=== PATIENT | female | born 1980 | race Caucasian/White ===

== ENCOUNTER 2016-04-11 15:14 | Inpatient (IN) | payer OTHER ==
[2016-04-11] MEDS ORDERED: NS 0.9% 1000 ML* 1,000 ML IV ONE ×2 (15:31→19:38)
[2016-04-11 15:51] LABS: Urine Bacteria Absent (Absent); Urine Bilirubin Negative (Negative); Urine Glucose Negative (Negative); Urine Nitrite Negative (Negative)
--- NOTE | 2016-04-11 16:07 | RAD ---
HISTORY: Swelling, status post penetrating injury to the left foot COMPARISONS: None VIEWS: 3, Frontal, lateral, and oblique views of the left foot FINDINGS: BONE DENSITY: Normal. BONES: There is no displaced fracture. JOINTS: There is no arthropathy. ALIGNMENT: There is no dislocation. SOFT TISSUES: There is extensive soft tissue swelling of the midfoot. On the frontal projection, there is a triangular 0.6 cm radiopaque foreign body between the first and second metatarsals. OTHER FINDINGS: None. IMPRESSION: EXTENSIVE SOFT TISSUE SWELLING WITH PROBABLE 0.6 CM RADIOPAQUE FOREIGN BODIES BETWEEN THE FIRST AND SECOND METATARSALS
[2016-04-11 16:15] LABS: Hematocrit 35 % (35-47); Hemoglobin 11.7 g/dl (12.0-16.0); Mean Corpuscular HGB Conc 34 g/dl (31-36); Mean Corpuscular Hemoglobin 28 pg (27-31); Mean Corpuscular Volume 82 fL (80-97); Mean Platelet Volume 7 um3 (7.4-10.4); Red Blood Count 4.23 10^6/ul (4.0-5.4); Red Cell Distribution Width 13 % (10.5-15); White Blood Count 13.1 10^3/ul (3.5-10.8)
[2016-04-11] MEDS ORDERED: Vancomycin(*) 1,000 MG in NS 0.9% 250 ML* 250 ML IVPB ONE (16:30)
[2016-04-11 16:31] LABS: BUN/Creatinine Ratio 10.8 (8-20); C Reactive Protein 77.33 mg/L (< 5.00); Calcium 10.3 mg/dL (8.6-10.3); EGFR African American 113.6 (>60); EGFR Non-African American 88.3 (>60); Globulin 4.9 g/dL (2-4); Potassium 3.7 mmol/L (3.5-5.0); Total Bilirubin 0.3 mg/dL (0.2-1.0); Total Protein 8.9 g/dL (6.4-8.9)
[2016-04-11] MEDS ORDERED: oxyCODONE/Acetamin 5/325 MG* TAB PO ONE (17:37)
--- NOTE | 2016-04-11 18:23 | RAD ---
HISTORY: Edema and wound overlying the dorsal left foot TECHNIQUE: Multiple transverse and longitudinal ultrasound images were obtained of the veins of the left lower extremity using grayscale, color Doppler, and spectral Doppler imaging with and without compression and with augmentation. FINDINGS: VEINS: The common femoral vein, deep femoral vein, femoral vein and popliteal vein are compressible throughout their course, with normal flow on color Doppler imaging and normal response to augmentation on spectral Doppler imaging. SOFT TISSUES: Lymph nodes measured in the left common femoral vein region measure up to 2.4 x 0.7 x 1.5 cm. IMPRESSION: No sonographic evidence of deep vein thrombosis.
--- NOTE | 2016-04-11 18:30 | RAD ---
INDICATION: Swelling and erythema overlying the dorsal left foot COMPARISON: Same day foot radiograph that depicted a possible foreign body TECHNIQUE: Real time ultrasound images of the dorsal left foot were acquired with mckay scale and Doppler color flow imaging. FINDINGS: Extensive subcutaneous edema and swelling is seen. There is no drainable fluid collection or other abscess. No sonographically apparent foreign body is identified. IMPRESSION: Soft tissue swelling as described above without identification of a foreign body or drainable abscess.
--- NOTE | 2016-04-11 18:44 | ED ---
I, Oh,Somana, scribed for Darin Guzman MD on 04/11/16 at 1557 . Lower Extremity - HPI Summary HPI Summary: This 35 y/o female presents to ED for LLE foot pain. Pt reports a fall a week ago, and had glass as FB she removed herself. Pt states that she has been avoiding being evaluated and treated due to her anxiety, but decided to visit ED today when she noticed edema and purulent drainage last night. Positive n/v TECHNOLOGY ARCHITECT. The wound has been treated by peroxide and drainage by "friend". Pt has been controlling her pain with Alleve. Ambulation makes the pain worse. PMHx includes gestational DM, asthma, HTN, and anxiety. Pt has been noncompliant to HTN medications. Pt is nonsmoker and nondrinker. Pt also reports heroine use, and reports injection at [facility] "over a month ago". - History of Current Complaint Chief Complaint: EDExtremityLower Stated Complaint: LT FOOT PAIN Time Seen by Provider: 04/11/16 15:31 Hx Obtained From: Patient Hx Last Menstrual Period: 1 WEEK AGO Mechanism Of Injury: Penetrating Trauma Onset of Pain: Immediate Onset/Duration: Still Present Pain Intensity: 10 Pain Scale Used: 0-10 Numeric Timing: Constant Location: Is Discrete @ - LLE foot dorsum Character Of Pain: Dull Associated Signs And Symptoms: Positive: Swelling, Other - draining Aggravating Factor(s): Standing Alleviating Factor(s): Rest, OTC Meds - Alleve Able to Bear Weight: Yes - Allergies/Home Medications Allergies/Adverse Reactions: Allergies Allergy/AdvReac Type Severity Reaction Status Date / Time Ketorolac Tromethamine Allergy Mild Rash, SOB Verified 08/24/15 12:27 [From Toradol] PMH/Surg Hx/FS Hx/Imm Hx Endocrine/Hematology History: Denies: Hx Diabetes - JUST GESTATIONAL DIABETES Cardiovascular History: Reports: Hx Hypertension Denies: Hx Pacemaker/ICD Respiratory History: Reports: Hx Asthma History: Denies: Hx Renal Disease Sensory History: Denies: Hx Hearing Aid Neurological History: Reports: Other Neuro Impairments/Disorders - 2013 BLUNT HEAD TRAUMA Psychiatric History: Reports: Hx Anxiety, Hx Depression Denies: Hx Panic Disorder - Surgical History Surgery Procedure, Year, and Place: TUBAL LIGATION-CLUB FEET A CHILD REPAIRED -THROAT ABSCESS SURGIALLY DRAINED. 2 Infectious Disease History: No Infectious Disease History: Denies: Traveled Outside the [place] in Last 30 Days - Family History Known Family History: Positive: Diabetes Negative: Hypertension - Social History Alcohol Use: None Hx Substance Use: Yes Substance Use Type: Reports: Heroin Substance Use Comment - Amount & Last Used: OXYCODONE, OXYCONTIN Hx Tobacco Use: No Smoking Status (MU): Never Smoked Tobacco Review of Systems Negative: Fever Positive: Vomiting, Nausea Positive: Other - edema and drainage at LLE foot dorsum Negative: Anxious, Depressed All Other Systems Reviewed And Are Negative: Yes Physical Exam - Summary Physical Exam Summary: Vital signs: reviewed General: Patient is comfortable lying in stretcher with no signs of distress HEENT: within normal limits Lungs: CTA B/L CVS: S1 & S2 present. No murmurs appreciated. Abdomen: Soft, NT, Positive BS. Extremities: FROM x4, positive extensive swelling of the LLE and wound with yellow discharge. Positive pulses. Neuro: Alert and oriented x 3. No acute neurological deficits. Skin: Warm and dry Triage Information Reviewed: Yes Vital Signs On Initial Exam: Initial Vitals Temp Pulse Resp BP Pulse Ox 98.1 F 113 20 177/108 100 04/11/16 15:17 04/11/16 15:17 04/11/16 15:17 04/11/16 15:17 04/11/16 15:17 Vital Signs Reviewed: Yes Diagnostics - Vital Signs Vital Signs Temp Pulse Resp BP Pulse Ox 04/11/16 15:17 98.1 F 113 20 177/108 100 - Laboratory Lab Results: Lab Results 04/11/16 04/11/16 04/11/16 Range/Units 15:30 16:05 16:05 WBC 13.1 H (3.5-10.8) 10^3/ul RBC 4.23 (4.0-5.4) 10^6/ul Hgb 11.7 L (12.0-16.0) g/dl Hct 35 (35-47) % MCV 82 (80-97) fL MCH 28 (27-31) pg MCHC 34 (31-36) g/dl RDW 13 (10.5-15) % Plt Count 578 H (150-450) 10^3/ul MPV 7 L (7.4-10.4) um3 Neut % (Auto) 71.0 (38-83) % Lymph % (Auto) 20.1 L (25-47) % Real % (Auto) 6.2 (1-9) % Eos % (Auto) 1.5 (0-6) % Baso % (Auto) 1.2 (0-2) % Absolute Neuts (auto) 9.3 H (1.5-7.7) 10^3/ul Absolute Lymphs (auto) 2.6 (1.0-4.8) 10^3/ul Absolute Monos (auto) 0.8 (0-0.8) 10^3/ul Absolute Eos (auto) 0.2 (0-0.6) 10^3/ul Absolute Basos (auto) 0.2 (0-0.2) 10^3/ul Absolute Nucleated RBC 0 10^3/ul Nucleated RBC % 0 Sodium 136 (133-145) mmol/L Potassium 3.7 (3.5-5.0) mmol/L Chloride 99 L (101-111) mmol/L Carbon Dioxide 29 (22-32) mmol/L Anion Gap 8 (2-11) mmol/L BUN 8 (6-24) mg/dL Creatinine 0.74 (0.51-0.95) mg/dL Est GFR ( Amer) 113.6 (>60) Est GFR (Non-Af Amer) 88.3 (>60) BUN/Creatinine Ratio 10.8 (8-20) Glucose 112 H (70-100) mg/dL Lactic Acid (0.5-2.0) mmol/L Calcium 10.3 (8.6-10.3) mg/dL Total Bilirubin 0.30 (0.2-1.0) mg/dL AST 10 L (13-39) U/L ALT 13 (7-52) U/L Alkaline Phosphatase 94 (34-104) U/L C-Reactive Protein 77.33 H (< 5.00) mg/L Total Protein 8.9 (6.4-8.9) g/dL Albumin 4.0 (3.2-5.2) g/dL Globulin 4.9 H (2-4) g/dL Albumin/Globulin Ratio 0.8 L (1-3) Urine Color Yellow Urine Appearance Cloudy Urine pH 6.0 (5-9) Ur Specific [place] 1.019 (1.010-1.030) Urine Protein Negative (Negative) Urine Ketones Negative (Negative) Urine Blood 1+ H (Negative) Urine Nitrate Negative (Negative) Urine Bilirubin Negative (Negative) Urine Urobilinogen Negative (Negative) Ur Leukocyte Esterase Negative (Negative) Urine WBC (Auto) Trace(0-5/hpf) (Absent) Urine RBC (Auto) 1+(3-5/hpf) H (Absent) Ur Squamous Epith Cells Present H (Absent) Urine Bacteria Absent (Absent) Urine Glucose Negative (Negative) 04/11/16 Range/Units 16:05 WBC (3.5-10.8) 10^3/ul RBC (4.0-5.4) 10^6/ul Hgb (12.0-16.0) g/dl Hct (35-47) % MCV (80-97) fL MCH (27-31) pg MCHC (31-36) g/dl RDW (10.5-15) % Plt Count (150-450) 10^3/ul MPV (7.4-10.4) um3 Neut % (Auto) (38-83) % Lymph % (Auto) (25-47) % Real % (Auto) (1-9) % Eos % (Auto) (0-6) % Baso % (Auto) (0-2) % Absolute Neuts (auto) (1.5-7.7) 10^3/ul Absolute Lymphs (auto) (1.0-4.8) 10^3/ul Absolute Monos (auto) (0-0.8) 10^3/ul Absolute Eos (auto) (0-0.6) 10^3/ul Absolute Basos (auto) (0-0.2) 10^3/ul Absolute Nucleated RBC 10^3/ul Nucleated RBC % Sodium (133-145) mmol/L Potassium (3.5-5.0) mmol/L Chloride (101-111) mmol/L Carbon Dioxide (22-32) mmol/L Anion Gap (2-11) mmol/L BUN (6-24) mg/dL Creatinine (0.51-0.95) mg/dL Est GFR ( Amer) (>60) Est GFR (Non-Af Amer) (>60) BUN/Creatinine Ratio (8-20) Glucose (70-100) mg/dL Lactic Acid 1.0 (0.5-2.0) mmol/L Calcium (8.6-10.3) mg/dL Total Bilirubin (0.2-1.0) mg/dL AST (13-39) U/L ALT (7-52) U/L Alkaline Phosphatase (34-104) U/L C-Reactive Protein (< 5.00) mg/L Total Protein (6.4-8.9) g/dL Albumin (3.2-5.2) g/dL Globulin (2-4) g/dL Albumin/Globulin Ratio (1-3) Urine Color Urine Appearance Urine pH (5-9) Ur Specific [place] (1.010-1.030) Urine Protein (Negative) Urine Ketones (Negative) Urine Blood (Negative) Urine Nitrate (Negative) Urine Bilirubin (Negative) Urine Urobilinogen (Negative) Ur Leukocyte Esterase (Negative) Urine WBC (Auto) (Absent) Urine RBC (Auto) (Absent) Ur Squamous Epith Cells (Absent) Urine Bacteria (Absent) Urine Glucose (Negative) Result Diagrams: 04/11/16 16:05 04/11/16 16:05 Lab Statement: Any lab studies that have been ordered have been reviewed, and results considered in the medical decision making process. - Radiology Left Foot Xray Interpretation: Positive (See Comments) - EXTENSIVE SOFT TISSUE SWELLING WITH PROBABLE 0.6 CM RADIOPAQUE FOREIGN BODIES BETWEEN THE FIRST AND SECOND METATARSALS Radiology Interpretation Completed By: Radiologist - Additional Comments Diagnostic Additional Comments: US Soft tissue, LLE -- Soft tissue swelling as described above without identification of a foreign body or drainable abscess. Venous Doppler Study -- No sonographic evidence of deep vein thrombosis. Re-Evaluation - Re-Evaluation First Eval Re-Evaluation Time: 16:20 Change: Unchanged Comment: MD in room to update pt on X-ray imaging result. Lower Extremity Course/Dx - Course Assessment/Plan: This 35 y/o female presents to ED for LLE foot pain. Pt reports a fall a week ago, and had glass as FB she removed herself. Pt states that she has been avoiding being evaluated and treated due to her anxiety, but decided to visit ED today when she noticed edema and purulent drainage last night. Positive n/v TECHNOLOGY ARCHITECT. The wound has been treated by peroxide and drainage by "friend. She also reports that she is heroin user and 2 weeks ago she tried to inject heroin in the area of the cellulitis. Patient was started in Vancomycin and Percocet for pain. Blood work: CBC shows increase WBCs of 13.1 , CRP 77.33. X ray of the left foot shows extensive soft tissue swelling with probable 0.6 cm radiopaque FB. Left LE U/S: No DVT. Left foot soft tissue U/S impression: Soft tissue swelling w/o FB or drainable abscess. In the Ed course she was started with Vancomycin since patient has HX of IVDU and cellulitis. I discuss my physical exam, findings and test results with Dr. Steven from the hospitalist services and she agrees to admit patient to his services. Patient is hemodynamically stable alert and oriented x 3. - Diagnoses Provider Diagnoses: Cellulitis Discharge - Discharge Plan Condition: Stable Disposition: ADMITTED TO [facility] Referrals: Brant Alvarez MD [Primary Care Provider] - The documentation as recorded by the Spencer zhong Soohyun accurately reflects the service I personally performed and the decisions made by me, Darin Guzman MD.
[2016-04-11] MEDS ORDERED: NS 0.9% 1000 ML* 1,000 ML IV SCH (19:45)
[2016-04-11] MEDS ORDERED: Acetaminophen TAB* 325 MG PO PRN (19:55)
[2016-04-11] MEDS ORDERED: Albuterol 2.5 MG/3 ML NEB.SOL* (0.083%) INH PRN (19:58)
[2016-04-11] MEDS ORDERED: Vancomycin(*) 0 MG in NS 0.9% 250 ML* 250 ML IVPB SCH (20:00)
--- NOTE | 2016-04-11 20:59 | RAD ---
INDICATION: Left foot swelling. Questionable foreign body identified on a radiograph. COMPARISON: Same day radiograph and ultrasound of the foot TECHNIQUE: Noncontrast CT examination of the left foot. Axial images were acquired and sagittal and coronal reformats were created and independently analyzed. FINDINGS: There is subcutaneous induration and thickening involving the foot, most severely seen at the dorsum of the midfoot. No radiographically apparent foreign body is identified. There is no drainable fluid collection. The bones are grossly normal. IMPRESSION: Soft tissue swelling without identification of foreign body or drainable fluid collection.
[2016-04-11] MEDS ORDERED: metroNIDAZOLE IV 500 MG/100ML* 500 MG/100 ML BAG IVPB SCH (21:00)
[2016-04-11] MEDS ORDERED: Vancomycin per Pharmacy* NOTE FOLLOW UP PRN (21:17)
[2016-04-11] MEDS: Naproxen TAB* 250 MG PO PRN (21:20)
[2016-04-11] MEDS ORDERED: Diphenoxylat/Atrop 2.5-0.025M* 1 TAB PO PRN (21:46)
[2016-04-11] MEDS ORDERED: Cefepime(*) 2 GM in NS 0.9% 50 ML* 50 ML IVPB SCH (22:00)
--- NOTE | 2016-04-11 22:12 | HP ---
HISTORY AND PHYSICAL: DATE OF ADMISSION: 04/11/16 TIME OF EVALUATION: 1899. ATTENDING PHYSICIAN: Dr. Dill *(report dictated by Dhara Cho NP) PRIMARY CARE PROVIDER: Stephany Machuca NP. CHIEF COMPLAINT: Left foot swelling and pain. HISTORY OF PRESENT ILLNESS: Ms. Lehman is a 35-year-old female with a past medical history of current IV drug use, anxiety, asthma, hypertension, in which she is noncompliant with taking her medications who presents to the emergency department today with report of her left foot being red and swollen for approximately 1 week. Ms. Lehman reports that she did inject heroin into her foot approximately a month ago and then also had an injury to the foot where she removed glass out of the top of her foot, then reporting that accident to be approximately "well over a week ago." She then reports a couple of days later noting her foot to be red and very swollen with difficulty walking on her foot. She reports approximately 2 days ago she noted the redness spreading up to her knee. Last evening she reports she noted a large blister on top of her foot in which she peeled away and it drained "all this fluid" and then she noted an open area under the blister. Her friend last evening tried to "drain the area by pushing on the open wound" and did receive some purulent drainage out of the wound. Today she reports that she continued to be in pain and was worried that it was red and hurting inside and came to the emergency department for further evaluation. She denies fevers or chills but reports that she did have nausea yesterday and then had some nausea and vomiting today. Denies rigors. She reports she has been using heroin for approximately a year and normally snorts heroin and frequently injects. The last time she used heroin was yesterday at 4 p.m. She reports that she is in the process of weaning herself. In the emergency department the patient is noted to have a mild leukocytosis of 13.1 with mild tachycardia in the low 100s. No fever noted. The patient underwent a foot x-ray, which shows "extensive soft tissue swelling with probable 0.6 cm radiopaque foreign body between the first and second metatarsal. " The patient then underwent a soft tissue ultrasound which showed "soft tissue swelling as described above without identification of a foreign body or drainable abscess." The patient will be admitted to the hospitalist service for IV antibiotics. PAST MEDICAL HISTORY: 1. Anxiety. 2. Gestational diabetes. 3. Asthma. 4. Hypertension, noncompliant. 5. History of IV drug use with heroin. MEDICATIONS: The patient currently reports that she is noncompliant with her medications, but normally takes: 1. Lisinopril. 2. Atenolol. 3. Xanax. 4. Citalopram. 5. Is compliant with her albuterol inhaler. ALLERGIES: KETOROLAC. FAMILY HISTORY: Mother has a history of skin cancer. SOCIAL HISTORY: No history of tobacco use. Denies alcohol use. Reports that she has abused heroin for approximately a year. She lives alone, sharing custody of her 2 children with her mother. Her mother is her healthcare proxy. REVIEW OF SYSTEMS: A 14-point review of systems was performed. All the pertinent positives and negatives are mentioned in the history of present illness. All the remaining systems negative. PHYSICAL EXAMINATION GENERAL APPEARANCE: Alert and oriented x3, 35-year-old female sitting up in the emergency department stretcher, anxious. VITAL SIGNS: Temperature 98.1, heart rate 101, respirations 13, O2 sat 99% on room air and blood pressure 127/65. HEENT: Head is normocephalic and atraumatic. Pupils equal, round, reactive to light. Oropharynx is clear. Dry mucous membranes. Good dentition. NECK: Supple. No cervical or supraclavicular lymphadenopathy. RESPIRATORY: Clear to auscultation bilaterally. Good aeration throughout. No accessory muscle use. CARDIAC: S1 and S2. No murmurs, rubs, or gallops appreciated. 2+ DP pulses bilaterally. Left lower extremity is 1 to 2+ nonpitting edema. ABDOMEN: Soft, nontender, and nondistended. Normal bowel sounds x4. Obese. MUSCULOSKELETAL: No clubbing or cyanosis noted. Full range of motion in all extremities. Strength is 5/5 throughout. SKIN: Left lower extremity including foot appears grossly edematous, tender to touch, erythematous with erythema spreading below the knee. Whole lower extremity from knee down appears edematous. No calf tenderness. On the top of the patient's foot, there appears to be a circular opening, which has ecchymosis surrounding the edge of the wound, which appears to be broken capillaries. No foul odor, no drainage noted. NEUROLOGIC: Cranial nerves II through XII are grossly intact. PSYCH: Alert and oriented x3, anxious. LABORATORY DATA AND DIAGNOSTIC STUDIES: WBC is 13.1, Hgb 11.7, HCT 35, platelet count 578. Sodium 136, potassium 3.7, chloride 99, carbon dioxide 29, anion gap 8, BUN 8, creatinine 0.74, glucose 112, lactic acid 1.0, calcium 10.3 , total bilirubin 0.30. AST 10, ALT 13, alkaline phosphatase 94, C-reactive protein 77.33, albumin 4.0. Urinalysis; 1+ blood, epithelial cells present high, otherwise negative. Left foot x-ray. Impression: Extensive soft tissue swelling, probable 0.6 cm radiopaque foreign bodies between the first and second metatarsal. Venous Doppler study of the left lower extremity. Impression: No evidence for deep venous thrombosis. Soft tissue ultrasound of the left lower extremity. Impression: Soft tissue swelling as described above without identification of a foreign body or drainable abscess. ASSESSMENT AND PLAN: Ms. Lehman is a 35-year-old female with a past medical history of IV drug use, anxiety, asthma and hypertension who presents to the emergency department today with a report of approximately a week or greater of left lower extremity swollen and painful foot. 1. Cellulitis of the left lower extremity. The patient will be admitted for IV antibiotics. There is no drainable abscess. She presents with a mild leukocytosis. No lactic acidosis. Mildly elevated heart rate. She appears dry on exam. She only received 1 L of normal saline in the emergency department , plan to give her another liter of normal saline wide open that run her at a rate of 125 mL an hour. Pain management. We will plan to obtain a left lower extremity CT to assess if there is a foreign object in the foot. We will ask ID to consult on the patient tomorrow. Wound culture to be sent. Blood cultures sent. Check CBC and BMP tomorrow. 2. Hypertension. The patient is noncompliant with her prescribed medications. The patient currently is controlled in the emergency department. We will start the patient on Norvasc and continue to monitor blood pressure. 3. Anxiety. It is apparent the patient has significant anxiety. We will start the patient back on her Celexa. She reports that she has recently this week started following with outpatient counsellor. 4. Heroin abuse. Per the patient, the last time she used was 4 p.m. yesterday afternoon. She denies any symptoms of withdrawal. She reports that this week she had an appointment with [facility] counselling as a plan to continue to follow with them. We will ask for social work consult. 5. DVT prophylaxis. Heparin subcu. 6. Code status, full code. The patient's mother, Steffany Lehman, is her healthcare proxy, number [phone] or [phone]. 7. Hospital status. OBV. TIME SPENT: Approximately 60 minutes was spent on this admission. This case was discussed with the attending physician, Dr. Dill, who agrees with the plan of care. DHARA CHO NP CC: Stephany Machuca NP* [id number]/CPS #: [id number] MTDD
[2016-04-11] MEDS: oxyCODONE/Acetamin 5/325 MG* TAB PO PRN (22:54)
[2016-04-11] MEDS: Temazepam CAP* 15 MG PO PRN (22:55)
[2016-04-11] MEDS: Heparin VIAL(*) 5000 UNITS/ML VIAL (FIVE THOUSAND) SUBCUT SCH (22:57)
[2016-04-11] MEDS: Albuterol HFA INHALER* 8 gm MDI INH PRN (23:08)
[2016-04-12] MEDS ORDERED: Vancomycin(*) 1,000 MG in NS 0.9% 250 ML* 250 ML IVPB SCH ×2
[2016-04-12] MEDS ORDERED: ZOSYN 3.375 GM ONE TIME DOSE-OVER 30 MINUTES IVPB (01:00)
[2016-04-12 05:35] LABS: Hematocrit 26 % (35-47); Mean Corpuscular HGB Conc 35 g/dl (31-36); Mean Corpuscular Hemoglobin 29 pg (27-31); Mean Corpuscular Volume 82 fL (80-97); Mean Platelet Volume 7 um3 (7.4-10.4); Red Blood Count 3.17 10^6/ul (4.0-5.4); Red Cell Distribution Width 13 % (10.5-15)
[2016-04-12 05:56] LABS: BUN/Creatinine Ratio 11.8 (8-20); Calcium 8.7 mg/dL (8.6-10.3); EGFR African American 125.2 (>60); EGFR Non-African American 97.4 (>60); Potassium 3.8 mmol/L (3.5-5.0)
[2016-04-12] MEDS: oxyCODONE/Acetamin 5/325 MG* TAB PO PRN ×3 (06:31→21:28)
[2016-04-12] MEDS: Albuterol HFA INHALER* 8 gm MDI INH PRN ×3 (06:59→20:28)
[2016-04-12] MEDS: amLODIPine TAB* 5 MG PO SCH (07:43)
[2016-04-12] MEDS: Heparin VIAL(*) 5000 UNITS/ML VIAL (FIVE THOUSAND) SUBCUT SCH ×2 (07:43→21:29)
[2016-04-12] MEDS: Citalopram TAB* 10 MG PO SCH (07:43)
[2016-04-12] MEDS ORDERED: Piperac/Tazob 3.375 gm in NS* 3.375 GM/100 ML BAG IVPB SCH (08:00)
[2016-04-12] MEDS ORDERED: Influenza VAC *QUAD* 2016-17* 0.5 ML SYRINGE IM ONE (09:00)
[2016-04-12] MEDS: Naproxen TAB* 250 MG PO PRN (09:24)
[2016-04-12] MEDS: Ondansetron INJ* 2 MG/ML VIAL IV PRN ×2 (09:24→21:37)
--- NOTE | 2016-04-12 09:40 | PN ---
Subjective Date of Service: 04/12/16 Interval History: pt reports she continues to be in a lot of pain stating multiple time "I have the right legally to not be in pain". I discussed pain management with the patient with suggesting to try to avoid narcotics if possible. Overall she thinks she feels better despite the "severe pain" in her foot rating it a 10/ 10. She reports the redness appears to be better. Denies N/V/D but reports MCCANN. pt denies fever or chills. Denies withdrawal symptoms stating "I think I did a good job weaning myself off heroin, Im so proud of myself". She states she has support from her mother. She thinks her MCCANN is from caffeine withdrawal, reporting when she detoxes from heroin she usually has severe diarrhea. Denies tremors or hallucinations. Objective Active Medications: Acetaminophen (Tylenol Tab*) 650 mg PO Q6H PRN PRN Reason: FEVER/PAIN Albuterol (Ventolin 2.5 Mg/3 Ml Neb.Connie*) 2.5 mg INH Q4H PRN PRN Reason: SOB/WHEEZING Albuterol (Ventolin Hfa Inhaler*) 2 puff INH Q4H PRN PRN Reason: SOB/WHEEZING Last Admin: 04/12/16 06:59 Dose: 2 puff Amlodipine Besylate (Norvasc Tab*) 5 mg PO DAILY [facility] Last Admin: 04/12/16 07:43 Dose: 5 mg Citalopram Hydrobromide (Celexa Tab*) 10 mg PO DAILY [facility] Last Admin: 04/12/16 07:43 Dose: 10 mg Diphenoxylate HCl/Atropine (Lomotil Tab*) 1 tab PO BID PRN PRN Reason: DIARRHEA Heparin Sodium (Porcine) (Heparin Vial(*)) 5,000 units SUBCUT Q12HR [facility] Last Admin: 04/12/16 07:43 Dose: 5,000 units Piperacillin Sod/Tazobactam Sod (Zosyn 3.375 Gm In Ns Premix*) 3.375 gm in 100 mls @ 25 mls/hr IVPB Q8H [facility] Last Admin: 04/12/16 07:43 Dose: 25 mls/hr Influenza Virus Vaccine (Fluarix *Quad* *) 0.5 ml IM .ONCE ONE Stop: 04/13/16 08:01 Naproxen (Naprosyn Tab*) 500 mg PO Q12H PRN PRN Reason: PAIN Last Admin: 04/11/16 21:20 Dose: 500 mg Ondansetron HCl (Zofran Inj*) 4 mg IV Q6H PRN PRN Reason: NAUSEA Oxycodone/Acetaminophen (Percocet 5/325 Tab*) 1 tab PO Q6H PRN PRN Reason: PAIN Last Admin: 04/12/16 06:31 Dose: 1 tab Temazepam (Restoril Cap*) 15 mg PO BEDTIME PRN PRN Reason: INSOMNIA Last Admin: 04/11/16 22:55 Dose: 15 mg Vital Signs 04/11/16 04/11/16 04/11/16 19:57 20:00 20:20 Temperature 98.1 F Pulse Rate 90 91 Respiratory 18 16 Rate Blood Pressure 152/89 154/105 127/65 (mmHg) O2 Sat by Pulse 100 Oximetry 04/11/16 04/11/16 04/11/16 20:44 20:45 22:54 Temperature 98.3 F 98.3 F Pulse Rate 90 90 Respiratory 16 18 20 Rate Blood Pressure 164/94 164/94 (mmHg) O2 Sat by Pulse 100 100 Oximetry 04/12/16 04/12/16 04/12/16 00:13 00:54 06:30 Temperature 98.3 F 98.1 F Pulse Rate 93 74 Respiratory 15 18 16 Rate Blood Pressure 150/74 133/71 (mmHg) O2 Sat by Pulse 99 99 Oximetry 04/12/16 04/12/16 06:31 08:24 Temperature Pulse Rate Respiratory 18 16 Rate Blood Pressure (mmHg) O2 Sat by Pulse Oximetry Oxygen Devices in Use Now: None Appearance: 35 yo female laying in bed in NAD. A+O x3 - appears comfortable Eyes: No Scleral Icterus, PERRLA Ears/Nose/Mouth/Throat: NL Teeth, Lips, Gums, Mucous Membranes Moist Neck: NL Appearance and Movements; NL JVP Respiratory: Symmetrical Chest Expansion and Respiratory Effort, Clear to Auscultation Cardiovascular: NL Sounds; No Murmurs; No JVD, RRR Abdominal: NL Sounds; No Tenderness; No Distention Skin: - - right foot appears swollen - dressing intact did not remove it - good feeling in toes, warm, pink, mildlt swollen. Neurological: Alert and Oriented x 3, NL Sensation, NL Muscle Strength and Tone Lines/Tubes/Other Access: Clean, Dry and Intact Peripheral IV Nutrition: Taking PO's Result Diagrams: 04/12/16 05:01 04/12/16 05:01 Additional Lab and Data: Lab Results 04/11/16 04/11/16 04/11/16 Range/Units 15:30 16:05 16:05 WBC 13.1 H (3.5-10.8) 10^3/ul RBC 4.23 (4.0-5.4) 10^6/ul Hgb 11.7 L (12.0-16.0) g/dl Hct 35 (35-47) % MCV 82 (80-97) fL MCH 28 (27-31) pg MCHC 34 (31-36) g/dl RDW 13 (10.5-15) % Plt Count 578 H (150-450) 10^3/ul MPV 7 L (7.4-10.4) um3 Neut % (Auto) 71.0 (38-83) % Lymph % (Auto) 20.1 L (25-47) % [place] % (Auto) 6.2 (1-9) % Eos % (Auto) 1.5 (0-6) % Baso % (Auto) 1.2 (0-2) % Absolute Neuts (auto) 9.3 H (1.5-7.7) 10^3/ul Absolute Lymphs (auto) 2.6 (1.0-4.8) 10^3/ul Absolute Monos (auto) 0.8 (0-0.8) 10^3/ul Absolute Eos (auto) 0.2 (0-0.6) 10^3/ul Absolute Basos (auto) 0.2 (0-0.2) 10^3/ul Absolute Nucleated RBC 0 10^3/ul Nucleated RBC % 0 Sodium 136 (133-145) mmol/L Potassium 3.7 (3.5-5.0) mmol/L Chloride 99 L (101-111) mmol/L Carbon Dioxide 29 (22-32) mmol/L Anion Gap 8 (2-11) mmol/L BUN 8 (6-24) mg/dL Creatinine 0.74 (0.51-0.95) mg/dL Est GFR ( Amer) 113.6 (>60) Est GFR (Non-Af Amer) 88.3 (>60) BUN/Creatinine Ratio 10.8 (8-20) Glucose 112 H (70-100) mg/dL Lactic Acid (0.5-2.0) mmol/L Calcium 10.3 (8.6-10.3) mg/dL Total Bilirubin 0.30 (0.2-1.0) mg/dL AST 10 L (13-39) U/L ALT 13 (7-52) U/L Alkaline Phosphatase 94 (34-104) U/L C-Reactive Protein 77.33 H (< 5.00) mg/L Total Protein 8.9 (6.4-8.9) g/dL Albumin 4.0 (3.2-5.2) g/dL Globulin 4.9 H (2-4) g/dL Albumin/Globulin Ratio 0.8 L (1-3) Urine Color Yellow Urine Appearance Cloudy Urine pH 6.0 (5-9) Ur Specific [place] 1.019 (1.010-1.030) Urine Protein Negative (Negative) Urine Ketones Negative (Negative) Urine Blood 1+ H (Negative) Urine Nitrate Negative (Negative) Urine Bilirubin Negative (Negative) Urine Urobilinogen Negative (Negative) Ur Leukocyte Esterase Negative (Negative) Urine WBC (Auto) Trace(0-5/hpf) (Absent) Urine RBC (Auto) 1+(3-5/hpf) H (Absent) Ur Squamous Epith Cells Present H (Absent) Urine Bacteria Absent (Absent) Urine Glucose Negative (Negative) 04/11/16 Range/Units 16:05 WBC (3.5-10.8) 10^3/ul RBC (4.0-5.4) 10^6/ul Hgb (12.0-16.0) g/dl Hct (35-47) % MCV (80-97) fL MCH (27-31) pg MCHC (31-36) g/dl RDW (10.5-15) % Plt Count (150-450) 10^3/ul MPV (7.4-10.4) um3 Neut % (Auto) (38-83) % Lymph % (Auto) (25-47) % [place] % (Auto) (1-9) % Eos % (Auto) (0-6) % Baso % (Auto) (0-2) % Absolute Neuts (auto) (1.5-7.7) 10^3/ul Absolute Lymphs (auto) (1.0-4.8) 10^3/ul Absolute Monos (auto) (0-0.8) 10^3/ul Absolute Eos (auto) (0-0.6) 10^3/ul Absolute Basos (auto) (0-0.2) 10^3/ul Absolute Nucleated RBC 10^3/ul Nucleated RBC % Sodium (133-145) mmol/L Potassium (3.5-5.0) mmol/L Chloride (101-111) mmol/L Carbon Dioxide (22-32) mmol/L Anion Gap (2-11) mmol/L BUN (6-24) mg/dL Creatinine (0.51-0.95) mg/dL Est GFR ( Amer) (>60) Est GFR (Non-Af Amer) (>60) BUN/Creatinine Ratio (8-20) Glucose (70-100) mg/dL Lactic Acid 1.0 (0.5-2.0) mmol/L Calcium (8.6-10.3) mg/dL Total Bilirubin (0.2-1.0) mg/dL AST (13-39) U/L ALT (7-52) U/L Alkaline Phosphatase (34-104) U/L C-Reactive Protein (< 5.00) mg/L Total Protein (6.4-8.9) g/dL Albumin (3.2-5.2) g/dL Globulin (2-4) g/dL Albumin/Globulin Ratio (1-3) Urine Color Urine Appearance Urine pH (5-9) Ur Specific [place] (1.010-1.030) Urine Protein (Negative) Urine Ketones (Negative) Urine Blood (Negative) Urine Nitrate (Negative) Urine Bilirubin (Negative) Urine Urobilinogen (Negative) Ur Leukocyte Esterase (Negative) Urine WBC (Auto) (Absent) Urine RBC (Auto) (Absent) Ur Squamous Epith Cells (Absent) Urine Bacteria (Absent) Urine Glucose (Negative) Microbiology and Other Data: Microbiology 04/11/16 20:35 Skin and Soft Tissue MRSA/MSSA (PCR - Final Foot Left Mrsa Negative S.aureus Positive Gram Stain - Final Assess/Plan/Problems-Billing Assessment: Ms. Lehman is a 35 yo female with a PMH of heroin abuse, anxiety, asthma, HTN and noncompliance who presented to the ED on 04/11 with c/o of left foot swelling, pain and redness. - Patient Problems (1) Cellulitis Comment: - small improvement today. No fevers or leukocytosis. Wound growing Staph - MRI showing no noted foreign object. No abscess noted. - Appreciate ID consult - continue Ancef and flagyl - Plan for Ortho consult by Dr. Foss. - Daily dressing changes (2) Anxiety Comment: - pt reports she take xanax at home but it sound like she doesnt currently have a prescription. Recommended for patient to follow up with primary as well as cousneling services. (3) Asthma Comment: - controlled. continue albuterol prn (4) Hypertension Comment: - non-compliant at home with medications. Continue norvasc - much better control today. (5) Heroin abuse Comment: - pt reports she just weaned herself and last time she used was 04/10. She reports she just started going to [facility]. Social work to consult. (6) Full code status (7) DVT prophylaxis Comment: HSQ Status and Disposition: OBV switch to inpatient for IV antibiotics.
[2016-04-12] MEDS: metroNIDAZOLE IV 500 MG/100ML* 500 MG/100 ML BAG IVPB SCH ×2 (10:31→21:28)
[2016-04-12] MEDS ORDERED: oxyCODONE/Acetamin 5/325 MG* TAB PO PRN ×2 (12:13→14:48)
--- NOTE | 2016-04-12 13:28 | RAD ---
Indication: LEFT foot infection following laceration on dorsum of foot with glass. Cellulitis. Comparison: April 11, 2016 CT. Technique: [employer] 1.5 Frances [id number] with GEM suite. Noncontrast MRI LEFT foot with incomplete inclusion of the hindfoot. Report: Extensive dermal and subcutaneous edema over the dorsum of the mid and forefoot. Suggestion of an open wound dorsal to the heads of the second and third metatarsals extending up to 0.7 cm in depth from the skin surface. In addition there is edema within the intrinsic musculature in the first through fourth intermetatarsal spaces. No loculated fluid collection evident. No suspicious bone marrow signal abnormality evident. IMPRESSION: 1. Given the clinical scenario the constellation of findings is consistent with cellulitis and myositis. No loculated abscess collection evident. 2. No conspicuous foreign body evident. 3. Negative for suspicious bone marrow signal abnormality to raise concern for osteomyelitis.
[2016-04-12] MEDS ORDERED: Vancomycin Trough Check NOTE FOLLOW UP ONE (15:30)
--- NOTE | 2016-04-12 15:31 | CONS ---
CONSULTATION REPORT: DATE OF CONSULT: 04/12/16 REQUESTING PROVIDER: Breanne Johnson NP CONSULTING SERVICE: Infectious Disease. REASON FOR CONSULT: Left foot infection. IMPRESSION: 1. Left foot cellulitis, infective myositis, and question acute osteomyelitis of the second or third distal metatarsal. I reviewed the x-ray. It does look to be an opaque object there, but was not confirmed on the CT or ultrasound. She said she pulled some glass out already. There could be some more left behind. Given the duration of her symptoms, which upon further questioning, she endorses probably over a month, I think the possibility of acute osteomyelitis is high in the differential. Swab has shown gram-positive cocci on Gram-stain and PCR is positive for Staphylococcus aureus, negative from methicillin-resistant Staphylococcus aureus. 2. History of clubfoot with bilateral foot surgeries. 3. Injection drug use, heroin, in brief remission. 4. Gestational diabetes. 5. Leukocytosis. 6. Elevated C-reactive protein. RECOMMENDATION: Change antibiotics to Ancef 2 g IV every 8 hours and Flagyl 500 mg IV every 12 hours. We will check an MRI without contrast to evaluate for osteomyelitis and further for foreign body. I discussed the case with Dr. Foss, asked him to see the patient regarding debridement and question of a foreign body. Check hepatitis C antibody and HIV antibody. HISTORY OF PRESENT ILLNESS: This is 35-year-old woman with a history of clubfeet and foot surgeries, admitted with left foot infection. She has injected in the veins of her plantar feet bilaterally from time to time. Over the last month, she has had area of swelling on the plantar left forefoot, which for about the last 3 to 4 weeks has become red, swollen, more painful, an open area developed with occasional purulent drainage after a friend of her's did a bedside lancing of it at home. Because of worsening pain, swelling, nausea, and fever, she came to the hospital on the and x-ray of the foot was done, the report noted soft tissue swelling with probable 0.6-cm radiopaque foreign body between the first and second metatarsal. CT was done that showed soft tissue swelling without identification of foreign body or drainable fluid collection. She has had no fever here. The pain and swelling are decreased little bit since being placed on vancomycin, cefepime, and Flagyl yesterday. She has no pain in the ankle with weightbearing and the foot itself (forefoot) is worse with weightbearing. She has had swelling and warmth in her left lower leg as well and that has receded overnight. Swab of the ulcer on the dorsal left foot was taken, showed 2+ polys, 1+ gram-positive cocci, PCR was Staph aureus positive, MRSA negative. She has not had a foot infection like this in the past or required hospitalization for infection in the past. She has significant left foot pain, which has improved with Tylenol, ibuprofen, and morphine she had in the ER. It is worse with weightbearing as I mentioned. PAST MEDICAL HISTORY: 1. Anxiety. 2. Gestational diabetes. 3. Asthma. 4. Hypertension. 5. IV drug use, in brief remission, uses heroin. MEDICATIONS: 1. Tylenol. 2. Albuterol. 3. Celexa. 4. Heparin subcutaneous injection. 5. Cefepime 2 g every 8 hours. 6. Naproxen. 7. Vancomycin 1 g every 12 hours. 8. Flagyl 500 mg every 12 hours. 9. Oxycodone p.r.n. ALLERGIES: KETOROLAC. FAMILY HISTORY: No recurrent infections. SOCIAL HISTORY: She lives in [place]. She does inject heroin occasionally. She has no travel or sick contacts. REVIEW OF SYSTEMS: All negative except as noted above. PHYSICAL EXAM: Vitals Signs: Temperature is 36.7, heart rate 70, respiratory rate 16, blood pressure 130/70, O2 sat 99% on room air. General: She is in no acute distress, not diaphoretic. Neurologically, she is awake and oriented x3, follows all commands, moves all extremities. Neck: Supple without nuchal rigidity. HEENT: There is no conjunctival hemorrhage. Oropharynx without lesions. Lymph Nodes: There is no cervical, supraclavicular, inguinal, axillary, or epitrochlear lymphadenopathy. Heart: Regular rate and rhythm without murmurs, rubs, or gallops. Lungs: Clear to auscultation bilaterally. Abdomen: Soft, nontender, and nondistended without hepatosplenomegaly. Skin: There is no rash or splinter hemorrhages. Musculoskeletal: There is no spine tenderness to palpation. The left lower leg, there is diffuse edema through the forefoot. There is no crepitus or fluctuance centered over the medial forefoot. There is a 2 x 2 cm area of purplish discoloration with surrounding erythema that covers most of the forefoot. No crepitus or fluctuance there. There is mild induration. There is tenderness to palpation throughout the forefoot. The left ankle, there is no pain with flexion, extension, pronation, or supination. There is no ankle effusion. There is diffuse edema though. LABORATORY DATA: Creatinine is 0.7. CRP 77. White blood cell count 8 down from 13, hemoglobin 9, platelets 435. Please see impressions and recommendations as outlined above. Thanks for asking me to see Ms. Lehman in consultation. [id number]/CPS #: [id number] MTDD
[2016-04-12] MEDS: ceFAZolin 2 GM PREMIX (*) 2 GM/50 ML BAG IVPB SCH (16:32)
[2016-04-12] MEDS: Temazepam CAP* 15 MG PO PRN (21:28)
[2016-04-12] MEDS ORDERED: DIPHENHYDRAMINE 2% TOPICAL PRN (23:51)
[2016-04-13] MEDS ORDERED: diPHENhydraMINE PO* 25 MG PO PRN (00:25)
[2016-04-13] MEDS: ceFAZolin 2 GM PREMIX (*) 2 GM/50 ML BAG IVPB SCH ×4 (00:31→23:51)
[2016-04-13] MEDS: Albuterol HFA INHALER* 8 gm MDI INH PRN ×3 (00:37→17:33)
[2016-04-13] MEDS: oxyCODONE/Acetamin 5/325 MG* TAB PO PRN ×4 (05:32→19:49)
[2016-04-13 06:00] LABS: Hematocrit 29 % (35-47); Hemoglobin 9.5 g/dl (12.0-16.0); Mean Corpuscular HGB Conc 33 g/dl (31-36); Mean Corpuscular Hemoglobin 27 pg (27-31); Mean Corpuscular Volume 82 fL (80-97); Mean Platelet Volume 7 um3 (7.4-10.4); Red Blood Count 3.48 10^6/ul (4.0-5.4); Red Cell Distribution Width 13 % (10.5-15); White Blood Count 8.2 10^3/ul (3.5-10.8)
[2016-04-13 06:21] LABS: BUN/Creatinine Ratio 13.6 (8-20); Calcium 9.4 mg/dL (8.6-10.3); EGFR African American 102.3 (>60); EGFR Non-African American 79.6 (>60); Potassium 3.9 mmol/L (3.5-5.0)
[2016-04-13] MEDS: Heparin VIAL(*) 5000 UNITS/ML VIAL (FIVE THOUSAND) SUBCUT SCH ×2 (07:59→20:32)
[2016-04-13] MEDS ORDERED: Influenza VAC *QUAD* 2016-17* 0.5 ML SYRINGE IM ONE (08:00)
[2016-04-13] MEDS: metroNIDAZOLE IV 500 MG/100ML* 500 MG/100 ML BAG IVPB SCH ×2 (09:17→21:45)
[2016-04-13] MEDS: amLODIPine TAB* 5 MG PO SCH (09:18)
--- NOTE | 2016-04-13 10:01 | PN ---
Progress Note - Progress Note SOAP: Subjective: DOS: 04/13/16 CC: foot infection HPI: 35 year old woman with hx club feet now with left foot abscess and wound infection at previous injection site. FB on Xray not seen on CT or MRI. Foot pain continues, still swollen though a little less. Pain /10, pain medicine helps. No fever, rash, or diarrhea. Objective: [] Vital Signs Temp 36.7 C 04/13/16 07:52 Pulse 88 04/13/16 08:41 Resp 14 04/13/16 08:41 BP 165/104 04/13/16 07:52 Pulse Ox 98 04/13/16 08:41 Intake & Output 04/12/16 04/13/16 04/13/16 18:59 06:59 18:59 Intake Total 2184 1445 0 Output Total 4500 1700 300 Balance -2316 -255 -300 Weight 158 lb 0.64 oz Intake: IV Fluids 875 40 ABX - ZOSYN 110 NS (0.9%) 765 40 IVPB 449 165 ABX - CEFAZOLIN 55 ABX - CEFEPIME 65 ABX - FLAGYL 219 110 ABX - ZOSYN 165 Oral 860 1240 0 Output: Urine 3300 1700 300 Schwartz 1200 Other: Estimated Void Medium Medium # Bowel Movements 0 0 # Voids 1 0 1 Gen:Awake, NAD Neuro: alert, Ox3, sensation intact to light touch BL LE HEENT:PERRL, MMM Neck:supple Heart:RRR no murmur Lungs:CTA BL Abd:+BS NTND soft Skin: no rash MSK: Left foot wrapped Sodium 137 mmol/L (133-145) 04/13/16 05:10 Potassium 3.9 mmol/L (3.5-5.0) 04/13/16 05:10 BUN 11 mg/dL (6-24) 04/13/16 05:10 Creatinine 0.81 mg/dL (0.51-0.95) 04/13/16 05:10 Hemoglobin A1c 5.3 % (Less than 6.0) 04/11/16 16:05 Calcium 9.4 mg/dL (8.6-10.3) 04/13/16 05:10 AST 10 U/L (13-39) L 04/11/16 16:05 ALT 13 U/L (7-52) 04/11/16 16:[address] images reviewed; by report no osteomyelitis or FB Assessment: 1. left foot cellulitis, infective myositis, wound infection due to MSSA 2. 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 elevated CRP Plan: 1. Continue ancef 2 gm IV Q8hrs and flagyl 500 mg IV Q12hrs 2. I&D planned by Dr Foss for today, duration of abx pending his findings, but continue IV at least another 24 hours Discussed with AMNA Ramirez
--- NOTE | 2016-04-13 10:38 | PN ---
Subjective Date of Service: 04/13/16 Interval History: Patient seen and examined at bedside. She is in the room with her mother and her son, Maurilio. She reports, "I'm not supposed to eat because I'm having surgery today. I'm really anxious about the anesthesia." We discussed her anxieties, and the patient verbalized understanding and felt better about the procedure. She denies fever/chills, CP, SOB, abd pain, n/v. She does not feel as if she is having any withdrawal symptoms. She reports persistent pain to LLE that is better with pain medication. No other nursing concerns at this time. Family History: Unchanged from Admission Social History: Unchanged from Admission Past Medical History: Unchanged from Admission Objective Active Medications: Acetaminophen (Tylenol Tab*) 650 mg PO Q6H PRN PRN Reason: FEVER/PAIN Albuterol (Ventolin 2.5 Mg/3 Ml Neb.Connie*) 2.5 mg INH Q4H PRN PRN Reason: SOB/WHEEZING Albuterol (Ventolin Hfa Inhaler*) 2 puff INH Q4H PRN PRN Reason: SOB/WHEEZING Last Admin: 04/13/16 07:59 Dose: 2 puff Amlodipine Besylate (Norvasc Tab*) 5 mg PO DAILY [facility] Last Admin: 04/13/16 09:18 Dose: 5 mg Citalopram Hydrobromide (Celexa Tab*) 10 mg PO DAILY [facility] Last Admin: 04/12/16 07:43 Dose: 10 mg Diphenhydramine HCl (Benadryl Po*) 25 mg PO TID PRN PRN Reason: ITCHING Last Admin: 04/13/16 00:31 Dose: 25 mg Diphenoxylate HCl/Atropine (Lomotil Tab*) 1 tab PO BID PRN PRN Reason: DIARRHEA Heparin Sodium (Porcine) (Heparin Vial(*)) 5,000 units SUBCUT Q12HR [facility] Last Admin: 04/13/16 07:59 Dose: 5,000 units Cefazolin Sodium/Dextrose (Kefzol Premix(*)) 2 gm in 50 mls @ 100 mls/hr IVPB Q8H [facility] Last Admin: 04/13/16 07:58 Dose: 100 mls/hr Metronidazole/Sodium Chloride (Flagyl 500 Mg Ivpb*) 500 mg in 100 mls @ 100 mls /hr IVPB Q12H [facility] Last Admin: 04/13/16 09:17 Dose: 100 mls/hr Naproxen (Naprosyn Tab*) 500 mg PO Q12H PRN PRN Reason: PAIN Last Admin: 04/12/16 09:24 Dose: 500 mg Ondansetron HCl (Zofran Inj*) 4 mg IV Q6H PRN PRN Reason: NAUSEA Last Admin: 04/12/16 21:37 Dose: 4 mg Oxycodone/Acetaminophen (Percocet 5/325 Tab*) 1 tab PO Q4H PRN PRN Reason: PAIN Oxycodone/Acetaminophen (Percocet 5/325 Tab*) 2 tab PO Q4H PRN PRN Reason: PAIN Last Admin: 04/13/16 10:14 Dose: 2 tab Temazepam (Restoril Cap*) 15 mg PO BEDTIME PRN PRN Reason: INSOMNIA Last Admin: 04/12/16 21:28 Dose: 15 mg Vital Signs 04/12/16 04/12/16 04/12/16 12:26 14:15 15:24 Temperature 97.7 F Pulse Rate 89 Respiratory 16 16 15 Rate Blood Pressure 133/77 (mmHg) O2 Sat by Pulse 100 Oximetry 04/12/16 04/12/16 04/12/16 16:31 18:26 20:00 Temperature Pulse Rate 89 Respiratory 16 16 16 Rate Blood Pressure (mmHg) O2 Sat by Pulse 99 Oximetry 04/12/16 04/12/16 04/12/16 21:28 23:28 23:42 Temperature 98.3 F Pulse Rate 96 Respiratory 18 16 16 Rate Blood Pressure 159/93 (mmHg) O2 Sat by Pulse 99 Oximetry 04/13/16 04/13/16 04/13/16 00:31 02:31 05:32 Temperature Pulse Rate Respiratory 16 16 16 Rate Blood Pressure (mmHg) O2 Sat by Pulse Oximetry 04/13/16 04/13/16 04/13/16 07:52 08:41 10:14 Temperature 98.1 F Pulse Rate 89 88 Respiratory 16 14 20 Rate Blood Pressure 165/104 (mmHg) O2 Sat by Pulse 100 98 Oximetry Oxygen Devices in Use Now: None Appearance: Female patient, sitting up in bed, with son in her lap, in NAD Eyes: PERRLA Ears/Nose/Mouth/Throat: Clear Oropharnyx, Mucous Membranes Moist Neck: NL Appearance and Movements; NL JVP Respiratory: Symmetrical Chest Expansion and Respiratory Effort, Clear to Auscultation Cardiovascular: NL Sounds; No Murmurs; No JVD, RRR Abdominal: NL Sounds; No Tenderness; No Distention Extremities: No Clubbing, Cyanosis, - - LLE wrapped, good distal movement/ sensation, brisk cap refill. Some purulent drainage noted from open area between great and second toe Skin: - - right foot swollen, positive movement, sensation Neurological: Alert and Oriented x 3 Lines/Tubes/Other Access: Clean, Dry and Intact Peripheral IV Nutrition: Taking PO's - currently NPO for procedure Result Diagrams: 04/13/16 05:10 04/13/16 05:10 Additional Lab and Data: Lab Results 04/11/16 04/11/16 04/11/16 Range/Units 15:30 16:05 16:05 WBC 13.1 H (3.5-10.8) 10^3/ul RBC 4.23 (4.0-5.4) 10^6/ul Hgb 11.7 L (12.0-16.0) g/dl Hct 35 (35-47) % MCV 82 (80-97) fL MCH 28 (27-31) pg MCHC 34 (31-36) g/dl RDW 13 (10.5-15) % Plt Count 578 H (150-450) 10^3/ul MPV 7 L (7.4-10.4) um3 Neut % (Auto) 71.0 (38-83) % Lymph % (Auto) 20.1 L (25-47) % [place] % (Auto) 6.2 (1-9) % Eos % (Auto) 1.5 (0-6) % Baso % (Auto) 1.2 (0-2) % Absolute Neuts (auto) 9.3 H (1.5-7.7) 10^3/ul Absolute Lymphs (auto) 2.6 (1.0-4.8) 10^3/ul Absolute Monos (auto) 0.8 (0-0.8) 10^3/ul Absolute Eos (auto) 0.2 (0-0.6) 10^3/ul Absolute Basos (auto) 0.2 (0-0.2) 10^3/ul Absolute Nucleated RBC 0 10^3/ul Nucleated RBC % 0 Sodium 136 (133-145) mmol/L Potassium 3.7 (3.5-5.0) mmol/L Chloride 99 L (101-111) mmol/L Carbon Dioxide 29 (22-32) mmol/L Anion Gap 8 (2-11) mmol/L BUN 8 (6-24) mg/dL Creatinine 0.74 (0.51-0.95) mg/dL Est GFR ( Amer) 113.6 (>60) Est GFR (Non-Af Amer) 88.3 (>60) BUN/Creatinine Ratio 10.8 (8-20) Glucose 112 H (70-100) mg/dL Lactic Acid (0.5-2.0) mmol/L Calcium 10.3 (8.6-10.3) mg/dL Total Bilirubin 0.30 (0.2-1.0) mg/dL AST 10 L (13-39) U/L ALT 13 (7-52) U/L Alkaline Phosphatase 94 (34-104) U/L C-Reactive Protein 77.33 H (< 5.00) mg/L Total Protein 8.9 (6.4-8.9) g/dL Albumin 4.0 (3.2-5.2) g/dL Globulin 4.9 H (2-4) g/dL Albumin/Globulin Ratio 0.8 L (1-3) Urine Color Yellow Urine Appearance Cloudy Urine pH 6.0 (5-9) Ur Specific [place] 1.019 (1.010-1.030) Urine Protein Negative (Negative) Urine Ketones Negative (Negative) Urine Blood 1+ H (Negative) Urine Nitrate Negative (Negative) Urine Bilirubin Negative (Negative) Urine Urobilinogen Negative (Negative) Ur Leukocyte Esterase Negative (Negative) Urine WBC (Auto) Trace(0-5/hpf) (Absent) Urine RBC (Auto) 1+(3-5/hpf) H (Absent) Ur Squamous Epith Cells Present H (Absent) Urine Bacteria Absent (Absent) Urine Glucose Negative (Negative) 04/11/16 Range/Units 16:05 WBC (3.5-10.8) 10^3/ul RBC (4.0-5.4) 10^6/ul Hgb (12.0-16.0) g/dl Hct (35-47) % MCV (80-97) fL MCH (27-31) pg MCHC (31-36) g/dl RDW (10.5-15) % Plt Count (150-450) 10^3/ul MPV (7.4-10.4) um3 Neut % (Auto) (38-83) % Lymph % (Auto) (25-47) % [place] % (Auto) (1-9) % Eos % (Auto) (0-6) % Baso % (Auto) (0-2) % Absolute Neuts (auto) (1.5-7.7) 10^3/ul Absolute Lymphs (auto) (1.0-4.8) 10^3/ul Absolute Monos (auto) (0-0.8) 10^3/ul Absolute Eos (auto) (0-0.6) 10^3/ul Absolute Basos (auto) (0-0.2) 10^3/ul Absolute Nucleated RBC 10^3/ul Nucleated RBC % Sodium (133-145) mmol/L Potassium (3.5-5.0) mmol/L Chloride (101-111) mmol/L Carbon Dioxide (22-32) mmol/L Anion Gap (2-11) mmol/L BUN (6-24) mg/dL Creatinine (0.51-0.95) mg/dL Est GFR ( Amer) (>60) Est GFR (Non-Af Amer) (>60) BUN/Creatinine Ratio (8-20) Glucose (70-100) mg/dL Lactic Acid 1.0 (0.5-2.0) mmol/L Calcium (8.6-10.3) mg/dL Total Bilirubin (0.2-1.0) mg/dL AST (13-39) U/L ALT (7-52) U/L Alkaline Phosphatase (34-104) U/L C-Reactive Protein (< 5.00) mg/L Total Protein (6.4-8.9) g/dL Albumin (3.2-5.2) g/dL Globulin (2-4) g/dL Albumin/Globulin Ratio (1-3) Urine Color Urine Appearance Urine pH (5-9) Ur Specific [place] (1.010-1.030) Urine Protein (Negative) Urine Ketones (Negative) Urine Blood (Negative) Urine Nitrate (Negative) Urine Bilirubin (Negative) Urine Urobilinogen (Negative) Ur Leukocyte Esterase (Negative) Urine WBC (Auto) (Absent) Urine RBC (Auto) (Absent) Ur Squamous Epith Cells (Absent) Urine Bacteria (Absent) Urine Glucose (Negative) Microbiology and Other Data: Microbiology 04/11/16 20:35 Skin and Soft Tissue MRSA/MSSA (PCR - Final Foot Left Mrsa Negative S.aureus Positive Gram Stain - Final Assess/Plan/Problems-Billing Assessment: Ms. Lehman is a 35 yo female with a PMH of heroin abuse, anxiety, asthma, HTN and noncompliance who presented to the ED on 04/11 with c/o of left foot swelling, pain and redness. - Patient Problems (1) Cellulitis Code(s): L03.90 - CELLULITIS, UNSPECIFIED Comment: Pain better controlled today. Afebrile, no leukocytosis. Wound growing Staph. Appreciate ID consult. Continue Ancef and Flagyl. Appreciate ortho consult. Plan for I&D in OR today. MRI showing no noted foreign object. No abscess noted. Daily dressing changes (2) Anxiety Code(s): F41.9 - ANXIETY DISORDER, UNSPECIFIED Comment: Continue supportive care. Pt reports she take Xanax at home, but it sound like she doesn't currently have a prescription. Recommended for patient to follow up with primary as well as counseling services. (3) Asthma Code(s): J45.909 - UNSPECIFIED ASTHMA, UNCOMPLICATED Comment: Controlled. Continue albuterol prn. (4) Hypertension Code(s): I10 - ESSENTIAL (PRIMARY) HYPERTENSION Comment: Normotensive to hypertensive. Suspect anxiety is causing BP to rise. Continue amlodipine. Patient previously non-compliant at home with medication. (5) Heroin abuse Code(s): F11.10 - OPIOID ABUSE, UNCOMPLICATED Comment: Pt reports she just weaned herself, and the last time she used was 04/10. She reports she just started going to [facility]. Social work to consult. (6) DVT prophylaxis Comment: HSQ (7) Full code status Code(s): Z78.9 - OTHER SPECIFIED HEALTH STATUS Status and Disposition: Inpatient. Anticipate LOS >2 days for IV abx treatment.
[2016-04-13] MEDS: Citalopram TAB* 10 MG PO SCH (11:45)
[2016-04-13] MEDS ORDERED: Famotidine IV* 10 MG/ML 2 ML (20 mg) IV ONE (11:57)
[2016-04-13] MEDS ORDERED: Buffered Lidocaine 1% SYR 3ML* 3 ML/SYR SYRINGE INTRADERM ONE (11:57)
[2016-04-13] MEDS ORDERED: Levalbuterol 0.63MG/3ML NEB INH ONE (11:57)
[2016-04-13] MEDS ORDERED: Famotidine IV* 10 MG/ML 2 ML (20 mg) ONE (12:03)
[2016-04-13] MEDS ORDERED: Levalbuterol 1.25MG/0.5ML NEB ONE (12:03)
[2016-04-13] MEDS ORDERED: Ondansetron INJ* 2 MG/ML VIAL IV PRN (12:25)
[2016-04-13] MEDS ORDERED: HYDROmorphone INJ* 1 MG/ML CARPUJECT SYRINGE IV PRN (12:25)
[2016-04-13] MEDS ORDERED: fentaNYL* 50 MCG/ML 2 ML VIAL (100 MCG VIAL) IV PRN (12:25)
[2016-04-13] MEDS ORDERED: fentaNYL* 50 MCG/ML 2 ML VIAL (100 MCG VIAL) ONE ×2 (12:31→12:44)
[2016-04-13] MEDS ORDERED: Chloroprocaine 2%* 20 ML VIAL ONE (12:44)
[2016-04-13] MEDS ORDERED: Lidocaine 2% MPF* 2 ML VIAL ONE (13:14)
[2016-04-13] MEDS ORDERED: oxyCODONE/Acetamin 5/325 MG* TAB ONE (14:32)
[2016-04-13] MEDS ORDERED: hydrALAZINE IV* 20 MG/ML VIAL IV SLOW PU ONE (16:48)
[2016-04-13] MEDS ORDERED: hydrALAZINE IV* 20 MG/ML VIAL IV SLOW PU PRN (16:48)
[2016-04-13] MEDS: Naproxen TAB* 250 MG PO PRN (17:31)
[2016-04-13] MEDS ORDERED: fentaNYL* 50 MCG/ML 2 ML VIAL (100 MCG VIAL) IV SLOW PU ONE (17:47)
[2016-04-13] MEDS ORDERED: oxyCODONE TAB* 5 MG TAB PO ONE (17:48)
[2016-04-13] MEDS: Temazepam CAP* 15 MG PO PRN (20:31)
[2016-04-14] MEDS: oxyCODONE/Acetamin 5/325 MG* TAB PO PRN ×3 (00:09→09:36)
[2016-04-14] MEDS: Albuterol HFA INHALER* 8 gm MDI INH PRN ×2 (05:35→12:16)
[2016-04-14 06:01] LABS: Hematocrit 34 % (35-47); Hemoglobin 11.3 g/dl (12.0-16.0); Mean Corpuscular HGB Conc 34 g/dl (31-36); Mean Corpuscular Hemoglobin 28 pg (27-31); Mean Corpuscular Volume 82 fL (80-97); Mean Platelet Volume 7 um3 (7.4-10.4); Red Blood Count 4.09 10^6/ul (4.0-5.4); Red Cell Distribution Width 13 % (10.5-15); White Blood Count 10.5 10^3/ul (3.5-10.8)
[2016-04-14] MEDS: ceFAZolin 2 GM PREMIX (*) 2 GM/50 ML BAG IVPB SCH ×2 (08:12→15:52)
[2016-04-14] MEDS: Citalopram TAB* 10 MG PO SCH (08:12)
[2016-04-14] MEDS: Heparin VIAL(*) 5000 UNITS/ML VIAL (FIVE THOUSAND) SUBCUT SCH ×2 (08:12→21:35)
[2016-04-14] MEDS: amLODIPine TAB* 5 MG PO SCH (08:14)
--- NOTE | 2016-04-14 08:19 | OP ---
DATE OF OPERATION: 04/13/16 - ROOM #410 DATE OF : 76 SURGEON: Rajesh Avery MD FOOD PRODUCTION MANAGER: HENRY Lund. An clinical medical assistant was needed for the entirety of the case to help with retraction. ANESTHESIOLOGIST: Dr. Mark Laboy ANESTHESIA: Spinal. PRE-OP DIAGNOSIS: Left foot abscess and infection with surrounding cellulitis. POST-OP DIAGNOSIS: Left foot abscess and infection with surrounding cellulitis. OPERATIVE PROCEDURE: Left foot I and D of the dorsum of the foot in between the first and second metatarsals. COMPLICATIONS: None. ESTIMATED BLOOD LOSS: Less than 20. SPECIMENS: Cultures and Gram stain were sent to pathology. Specimen was sent. INDICATIONS: Zaynab Lehman is an, unfortunate, 35-year-old female who has an addiction to opioids and heroin. She tried to inject heroin through the dorsum of her foot, in between the first and second metatarsals, and eventually developed an abscess with surrounding cellulitis. She has a 1 x 1 cm wound on the dorsum of the foot with gross pus. There is no evidence of osteomyelitis per the imaging studies. Risks and benefits of surgery versus nonoperative treatment were discussed at length. She was initially followed by my colleague, Dr. Foss, who has asked me to assist by providing her with a first washout today. Dr. Foss will be following the patient after this. Risks and benefits were discussed at length which include but are not limited to bleeding, infection, wound healing problems , need for further surgery, damage to nerves, vessels, surrounding structures, risk of DVT and worsening infection, and risk of anesthesia. She has elected to proceed with surgery. DESCRIPTION OF PROCEDURE: The patient was greeted in the preoperative area by the attending surgeon. The correct extremity was marked and consent was confirmed. The patient was then brought back to the operating suite where she underwent spinal anesthesia by the anesthesiologist, which she tolerated without difficulty. After she was completely anesthetized, the left leg was prepped and draped in the usual sterile fashion beginning with a prescrub of chlorhexidine soap and a wipe down of alcohol and a final prep of ChloraPrep. After appropriate surgical pause indicating site, side, procedure, and administration of antibiotics,a 4-cm incision encompassing the wound on the dorsum of the foot was made in a longitudinal fashion between the first and second metatarsal heads. The wound was carefully exposed. There was gross purulence that was apparent. Gentle debridement was then done. Swabs were sent for culture and Gram stain, including anaerobic and aerobic cultures. The wound was fully debrided to get good bleeding edges without any obvious purulence. The extensor tendon to the second toe was identified. At this point , the wound was copiously irrigated with gentle gravity-assisted irrigation for 9 L of sterile saline. Once this was complete, the wound bed was evaluated again and found to be without any gross purulence. The wound was then packed with Iodoform gauze. Sterile dressings were applied and she remained awake for the entirety of the procedure. She was then transferred to PACU in stable condition. POSTOPERATIVE PLAN: She is allowed to weight bear through her heel. She will continue her antibiotics as per the I.D. recommendations. Dr. Foss will follow with her tomorrow, and she will remain on DVT prophylaxis per the medicine rec. [id number]/CPS #: [id number] MTDD
[2016-04-14] MEDS: Ondansetron INJ* 2 MG/ML VIAL IV PRN ×2 (08:57→21:15)
[2016-04-14] MEDS: metroNIDAZOLE IV 500 MG/100ML* 500 MG/100 ML BAG IVPB SCH ×2 (08:57→21:37)
[2016-04-14] MEDS ORDERED: ALPRAZolam TAB* 0.25 MG PO PRN (11:33)
[2016-04-14] MEDS ORDERED: oxyCODONE TAB* 5 MG TAB PO ONE ×2 (11:34→13:44)
[2016-04-14] MEDS ORDERED: oxyCODONE TAB* 5 MG TAB ONE (11:39)
[2016-04-14] MEDS: Naproxen TAB* 250 MG PO PRN (11:40)
[2016-04-14] MEDS: oxyCODONE TAB* 5 MG TAB PO PRN ×3 (13:26→21:31)
[2016-04-14] MEDS ORDERED: fentaNYL* 50 MCG/ML 2 ML VIAL (100 MCG VIAL) IV SLOW PU ONE (13:44)
[2016-04-14] MEDS: Acetaminophen TAB* 325 MG PO SCH ×3 (13:59→21:33)
[2016-04-14] MEDS ORDERED: fentaNYL* 50 MCG/ML 2 ML VIAL (100 MCG VIAL) ONE (14:01)
--- NOTE | 2016-04-14 14:06 | PN ---
Subjective Date of Service: 04/14/16 Interval History: Patient seen and examined at bedside. She is very agitated and restless and states, "I have the right not to be in pain." I assisted the patient with repositioning and discussed that while the patient is experiencing pain, we needed to be cautious in how we proceed in treating her pain with her goals of staying off of heroin. The patient verbalized understanding of this. We also discussed tolerance to narcotics, as the patient has a history of heroin use ( per the patient, she mostly snorted the heroin but also admits to injection). She agrees with the plan to avoid IV morphine and hydromorphone if possible, but then asked if she could get a one time administration of something in her IV to take the edge off of her pain. She states that this helped yesterday post- operatively. She denies any fever/chills, CP, SOB, abd pain. She does report having nausea previously. Family History: Unchanged from Admission Social History: Unchanged from Admission Past Medical History: Unchanged from Admission Objective Active Medications: Acetaminophen (Tylenol Tab*) 975 mg PO Q8H [facility] Last Admin: 04/14/16 13:59 Dose: Not Given Albuterol (Ventolin 2.5 Mg/3 Ml Neb.Connie*) 2.5 mg INH Q4H PRN PRN Reason: SOB/WHEEZING Albuterol (Ventolin Hfa Inhaler*) 2 puff INH Q4H PRN PRN Reason: SOB/WHEEZING Last Admin: 04/14/16 12:16 Dose: 2 puff Amlodipine Besylate (Norvasc Tab*) 10 mg PO DAILY [facility] Last Admin: 04/14/16 08:14 Dose: 10 mg Citalopram Hydrobromide (Celexa Tab*) 10 mg PO DAILY [facility] Last Admin: 04/14/16 08:12 Dose: 10 mg Diphenhydramine HCl (Benadryl Po*) 25 mg PO TID PRN PRN Reason: ITCHING Last Admin: 04/13/16 00:31 Dose: 25 mg Diphenoxylate HCl/Atropine (Lomotil Tab*) 1 tab PO BID PRN PRN Reason: DIARRHEA Heparin Sodium (Porcine) (Heparin Vial(*)) 5,000 units SUBCUT Q12HR [facility] Last Admin: 04/14/16 08:12 Dose: 5,000 units Hydralazine HCl (Apresoline Iv*) 5 mg IV SLOW PU Q6H PRN PRN Reason: BLOOD PRESSURE Cefazolin Sodium/Dextrose (Kefzol Premix(*)) 2 gm in 50 mls @ 100 mls/hr IVPB Q8H [facility] Last Admin: 04/14/16 08:12 Dose: 100 mls/hr Metronidazole/Sodium Chloride (Flagyl 500 Mg Ivpb*) 500 mg in 100 mls @ 100 mls /hr IVPB Q12H [facility] Last Admin: 04/14/16 08:57 Dose: 100 mls/hr Naproxen (Naprosyn Tab*) 500 mg PO Q12H PRN PRN Reason: PAIN Last Admin: 04/14/16 11:40 Dose: 500 mg Ondansetron HCl (Zofran Inj*) 4 mg IV Q6H PRN PRN Reason: NAUSEA Last Admin: 04/14/16 08:57 Dose: 4 mg Oxycodone HCl (Roxycodone Tab*) 10 mg PO Q4H PRN PRN Reason: PAIN - MILD TO MODERATE Last Admin: 04/14/16 13:26 Dose: 10 mg Oxycodone HCl (Roxycodone Tab*) 15 mg PO Q4H PRN PRN Reason: PAIN - MODERATE TO SEVERE Temazepam (Restoril Cap*) 15 mg PO BEDTIME PRN PRN Reason: INSOMNIA Last Admin: 04/13/16 20:31 Dose: 15 mg Vital Signs 04/13/16 04/13/16 04/13/16 14:15 14:30 14:40 Temperature Pulse Rate 93 91 Respiratory 16 16 16 Rate Blood Pressure 147/85 149/87 (mmHg) O2 Sat by Pulse 98 97 Oximetry 04/13/16 04/13/16 04/13/16 14:55 16:03 16:40 Temperature 98.6 F 99.0 F Pulse Rate 88 101 Respiratory 20 16 18 Rate Blood Pressure 170/107 174/99 (mmHg) O2 Sat by Pulse 98 100 Oximetry 04/13/16 04/13/16 04/13/16 18:12 18:15 19:15 Temperature 98.2 F Pulse Rate 98 Respiratory 16 18 17 Rate Blood Pressure 149/99 (mmHg) O2 Sat by Pulse 100 Oximetry 04/13/16 04/13/16 04/13/16 19:49 20:00 20:15 Temperature Pulse Rate Respiratory 17 16 16 Rate Blood Pressure (mmHg) O2 Sat by Pulse Oximetry 04/13/16 04/13/16 04/14/16 20:29 21:49 00:00 Temperature 98.1 F 97.4 F Pulse Rate 83 71 Respiratory 20 16 16 Rate Blood Pressure 160/93 126/70 (mmHg) O2 Sat by Pulse 100 100 Oximetry 04/14/16 04/14/16 04/14/16 00:09 02:09 04:15 Temperature 97.2 F Pulse Rate 62 Respiratory 17 15 16 Rate Blood Pressure 137/85 (mmHg) O2 Sat by Pulse 100 Oximetry 04/14/16 04/14/16 04/14/16 05:03 05:33 08:28 Temperature 97.8 F Pulse Rate 70 77 Respiratory 16 17 18 Rate Blood Pressure 150/75 (mmHg) O2 Sat by Pulse 100 100 Oximetry 04/14/16 04/14/16 04/14/16 09:06 09:36 11:40 Temperature Pulse Rate Respiratory 18 18 18 Rate Blood Pressure (mmHg) O2 Sat by Pulse Oximetry 04/14/16 13:26 Temperature Pulse Rate Respiratory 18 Rate Blood Pressure (mmHg) O2 Sat by Pulse Oximetry Oxygen Devices in Use Now: None Appearance: Young female patient, sitting up in bed, appears agitated, uncomfortable Eyes: PERRLA Ears/Nose/Mouth/Throat: Clear Oropharnyx, Mucous Membranes Moist Neck: NL Appearance and Movements; NL JVP Respiratory: Symmetrical Chest Expansion and Respiratory Effort, Clear to Auscultation Cardiovascular: NL Sounds; No Murmurs; No JVD, RRR Abdominal: NL Sounds; No Tenderness; No Distention Extremities: - - LLE dressing in place - c/d/i. Brisk cap refill to BLE with good distal movement/sensation Skin: No Rash or Ulcers Neurological: Alert and Oriented x 3 Lines/Tubes/Other Access: Clean, Dry and Intact Peripheral IV Nutrition: Taking PO's Result Diagrams: 04/14/16 05:15 04/13/16 05:10 Additional Lab and Data: Lab Results 04/11/16 04/11/16 04/11/16 Range/Units 15:30 16:05 16:05 WBC 13.1 H (3.5-10.8) 10^3/ul RBC 4.23 (4.0-5.4) 10^6/ul Hgb 11.7 L (12.0-16.0) g/dl Hct 35 (35-47) % MCV 82 (80-97) fL MCH 28 (27-31) pg MCHC 34 (31-36) g/dl RDW 13 (10.5-15) % Plt Count 578 H (150-450) 10^3/ul MPV 7 L (7.4-10.4) um3 Neut % (Auto) 71.0 (38-83) % Lymph % (Auto) 20.1 L (25-47) % [place] % (Auto) 6.2 (1-9) % Eos % (Auto) 1.5 (0-6) % Baso % (Auto) 1.2 (0-2) % Absolute Neuts (auto) 9.3 H (1.5-7.7) 10^3/ul Absolute Lymphs (auto) 2.6 (1.0-4.8) 10^3/ul Absolute Monos (auto) 0.8 (0-0.8) 10^3/ul Absolute Eos (auto) 0.2 (0-0.6) 10^3/ul Absolute Basos (auto) 0.2 (0-0.2) 10^3/ul Absolute Nucleated RBC 0 10^3/ul Nucleated RBC % 0 Sodium 136 (133-145) mmol/L Potassium 3.7 (3.5-5.0) mmol/L Chloride 99 L (101-111) mmol/L Carbon Dioxide 29 (22-32) mmol/L Anion Gap 8 (2-11) mmol/L BUN 8 (6-24) mg/dL Creatinine 0.74 (0.51-0.95) mg/dL Est GFR ( Amer) 113.6 (>60) Est GFR (Non-Af Amer) 88.3 (>60) BUN/Creatinine Ratio 10.8 (8-20) Glucose 112 H (70-100) mg/dL Lactic Acid (0.5-2.0) mmol/L Calcium 10.3 (8.6-10.3) mg/dL Total Bilirubin 0.30 (0.2-1.0) mg/dL AST 10 L (13-39) U/L ALT 13 (7-52) U/L Alkaline Phosphatase 94 (34-104) U/L C-Reactive Protein 77.33 H (< 5.00) mg/L Total Protein 8.9 (6.4-8.9) g/dL Albumin 4.0 (3.2-5.2) g/dL Globulin 4.9 H (2-4) g/dL Albumin/Globulin Ratio 0.8 L (1-3) Urine Color Yellow Urine Appearance Cloudy Urine pH 6.0 (5-9) Ur Specific [place] 1.019 (1.010-1.030) Urine Protein Negative (Negative) Urine Ketones Negative (Negative) Urine Blood 1+ H (Negative) Urine Nitrate Negative (Negative) Urine Bilirubin Negative (Negative) Urine Urobilinogen Negative (Negative) Ur Leukocyte Esterase Negative (Negative) Urine WBC (Auto) Trace(0-5/hpf) (Absent) Urine RBC (Auto) 1+(3-5/hpf) H (Absent) Ur Squamous Epith Cells Present H (Absent) Urine Bacteria Absent (Absent) Urine Glucose Negative (Negative) 04/11/16 Range/Units 16:05 WBC (3.5-10.8) 10^3/ul RBC (4.0-5.4) 10^6/ul Hgb (12.0-16.0) g/dl Hct (35-47) % MCV (80-97) fL MCH (27-31) pg MCHC (31-36) g/dl RDW (10.5-15) % Plt Count (150-450) 10^3/ul MPV (7.4-10.4) um3 Neut % (Auto) (38-83) % Lymph % (Auto) (25-47) % [place] % (Auto) (1-9) % Eos % (Auto) (0-6) % Baso % (Auto) (0-2) % Absolute Neuts (auto) (1.5-7.7) 10^3/ul Absolute Lymphs (auto) (1.0-4.8) 10^3/ul Absolute Monos (auto) (0-0.8) 10^3/ul Absolute Eos (auto) (0-0.6) 10^3/ul Absolute Basos (auto) (0-0.2) 10^3/ul Absolute Nucleated RBC 10^3/ul Nucleated RBC % Sodium (133-145) mmol/L Potassium (3.5-5.0) mmol/L Chloride (101-111) mmol/L Carbon Dioxide (22-32) mmol/L Anion Gap (2-11) mmol/L BUN (6-24) mg/dL Creatinine (0.51-0.95) mg/dL Est GFR ( Amer) (>60) Est GFR (Non-Af Amer) (>60) BUN/Creatinine Ratio (8-20) Glucose (70-100) mg/dL Lactic Acid 1.0 (0.5-2.0) mmol/L Calcium (8.6-10.3) mg/dL Total Bilirubin (0.2-1.0) mg/dL AST (13-39) U/L ALT (7-52) U/L Alkaline Phosphatase (34-104) U/L C-Reactive Protein (< 5.00) mg/L Total Protein (6.4-8.9) g/dL Albumin (3.2-5.2) g/dL Globulin (2-4) g/dL Albumin/Globulin Ratio (1-3) Urine Color Urine Appearance Urine pH (5-9) Ur Specific [place] (1.010-1.030) Urine Protein (Negative) Urine Ketones (Negative) Urine Blood (Negative) Urine Nitrate (Negative) Urine Bilirubin (Negative) Urine Urobilinogen (Negative) Ur Leukocyte Esterase (Negative) Urine WBC (Auto) (Absent) Urine RBC (Auto) (Absent) Ur Squamous Epith Cells (Absent) Urine Bacteria (Absent) Urine Glucose (Negative) Microbiology and Other Data: Microbiology 04/11/16 20:35 Skin and Soft Tissue MRSA/MSSA (PCR - Final Foot Left Mrsa Negative S.aureus Positive Gram Stain - Final Assess/Plan/Problems-Billing Assessment: Ms. Lehman is a 35 yo female with a PMH of heroin abuse, anxiety, asthma, HTN and noncompliance who presented to the ED on 04/11 with c/o of left foot swelling, pain and redness. - Patient Problems (1) Cellulitis Code(s): L03.90 - CELLULITIS, UNSPECIFIED Comment: S/P I&D on 04/13, pain increased. Increase oxycodone dose, will try to avoid IV narcotics when possible, given heroin use history Afebrile, no leukocytosis. Wound growing Staph. Appreciate ID consult. Continue Ancef and Flagyl. Appreciate ortho consult. Patient weight bearing on heel only MRI showing no noted foreign object. No abscess noted. Daily dressing changes; wound care also consulted (2) Anxiety Code(s): F41.9 - ANXIETY DISORDER, UNSPECIFIED Comment: Continue supportive care. Temazepam at bedtime. Pt reports she take Xanax at home, but it sound like she doesn't currently have a prescription. Recommended for patient to follow up with primary as well as counseling services. (3) Asthma Code(s): J45.909 - UNSPECIFIED ASTHMA, UNCOMPLICATED Comment: Controlled. Continue albuterol prn. (4) Hypertension Code(s): I10 - ESSENTIAL (PRIMARY) HYPERTENSION Comment: Normotensive to hypertensive. Suspect pain and anxiety is causing BP to rise. Continue amlodipine. PRN hydralazine available. Patient previously non-compliant at home with medication. (5) Heroin abuse Code(s): F11.10 - OPIOID ABUSE, UNCOMPLICATED Comment: Pt reports she just weaned herself, and the last time she used was 04/10. She reports she just started going to [facility]. Social work to consult. (6) DVT prophylaxis Comment: HSQ (7) Full code status Code(s): Z78.9 - OTHER SPECIFIED HEALTH STATUS Status and Disposition: Inpatient. Anticipate LOS >2 days for IV abx treatment.
--- NOTE | 2016-04-14 15:09 | PN ---
Progress Note - Progress Note SOAP: Subjective: DOS: 04/14/16 CC: foot infection HPI: 35 year old woman with hx club feet now with left foot abscess and wound infection at previous injection site. FB on Xray not seen on CT or MRI. Had I& D 04/13, tolerated it well. Ongoing foot pain, does not radiate, pain medicine helps. Objective: [] Vital Signs Temp 36.6 C 04/14/16 08:28 Pulse 77 04/14/16 08:28 Resp 18 04/14/16 14:03 BP 150/75 04/14/16 08:28 Pulse Ox 100 04/14/16 08:28 Intake & Output 04/13/16 04/14/16 04/14/16 18:59 06:59 18:59 Intake Total 746 310 690 Output Total 300 1450 1200 Balance 446 -1140 -510 Intake: IV Fluids 400 LR 400 IVPB 150 ABX - CEFAZOLIN 50 ABX - FLAGYL 100 Oral 346 310 540 Output: Urine 300 1450 1200 Other: Estimated Void Medium Medium Date of Last Bowel 04/14/16 Movement # Bowel Movements 0 1 # Voids 1 1 Gen:Awake, NAD Neuro: alert, Ox3, sensation intact to light touch BL LE HEENT:PERRL, MMM Neck:supple Heart:RRR no murmur Lungs:CTA BL Abd:+BS NTND soft Skin: no rash MSK: Left foot wrapped Sodium 137 mmol/L (133-145) 04/13/16 05:10 Potassium 3.9 mmol/L (3.5-5.0) 04/13/16 05:10 BUN 11 mg/dL (6-24) 04/13/16 05:10 Creatinine 0.81 mg/dL (0.51-0.95) 04/13/16 05:10 Hemoglobin A1c 5.3 % (Less than 6.0) 04/11/16 16:05 Calcium 9.4 mg/dL (8.6-10.3) 04/13/16 05:10 AST 10 U/L (13-39) L 04/11/16 16:05 ALT 13 U/L (7-52) 04/11/16 16:05 Assessment: 1. left foot cellulitis, infective myositis, abscess due to MSSA, s/p I&D 2. 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 elevated CRP Plan: 1. Continue ancef 2 gm IV Q8hrs and flagyl 500 mg IV Q12hrs; re-assess progress Sunday before changing to PO antibiotics.
--- NOTE | 2016-04-14 15:35 | PN ---
Progress Note - Progress Note SOAP: Subjective: Pt has a washout with Dr. Avery 04/13. Pt states she is dong ok. She states she has some pain in her foot. She reports a throbbing when she is walking. She has been OOB with assistance. No fever,chills. Objective: PE: General- 35 y/o WDWN F in NAD, resting comfortably in bed LLE: dressing c/d/i, +f/e of the knee, calf soft nontender, sensation intact to light touch distally Vital Signs Temp Pulse Resp BP Pulse Ox 97.8 F 77 18 150/75 100 04/14/16 08:28 04/14/16 08:28 04/14/16 14:03 04/14/16 08:28 04/14/16 08:28 Laboratory Results - last 24 hr 04/14/16 05:15 WBC 10.5 RBC 4.09 Hgb 11.3 L Hct 34 L MCV 82 MCH 28 MCHC 34 RDW 13 Plt Count 463 H MPV 7 L Neut % (Auto) 56.0 Lymph % (Auto) 32.2 [place] % (Auto) 6.8 Eos % (Auto) 3.6 Baso % (Auto) 1.4 Absolute Neuts (auto) 5.9 Absolute Lymphs (auto) 3.4 Absolute Monos (auto) 0.7 Absolute Eos (auto) 0.4 Absolute Basos (auto) 0.1 Absolute Nucleated RBC 0 Nucleated RBC % 0 Assessment: POD #1 Left food I&D dorsum of foot between 1st and 2nd MT Plan: Heel touch weight bearing with use of crutches or walker Cont pain management Cont DVT prophylaxis Abx per ID Awaiting wound culture final results Hospitalists co-managing
[2016-04-14] MEDS: Temazepam CAP* 15 MG PO PRN (21:34)
[2016-04-15] MEDS: ceFAZolin 2 GM PREMIX (*) 2 GM/50 ML BAG IVPB SCH ×4 (00:02→23:44)
[2016-04-15] MEDS: Naproxen TAB* 250 MG PO PRN ×2 (00:21→09:53)
[2016-04-15] MEDS: oxyCODONE TAB* 5 MG TAB PO PRN ×6 (02:12→22:28)
[2016-04-15] MEDS: Albuterol HFA INHALER* 8 gm MDI INH PRN ×3 (06:35→20:41)
[2016-04-15] MEDS: Acetaminophen TAB* 325 MG PO SCH ×3 (06:38→22:07)
[2016-04-15] MEDS: metroNIDAZOLE IV 500 MG/100ML* 500 MG/100 ML BAG IVPB SCH ×2 (08:30→22:07)
[2016-04-15] MEDS: amLODIPine TAB* 5 MG PO SCH (09:45)
[2016-04-15] MEDS: Ondansetron INJ* 2 MG/ML VIAL IV PRN (09:45)
--- NOTE | 2016-04-15 10:44 | PN ---
Progress Note - Progress Note SOAP: Subjective: POD #2 Left foot I&D. Still c/o pain despite medication. Denies f/c. Objective: Vital Signs: Temp Pulse Resp BP Pulse Ox 98.7 F 101 24 166/81 100 04/14/16 23:38 04/15/16 02:11 04/15/16 10:30 04/15/16 02:11 04/15/16 02:11 Gen: A & Ox3, NAD at rest LLE: Wound clean, mild s/s d/c. No purulence. Dimensions about 2cm x 1.5cm x 1.5cm deep. + surrounding edema. N/V intact Assessment: POD #2 Left foot I&D Plan: Betadine WTD dressing applied Will re-eval tomorrow Continue IV abx, pain medication
[2016-04-15] MEDS ORDERED: Morphine INJ* 4 MG/ML 1 ML CARPUJECT IV ONE (11:12)
[2016-04-15] MEDS: Citalopram TAB* 10 MG PO SCH (12:11)
[2016-04-15] MEDS: Lactobacillus Acidophilu (GG)* 1 CAP CAP PO SCH ×2 (12:11→20:28)
[2016-04-15] MEDS: Enoxaparin(*) 40 MG/0.4 ML SYR SUBCUT SCH (14:00)
--- NOTE | 2016-04-15 15:06 | PN ---
Subjective Date of Service: 04/15/16 Interval History: HOSPITALIST PROGRESS NOTE Patient seen and examined at bedside. Her major complaint is pain. On initial ED eval, she describes 10/10 throbbing pain on her foot, extending all the way up to her knee. Today is an 8/10 but just on her foot. C/o mild abdominal cramps and diarrhea started yesterday. Tolerating diet well, no N/V. Family History: Unchanged from Admission Social History: Unchanged from Admission Past Medical History: Unchanged from Admission Objective Active Medications: Acetaminophen (Tylenol Tab*) 975 mg PO Q8H [facility] Last Admin: 04/15/16 06:38 Dose: 975 mg Albuterol (Ventolin 2.5 Mg/3 Ml Neb.Connie*) 2.5 mg INH Q4H PRN PRN Reason: SOB/WHEEZING Albuterol (Ventolin Hfa Inhaler*) 2 puff INH Q4H PRN PRN Reason: SOB/WHEEZING Last Admin: 04/15/16 13:27 Dose: 2 puff Amlodipine Besylate (Norvasc Tab*) 10 mg PO DAILY [facility] Last Admin: 04/15/16 09:45 Dose: 10 mg Citalopram Hydrobromide (Celexa Tab*) 10 mg PO DAILY [facility] Last Admin: 04/15/16 12:11 Dose: 10 mg Diphenhydramine HCl (Benadryl Po*) 25 mg PO TID PRN PRN Reason: ITCHING Last Admin: 04/13/16 00:31 Dose: 25 mg Diphenoxylate HCl/Atropine (Lomotil Tab*) 1 tab PO BID PRN PRN Reason: DIARRHEA Last Admin: 04/15/16 13:26 Dose: 1 tab Enoxaparin Sodium (Lovenox(*)) 40 mg SUBCUT Q24H [facility] Hydralazine HCl (Apresoline Iv*) 5 mg IV SLOW PU Q6H PRN PRN Reason: BLOOD PRESSURE Last Admin: 04/15/16 00:21 Dose: 5 mg Cefazolin Sodium/Dextrose (Kefzol Premix(*)) 2 gm in 50 mls @ 100 mls/hr IVPB Q8H [facility] Last Admin: 04/15/16 07:56 Dose: 100 mls/hr Metronidazole/Sodium Chloride (Flagyl 500 Mg Ivpb*) 500 mg in 100 mls @ 100 mls /hr IVPB Q12H [facility] Last Admin: 04/15/16 08:30 Dose: 100 mls/hr Lactobacillus Rhamnosus (Culturelle*) 1 cap PO BID [facility] Last Admin: 04/15/16 12:11 Dose: 1 cap Naproxen (Naprosyn Tab*) 500 mg PO Q12H PRN PRN Reason: PAIN Last Admin: 04/15/16 09:53 Dose: 500 mg Ondansetron HCl (Zofran Inj*) 4 mg IV Q6H PRN PRN Reason: NAUSEA Last Admin: 04/15/16 09:45 Dose: 4 mg Oxycodone HCl (Roxycodone Tab*) 10 mg PO Q4H PRN PRN Reason: PAIN - MILD TO MODERATE Last Admin: 04/15/16 02:12 Dose: 10 mg Oxycodone HCl (Roxycodone Tab*) 15 mg PO Q4H PRN PRN Reason: PAIN - MODERATE TO SEVERE Last Admin: 04/15/16 10:30 Dose: 15 mg Temazepam (Restoril Cap*) 15 mg PO BEDTIME PRN PRN Reason: INSOMNIA Last Admin: 04/14/16 21:34 Dose: 15 mg Vital Signs 04/14/16 04/15/16 04/15/16 23:38 00:00 00:41 Temperature 98.7 F Pulse Rate 117 Respiratory 20 Rate Blood Pressure 192/99 190/105 (mmHg) O2 Sat by Pulse 100 100 Oximetry 04/15/16 04/15/16 04/15/16 02:11 02:12 06:37 Temperature Pulse Rate 101 Respiratory 16 18 15 Rate Blood Pressure 166/81 (mmHg) O2 Sat by Pulse 100 Oximetry Oxygen Devices in Use Now: None Appearance: Young lady lying in bed in NAD. Eyes: No Scleral Icterus Ears/Nose/Mouth/Throat: Mucous Membranes Moist Neck: Trachea Midline Respiratory: Symmetrical Chest Expansion and Respiratory Effort, Clear to Auscultation Cardiovascular: NL Sounds; No Murmurs; No JVD, RRR Abdominal: NL Sounds; No Tenderness; No Distention Extremities: No Edema, - - CDI to left foot. Can wiggle toes, good capilary refill, no leg edema or erythema. Neurological: Alert and Oriented x 3, NL Muscle Strength and Tone Lines/Tubes/Other Access: Clean, Dry and Intact Peripheral IV Nutrition: Taking PO's Result Diagrams: 04/14/16 05:15 04/13/16 05:10 Assess/Plan/Problems-Billing Assessment: Ms. Lehman is a 35 yo female with a PMH of heroin abuse, anxiety, asthma, HTN and noncompliance who presented to the ED on 04/11 with c/o of left foot swelling, pain and redness. - Patient Problems (1) Cellulitis Comment: - Left foot abscess s/p I&D 04/13, with myositis and cellulitis. - ID input appreciated - continue Cefazolin and metronidazole. - Cultures growing MSSA. - Continue pain management. - Appreciate ortho follow up - may need further wash out in the OR on 04/17. Can weight bear on heel only. (2) Diarrhea Comment: - No signs of C. diff at this time - abdominal exam is benign, no explosive diarrhea, only a couple BMs today. - Start probiotic. (3) Anxiety Comment: - Continue supportive care. Temazepam at bedtime. (4) Asthma Comment: - Controlled. Continue albuterol prn. (5) Hypertension Comment: - Uncontrolled. - Continue Amlodipine and add Clonidine as it will help with cravings. (6) Heroin abuse Comment: - Probably going through mild withdrawal as she has mild tachycardia, HTN, diarrhea. She's getting Oxycodone for pain and this is likely precenting a full blown episode of withdrawal. - She already [facility]. (7) DVT prophylaxis Comment: - Lovenox. (8) Full code status Status and Disposition: Inpatient for IV abx treatment. May need to return to the OR next week.
[2016-04-15] MEDS: cloNIDine TAB* 0.1 MG PO SCH ×2 (19:14→22:06)
[2016-04-15] MEDS: Heparin VIAL(*) 5000 UNITS/ML VIAL (FIVE THOUSAND) SUBCUT SCH (19:15)
[2016-04-15] MEDS: Temazepam CAP* 15 MG PO PRN (22:08)
[2016-04-16] MEDS: oxyCODONE TAB* 5 MG TAB PO PRN ×5 (04:12→21:22)
[2016-04-16] MEDS: Acetaminophen TAB* 325 MG PO SCH (04:14)
[2016-04-16] MEDS: Albuterol HFA INHALER* 8 gm MDI INH PRN ×2 (04:36→11:31)
[2016-04-16] MEDS: Naproxen TAB* 250 MG PO PRN (05:41)
[2016-04-16] MEDS: ceFAZolin 2 GM PREMIX (*) 2 GM/50 ML BAG IVPB SCH ×2 (07:41→17:02)
[2016-04-16 07:43] LABS: Hematocrit 36 % (35-47); Mean Corpuscular HGB Conc 34 g/dl (31-36); Mean Corpuscular Hemoglobin 28 pg (27-31); Mean Corpuscular Volume 83 fL (80-97); Mean Platelet Volume 7 um3 (7.4-10.4); Red Blood Count 4.31 10^6/ul (4.0-5.4); Red Cell Distribution Width 13 % (10.5-15); White Blood Count 10.3 10^3/ul (3.5-10.8)
[2016-04-16] MEDS: amLODIPine TAB* 5 MG PO SCH (07:43)
[2016-04-16] MEDS: cloNIDine TAB* 0.1 MG PO SCH ×3 (07:43→21:22)
[2016-04-16] MEDS: Citalopram TAB* 10 MG PO SCH (07:43)
[2016-04-16] MEDS: Lactobacillus Acidophilu (GG)* 1 CAP CAP PO SCH ×2 (07:43→21:25)
[2016-04-16 07:55] LABS: BUN/Creatinine Ratio 22.9 (8-20); C Reactive Protein 5.45 mg/L (< 5.00); Calcium 9.9 mg/dL (8.6-10.3); EGFR African American 121.1 (>60); EGFR Non-African American 94.2 (>60); Potassium 4.2 mmol/L (3.5-5.0)
[2016-04-16] MEDS ORDERED: Spiriva Inhaler DEVICE* 1 EACH DEVICE INH ONE (09:00)
[2016-04-16] MEDS: Mometasone/Formoter 100/5 MDI INH SCH ×2 (09:11→19:13)
[2016-04-16] MEDS: Tiotropium CAP.INH* CAP.INH/18 MCG (USE ORDER SET !) INH SCH (09:13)
[2016-04-16] MEDS: Morphine INJ* 4 MG/ML 1 ML CARPUJECT IV PRN (10:46)
--- NOTE | 2016-04-16 11:12 | PN ---
Progress Note - Progress Note SOAP: Subjective: POD #3 Left foot I&D. States that she is still having pain but morphine and oxycodone helping. Denies CP/SOB. Objective: Vital Signs: Temp Pulse Resp BP Pulse Ox 97.6 F 70 16 133/72 100 / 07:27 04/16/16 07:27 04/16/16 10:46 04/16/16 07:27 04/16/16 07:27 Gen: A & Ox3, NAD at rest LLE: Wound with min purulent d/c, mod swelling and edema to foot. + ttp throughout foot. N/V intact Labs: Laboratory Results - last 24 hr 04/16/17 04/16/16 06:58 06:58 WBC 10.3 RBC 4.31 Hgb 12.0 Hct 36 MCV 83 MCH 28 MCHC 34 RDW 13 Plt Count 507 H MPV 7 L Neut % (Auto) 63.0 Lymph % (Auto) 26.0 [place] % (Auto) 7.2 Eos % (Auto) 2.9 Baso % (Auto) 0.9 Absolute Neuts (auto) 6.5 Absolute Lymphs (auto) 2.7 Absolute Monos (auto) 0.7 Absolute Eos (auto) 0.3 Absolute Basos (auto) 0.1 Absolute Nucleated RBC 0.01 Nucleated RBC % 0.1 Sodium 135 Potassium 4.2 Chloride 101 Carbon Dioxide 26 Anion Gap 8 BUN 16 Creatinine 0.70 Est GFR ( Amer) 121.1 Est GFR (Non-Af Amer) 94.2 BUN/Creatinine Ratio 22.9 H Glucose 92 Calcium 9.9 C-Reactive Protein 5.45 H Assessment: POD #3 Left foot I&D Plan: Will make pt NPO after midnight for possible repeat I&D tomorrow, will re-eval in the morning for final decision Cont IV abx per ID, pain regimen per Hospitalist
[2016-04-16] MEDS: Ondansetron INJ* 2 MG/ML VIAL IV PRN (11:28)
[2016-04-16] MEDS: metroNIDAZOLE IV 500 MG/100ML* 500 MG/100 ML BAG IVPB SCH ×2 (11:31→23:07)
[2016-04-16] MEDS: Enoxaparin(*) 40 MG/0.4 ML SYR SUBCUT SCH (13:21)
[2016-04-16] MEDS: PROCHLORPERAZINE INJ 5 MG/ML 2 ML VIAL IV PRN (13:50)
--- NOTE | 2016-04-16 15:24 | PN ---
Subjective Date of Service: 04/16/16 Interval History: HOSPITALIST PROGRESS NOTE Patient seen and examined at bedside. She feels better today. Experienced severe pain yesterday when dressing was changed, but responded well to one dose of IV Morphine. Abdominal pain and diarrhea have subsided. Tolerating diet well with no N/V. Family History: Unchanged from Admission Social History: Unchanged from Admission Past Medical History: Unchanged from Admission Objective Active Medications: Acetaminophen (Tylenol Tab*) 650 mg PO Q6H PRN PRN Reason: Pain or fever Albuterol (Ventolin 2.5 Mg/3 Ml Neb.Connie*) 2.5 mg INH Q4H PRN PRN Reason: SOB/WHEEZING Albuterol (Ventolin Hfa Inhaler*) 2 puff INH Q4H PRN PRN Reason: SOB/WHEEZING Last Admin: 04/16/16 11:31 Dose: 2 puff Amlodipine Besylate (Norvasc Tab*) 10 mg PO DAILY [facility] Last Admin: 04/16/16 07:43 Dose: 10 mg Citalopram Hydrobromide (Celexa Tab*) 10 mg PO DAILY [facility] Last Admin: 04/16/16 07:43 Dose: 10 mg Clonidine HCl (Catapres Tab*) 0.1 mg PO TID [facility] Last Admin: 04/16/16 13:21 Dose: 0.1 mg Diphenhydramine HCl (Benadryl Po*) 25 mg PO TID PRN PRN Reason: ITCHING Last Admin: 04/13/16 00:31 Dose: 25 mg Diphenoxylate HCl/Atropine (Lomotil Tab*) 1 tab PO BID PRN PRN Reason: DIARRHEA Last Admin: 04/15/16 13:26 Dose: 1 tab Enoxaparin Sodium (Lovenox(*)) 40 mg SUBCUT Q24H [facility] Last Admin: 04/16/16 13:21 Dose: 40 mg Hydralazine HCl (Apresoline Iv*) 5 mg IV SLOW PU Q6H PRN PRN Reason: BLOOD PRESSURE Last Admin: 04/15/16 00:21 Dose: 5 mg Cefazolin Sodium/Dextrose (Kefzol Premix(*)) 2 gm in 50 mls @ 100 mls/hr IVPB Q8H [facility] Last Admin: 04/16/16 07:41 Dose: 100 mls/hr Metronidazole/Sodium Chloride (Flagyl 500 Mg Ivpb*) 500 mg in 100 mls @ 100 mls /hr IVPB Q12H [facility] Last Admin: 04/16/16 11:31 Dose: 100 mls/hr Sodium Chloride (Ns 0.9% 1000 Ml*) 1,000 mls @ 100 mls/hr IV PER RATE [facility] Lactobacillus Rhamnosus (Culturelle*) 1 cap PO BID [facility] Last Admin: 04/16/16 07:43 Dose: 1 cap Mometasone Furoate/Formoterol Fumar (Dulera 100/5 Mdi*) 2 puff INH BID [facility] Last Admin: 04/16/16 09:11 Dose: 2 puff Morphine Sulfate (Morphine Inj (Syringe)*) 4 mg IV DAILY PRN PRN Reason: 30 min. before dressing change Last Admin: 04/16/16 10:46 Dose: 4 mg Naproxen (Naprosyn Tab*) 500 mg PO Q12H PRN PRN Reason: PAIN Last Admin: 04/16/16 05:41 Dose: 500 mg Ondansetron HCl (Zofran Inj*) 4 mg IV Q6H PRN PRN Reason: NAUSEA Last Admin: 04/16/16 11:28 Dose: 4 mg Oxycodone HCl (Roxycodone Tab*) 10 mg PO Q4H PRN PRN Reason: PAIN - MILD TO MODERATE Last Admin: 04/16/16 13:18 Dose: 10 mg Oxycodone HCl (Roxycodone Tab*) 15 mg PO Q4H PRN PRN Reason: PAIN - MODERATE TO SEVERE Last Admin: 04/16/16 08:49 Dose: 15 mg Prochlorperazine Edisylate (Compazine Inj*) 5 mg IV Q6H PRN PRN Reason: NAUSEA/VOMITING Last Admin: 04/16/16 13:50 Dose: 5 mg Tiotropium [place] (Spiriva Cap.Inh*) 1 cap INH DAILY [facility] Last Admin: 04/16/16 09:13 Dose: 1 cap Zolpidem Tartrate (Ambien Tab*) 5 mg PO BEDTIME [facility] Vital Signs 04/16/16 04/16/16 04/16/16 07:27 08:49 10:46 Temperature 97.6 F Pulse Rate 70 Respiratory 18 12 16 Rate Blood Pressure 133/72 (mmHg) O2 Sat by Pulse 100 Oximetry 04/16/16 04/16/16 04/16/16 11:46 13:18 13:25 Temperature Pulse Rate 87 Respiratory 16 14 Rate Blood Pressure 129/78 (mmHg) O2 Sat by Pulse 100 Oximetry Oxygen Devices in Use Now: None Appearance: Pleasant lady lying in bed in NAD. Eyes: No Scleral Icterus Ears/Nose/Mouth/Throat: Mucous Membranes Moist Neck: Trachea Midline Respiratory: Symmetrical Chest Expansion and Respiratory Effort, Clear to Auscultation Cardiovascular: NL Sounds; No Murmurs; No JVD, RRR Abdominal: NL Sounds; No Tenderness; No Distention Extremities: - - CDI to left foot. Neurological: Alert and Oriented x 3, NL Muscle Strength and Tone Lines/Tubes/Other Access: Clean, Dry and Intact Peripheral IV Nutrition: Taking PO's Result Diagrams: 04/16/16 06:58 04/16/16 06:58 Assess/Plan/Problems-Billing Assessment: Ms. Lehman is a 35 yo female with a PMH of heroin abuse, anxiety, asthma, HTN and noncompliance who presented to the ED on 04/11 with c/o of left foot swelling, pain and redness. - Patient Problems (1) Cellulitis Comment: - Left foot abscess s/p I&D 04/13, with myositis and cellulitis. - ID input appreciated - continue Cefazolin and metronidazole. - Cultures growing MSSA. - Continue pain management. - Appreciate ortho follow up - may need further wash out in the OR on 04/17. Can weight bear on heel only. (2) Diarrhea Comment: - No signs of C. diff at this time. - Continue probiotic. (3) Anxiety Comment: - Continue supportive care. (4) Asthma Comment: - Controlled. Continue albuterol prn. (5) Hypertension Comment: - Better controlled. - Continue Amlodipine and Clonidine. (6) Heroin abuse Comment: - Probably going through mild withdrawal as she has mild tachycardia, HTN, diarrhea. She's getting Oxycodone for pain and this is likely preventing a full blown episode of withdrawal. - She already has an [facility] on [facility]. (7) DVT prophylaxis Comment: - Lovenox. (8) Full code status Status and Disposition: Inpatient for IV abx treatment. May need to return to the OR next week.
[2016-04-16] MEDS ORDERED: Morphine INJ* 2 MG/ML 1 ML CARPUJECT IV ONE (15:29)
[2016-04-16] MEDS: Diazepam TAB(*) 10 MG PO PRN ×2 (15:40→23:40)
[2016-04-16] MEDS: Zolpidem TAB* 5 MG PO SCH (23:07)
[2016-04-16] MEDS ORDERED: NS 0.9% 1000 ML* 1,000 ML IV SCH (23:59)
[2016-04-17] MEDS: ceFAZolin 2 GM PREMIX (*) 2 GM/50 ML BAG IVPB SCH ×4 (00:34→23:51)
[2016-04-17] MEDS: oxyCODONE TAB* 5 MG TAB PO PRN ×5 (06:51→21:51)
[2016-04-17] MEDS: Lactobacillus Acidophilu (GG)* 1 CAP CAP PO SCH ×2 (07:33→21:44)
[2016-04-17] MEDS: Citalopram TAB* 10 MG PO SCH (07:42)
[2016-04-17] MEDS: amLODIPine TAB* 5 MG PO SCH (07:42)
[2016-04-17] MEDS: cloNIDine TAB* 0.1 MG PO SCH ×3 (07:42→21:44)
[2016-04-17] MEDS: Diazepam TAB(*) 10 MG PO PRN ×3 (07:43→23:52)
[2016-04-17] MEDS: Mometasone/Formoter 100/5 MDI INH SCH ×2 (08:27→20:31)
[2016-04-17] MEDS: Tiotropium CAP.INH* CAP.INH/18 MCG (USE ORDER SET !) INH SCH (08:27)
--- NOTE | 2016-04-17 09:23 | PN ---
Progress Note - Progress Note SOAP: Subjective: DOS: 04/17/16 CC: foot infection HPI: 35 year old woman with hx club feet now with left foot abscess and wound infection at previous injection site. Had I&D 04/13, tolerated it well. Pain in foot, distal foot, able to bear weight on heel. No drainage, swelling is decreased. No fever, rash, or diarrhea. Objective: [] Vital Signs Temp 36.4 C 04/17/16 07:06 Pulse 65 04/17/16 08:30 Resp 14 04/17/16 08:30 BP 134/78 04/17/16 07:06 Pulse Ox 99 04/17/16 08:30 Intake & Output 04/16/16 04/17/16 04/17/16 18:59 06:59 18:59 Intake Total 3007 2381 Balance 3007 2381 Intake: IV Fluids 47 409 ABX - CEFAZOLIN 47 NS (0.9%) 409 IVPB 180 172 ABX - CEFAZOLIN 61 ABX - FLAGYL 111 NS (0.9%) 180 Oral 2780 1800 Other: Estimated Void Medium # Bowel Movements 3 0 Estimated Stool Amount Medium # Voids 4 4 Gen:Awake, NAD Neuro: alert, Ox3, sensation intact to light touch BL LE HEENT:PERRL, MMM Neck:supple Heart:RRR no murmur Lungs:CTA BL Abd:+BS NTND soft Skin: no rash MSK: Left foot wrapped Sodium 135 mmol/L (133-145) 04/16/16 06:58 Potassium 4.2 mmol/L (3.5-5.0) 04/16/16 06:58 BUN 16 mg/dL (6-24) 04/16/16 06:58 Creatinine 0.70 mg/dL (0.51-0.95) 04/16/16 06:58 Hemoglobin A1c 5.3 % (Less than 6.0) 04/11/16 16:05 Calcium 9.9 mg/dL (8.6-10.3) 04/16/16 06:58 AST 10 U/L (13-39) L 04/11/16 16:05 ALT 13 U/L (7-52) 04/11/16 16:05 Assessment: 1. left foot cellulitis, infective myositis, abscess due to MSSA, s/p I&D 2. 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 elevated CRP Plan: 1. Continue ancef 2 gm IV Q8hrs and flagyl 500 mg IV Q12hrs; possible second I& D today. Can use keflex 500 mg po tid x14 days for discharge as long as continuing to improve.
[2016-04-17] MEDS: metroNIDAZOLE IV 500 MG/100ML* 500 MG/100 ML BAG IVPB SCH ×2 (09:38→21:51)
[2016-04-17] MEDS: PROCHLORPERAZINE INJ 5 MG/ML 2 ML VIAL IV PRN (09:44)
[2016-04-17] MEDS: Naproxen TAB* 250 MG PO PRN (11:24)
[2016-04-17] MEDS ORDERED: Diazepam SYRINGE* 5 MG/ML 2 ML SYRINGE (10 MG total) ONE (11:55)
[2016-04-17] MEDS: Morphine INJ* 4 MG/ML 1 ML CARPUJECT IV PRN (12:03)
[2016-04-17] MEDS ORDERED: Diazepam SYRINGE* 5 MG/ML 2 ML SYRINGE (10 MG total) IV ONE (12:09)
[2016-04-17] MEDS: Enoxaparin(*) 40 MG/0.4 ML SYR SUBCUT SCH (15:02)
--- NOTE | 2016-04-17 15:49 | PN ---
Subjective Date of Service: 04/17/16 Interval History: HOSPITALIST PROGRESS NOTE Patient seen and examined at bedside. Her major complaint today is back pain and spasms. She was extremely anxious when I evaluated her, but responded well to Valium. Tolerated dressing change well. Family History: Unchanged from Admission Social History: Unchanged from Admission Past Medical History: Unchanged from Admission Objective Active Medications: Acetaminophen (Tylenol Tab*) 650 mg PO Q6H PRN PRN Reason: Pain or fever Albuterol (Ventolin 2.5 Mg/3 Ml Neb.Connie*) 2.5 mg INH Q4H PRN PRN Reason: SOB/WHEEZING Albuterol (Ventolin Hfa Inhaler*) 2 puff INH Q4H PRN PRN Reason: SOB/WHEEZING Last Admin: 04/16/16 11:31 Dose: 2 puff Amlodipine Besylate (Norvasc Tab*) 10 mg PO DAILY [facility] Last Admin: 04/17/16 07:42 Dose: 10 mg Citalopram Hydrobromide (Celexa Tab*) 10 mg PO DAILY [facility] Last Admin: 04/17/16 07:42 Dose: 10 mg Clonidine HCl (Catapres Tab*) 0.1 mg PO TID [facility] Last Admin: 04/17/16 15:02 Dose: 0.1 mg Diazepam (Valium Tab(*)) 10 mg PO Q8H PRN PRN Reason: SPASMS Last Admin: 04/17/16 15:26 Dose: 10 mg Diphenhydramine HCl (Benadryl Po*) 25 mg PO TID PRN PRN Reason: ITCHING Last Admin: 04/13/16 00:31 Dose: 25 mg Diphenoxylate HCl/Atropine (Lomotil Tab*) 1 tab PO BID PRN PRN Reason: DIARRHEA Last Admin: 04/15/16 13:26 Dose: 1 tab Enoxaparin Sodium (Lovenox(*)) 40 mg SUBCUT Q24H [facility] Last Admin: 04/17/16 15:02 Dose: 40 mg Hydralazine HCl (Apresoline Iv*) 5 mg IV SLOW PU Q6H PRN PRN Reason: BLOOD PRESSURE Last Admin: 04/15/16 00:21 Dose: 5 mg Cefazolin Sodium/Dextrose (Kefzol Premix(*)) 2 gm in 50 mls @ 100 mls/hr IVPB Q8H [facility] Last Admin: 04/17/16 07:43 Dose: 100 mls/hr Metronidazole/Sodium Chloride (Flagyl 500 Mg Ivpb*) 500 mg in 100 mls @ 100 mls /hr IVPB Q12H [facility] Last Admin: 04/17/16 09:38 Dose: 100 mls/hr Sodium Chloride (Ns 0.9% 1000 Ml*) 1,000 mls @ 100 mls/hr IV PER RATE [facility] Last Admin: 04/17/16 01:59 Dose: 100 mls/hr Lactobacillus Rhamnosus (Culturelle*) 1 cap PO BID [facility] Last Admin: 04/17/16 07:33 Dose: Not Given Mometasone Furoate/Formoterol Fumar (Dulera 100/5 Mdi*) 2 puff INH BID [facility] Last Admin: 04/17/16 08:27 Dose: 2 puff Morphine Sulfate (Morphine Inj (Syringe)*) 4 mg IV DAILY PRN PRN Reason: 30 min. before dressing change Last Admin: 04/17/16 12:03 Dose: 4 mg Naproxen (Naprosyn Tab*) 500 mg PO Q12H PRN PRN Reason: PAIN Last Admin: 04/17/16 11:24 Dose: 500 mg Ondansetron HCl (Zofran Inj*) 4 mg IV Q6H PRN PRN Reason: NAUSEA Last Admin: 04/16/16 11:28 Dose: 4 mg Oxycodone HCl (Roxycodone Tab*) 10 mg PO Q4H PRN PRN Reason: PAIN - MILD TO MODERATE Last Admin: 04/16/16 17:20 Dose: 10 mg Oxycodone HCl (Roxycodone Tab*) 15 mg PO Q4H PRN PRN Reason: PAIN - MODERATE TO SEVERE Last Admin: 04/17/16 15:01 Dose: 15 mg Prochlorperazine Edisylate (Compazine Inj*) 5 mg IV Q6H PRN PRN Reason: NAUSEA/VOMITING Last Admin: 04/17/16 09:44 Dose: 5 mg Tiotropium [place] (Spiriva Cap.Inh*) 1 cap INH DAILY [facility] Last Admin: 04/17/16 08:27 Dose: 1 cap Zolpidem Tartrate (Ambien Tab*) 5 mg PO BEDTIME [facility] Last Admin: 04/16/16 23:07 Dose: 5 mg Vital Signs 04/17/16 04/17/16 04/17/16 06:51 07:06 07:27 Temperature 97.5 F Pulse Rate 66 Respiratory 15 16 18 Rate Blood Pressure 134/78 (mmHg) O2 Sat by Pulse 100 100 Oximetry Oxygen Devices in Use Now: None Appearance: Young lady lying in bed in NAD, extremely anxious and crying. Eyes: No Scleral Icterus Ears/Nose/Mouth/Throat: Mucous Membranes Moist Neck: Trachea Midline Respiratory: Symmetrical Chest Expansion and Respiratory Effort, Clear to Auscultation Cardiovascular: RRR - Normal S1 and S2 Abdominal: NL Sounds; No Tenderness; No Distention Extremities: - - Left foot CDI Neurological: Alert and Oriented x 3, NL Muscle Strength and Tone Lines/Tubes/Other Access: Clean, Dry and Intact Peripheral IV Nutrition: Taking PO's Result Diagrams: 04/16/16 06:58 04/16/16 06:58 Assess/Plan/Problems-Billing Assessment: Ms. Lehman is a 35 yo female with a PMH of heroin abuse, anxiety, asthma, HTN and noncompliance who presented to the ED on 04/11 with c/o of left foot swelling, pain and redness. - Patient Problems (1) Cellulitis Comment: - Left foot abscess s/p I&D 04/13, with myositis and cellulitis. - ID input appreciated - continue Cefazolin and metronidazole. - Cultures growing MSSA. - Continue pain management. - Appreciate ortho follow up - just continue dressing changes, will not need to go back to OR at this point. Can weight bear on heel only. (2) Diarrhea Comment: - No signs of C. diff at this time. - Continue probiotic. - Improved. (3) Anxiety Comment: - Continue supportive care. (4) Asthma Comment: - Controlled. Continue albuterol prn. (5) Hypertension Comment: - Better controlled. - Continue Amlodipine and Clonidine. (6) Heroin abuse Comment: - Probably going through mild withdrawal as she has mild tachycardia, HTN, diarrhea. She's getting Oxycodone for pain and this is likely preventing a full blown episode of withdrawal. - She already has an appt [facility] on [facility]. (7) Muscle spasm Comment: - Continue Diazepam for spasms, but will also help with anxiety. (8) DVT prophylaxis Comment: - Lovenox. (9) Full code status Status and Disposition: Inpatient for IV abx treatment. May need to return to the OR next week.
[2016-04-17] MEDS: Zolpidem TAB* 5 MG PO SCH (21:51)
[2016-04-18] MEDS: Naproxen TAB* 250 MG PO PRN ×2 (00:04→13:40)
[2016-04-18] MEDS: oxyCODONE TAB* 5 MG TAB PO PRN ×6 (05:27→22:09)
[2016-04-18] MEDS: Ondansetron INJ* 2 MG/ML VIAL IV PRN (06:19)
[2016-04-18] MEDS: Albuterol HFA INHALER* 8 gm MDI INH PRN ×4 (06:21→20:52)
[2016-04-18] MEDS: Diazepam TAB(*) 10 MG PO PRN ×3 (07:52→23:36)
[2016-04-18] MEDS: Acetaminophen TAB* 325 MG PO PRN ×2 (09:31→17:34)
[2016-04-18] MEDS: Lactobacillus Acidophilu (GG)* 1 CAP CAP PO SCH ×2 (09:32→20:52)
[2016-04-18] MEDS: Citalopram TAB* 10 MG PO SCH (09:32)
[2016-04-18] MEDS: cloNIDine TAB* 0.1 MG PO SCH ×3 (09:35→20:52)
[2016-04-18] MEDS: amLODIPine TAB* 5 MG PO SCH (09:35)
[2016-04-18] MEDS: Mometasone/Formoter 100/5 MDI INH SCH (09:36)
[2016-04-18] MEDS: Tiotropium CAP.INH* CAP.INH/18 MCG (USE ORDER SET !) INH SCH (09:37)
[2016-04-18] MEDS: ceFAZolin 2 GM PREMIX (*) 2 GM/50 ML BAG IVPB SCH ×3 (09:43→23:43)
[2016-04-18] MEDS: metroNIDAZOLE IV 500 MG/100ML* 500 MG/100 ML BAG IVPB SCH ×2 (11:32→22:10)
[2016-04-18] MEDS: Morphine INJ* 4 MG/ML 1 ML CARPUJECT IV PRN (12:50)
--- NOTE | 2016-04-18 13:18 | PN ---
Subjective Date of Service: 04/18/16 Interval History: HOSPITALIST PROGRESS NOTE Patient seen and examined at bedside. She feels well today, in good spirits as her mother and son came to visit her. Pain and muscle spasms are much improved. I saw her walking with a steady gait from her bed to bathroom using a walker and WB on left heel. Family History: Unchanged from Admission Social History: Unchanged from Admission Past Medical History: Unchanged from Admission Objective Active Medications: Acetaminophen (Tylenol Tab*) 650 mg PO Q6H PRN PRN Reason: Pain or fever Last Admin: 04/18/16 09:31 Dose: 650 mg Albuterol (Ventolin 2.5 Mg/3 Ml Neb.Connie*) 2.5 mg INH Q4H PRN PRN Reason: SOB/WHEEZING Albuterol (Ventolin Hfa Inhaler*) 2 puff INH Q4H PRN PRN Reason: SOB/WHEEZING Last Admin: 04/18/16 10:43 Dose: 2 puff Amlodipine Besylate (Norvasc Tab*) 10 mg PO DAILY [facility] Last Admin: 04/18/16 09:35 Dose: 10 mg Citalopram Hydrobromide (Celexa Tab*) 10 mg PO DAILY [facility] Last Admin: 04/18/16 09:32 Dose: 10 mg Clonidine HCl (Catapres Tab*) 0.1 mg PO TID [facility] Last Admin: 04/18/16 09:35 Dose: 0.1 mg Diazepam (Valium Tab(*)) 10 mg PO Q8H PRN PRN Reason: SPASMS Last Admin: 04/18/16 07:52 Dose: 10 mg Diphenhydramine HCl (Benadryl Po*) 25 mg PO TID PRN PRN Reason: ITCHING Last Admin: 04/13/16 00:31 Dose: 25 mg Diphenoxylate HCl/Atropine (Lomotil Tab*) 1 tab PO BID PRN PRN Reason: DIARRHEA Last Admin: 04/15/16 13:26 Dose: 1 tab Enoxaparin Sodium (Lovenox(*)) 40 mg SUBCUT Q24H [facility] Last Admin: 04/17/16 15:02 Dose: 40 mg Hydralazine HCl (Apresoline Iv*) 5 mg IV SLOW PU Q6H PRN PRN Reason: BLOOD PRESSURE Last Admin: 04/15/16 00:21 Dose: 5 mg Cefazolin Sodium/Dextrose (Kefzol Premix(*)) 2 gm in 50 mls @ 100 mls/hr IVPB Q8H [facility] Last Admin: 04/18/16 09:43 Dose: 100 mls/hr Metronidazole/Sodium Chloride (Flagyl 500 Mg Ivpb*) 500 mg in 100 mls @ 100 mls /hr IVPB Q12H [facility] Last Admin: 04/18/16 11:32 Dose: 100 mls/hr Lactobacillus Rhamnosus (Culturelle*) 1 cap PO BID [facility] Last Admin: 04/18/16 09:32 Dose: 1 cap Mometasone Furoate/Formoterol Fumar (Dulera 100/5 Mdi*) 2 puff INH BID [facility] Last Admin: 04/18/16 09:36 Dose: Not Given Morphine Sulfate (Morphine Inj (Syringe)*) 4 mg IV DAILY PRN PRN Reason: 30 min. before dressing change Last Admin: 04/18/16 12:50 Dose: 4 mg Naproxen (Naprosyn Tab*) 500 mg PO Q12H PRN PRN Reason: PAIN Last Admin: 04/18/16 00:04 Dose: 500 mg Ondansetron HCl (Zofran Inj*) 4 mg IV Q6H PRN PRN Reason: NAUSEA Last Admin: 04/18/16 06:19 Dose: 4 mg Oxycodone HCl (Roxycodone Tab*) 10 mg PO Q4H PRN PRN Reason: PAIN - MILD TO MODERATE Last Admin: 04/17/16 21:51 Dose: 10 mg Oxycodone HCl (Roxycodone Tab*) 15 mg PO Q4H PRN PRN Reason: PAIN - MODERATE TO SEVERE Last Admin: 04/18/16 09:30 Dose: 15 mg Prochlorperazine Edisylate (Compazine Inj*) 5 mg IV Q6H PRN PRN Reason: NAUSEA/VOMITING Last Admin: 04/17/16 09:44 Dose: 5 mg Tiotropium Dobson (Spiriva Cap.Inh*) 1 cap INH DAILY [facility] Last Admin: 04/18/16 09:37 Dose: Not Given Zolpidem Tartrate (Ambien Tab*) 5 mg PO BEDTIME [facility] Last Admin: 04/17/16 21:51 Dose: 5 mg Vital Signs 01/17/17 01/17/17 01/17/17 01:52 05:27 07:28 Temperature 97.8 F Pulse Rate 71 Respiratory 16 18 18 Rate Blood Pressure 135/82 (mmHg) O2 Sat by Pulse 100 Oximetry Oxygen Devices in Use Now: None Appearance: Young lady sitting up in bed in NAD. Eyes: No Scleral Icterus Ears/Nose/Mouth/Throat: Mucous Membranes Moist Neck: Trachea Midline Respiratory: Symmetrical Chest Expansion and Respiratory Effort, Clear to Auscultation Cardiovascular: RRR - Normal S1 and S2 Extremities: - - CDI left foot Neurological: Alert and Oriented x 3, NL Muscle Strength and Tone Lines/Tubes/Other Access: Clean, Dry and Intact Peripheral IV Nutrition: Taking PO's Result Diagrams: 04/16/16 06:58 04/16/16 06:58 Assess/Plan/Problems-Billing Assessment: Ms. Lehman is a 35 yo female with a PMH of heroin abuse, anxiety, asthma, HTN and noncompliance who presented to the ED on 04/11 with c/o of left foot swelling, pain and redness. - Patient Problems (1) Cellulitis Comment: - Left foot abscess s/p I&D 04/13, with myositis and cellulitis. - ID input appreciated - continue Cefazolin and metronidazole, plan to change to cephalexin tomorrow, to complete 14 days as outpatient. - Cultures growing MSSA. - Continue pain management. - D/w Ortho - plan for Bethadyne packing dressing 3 times/week and f/u in the office next week. (2) Diarrhea Comment: - Resolved. - Continue probiotic. (3) Anxiety Comment: - Continue supportive care. (4) Asthma Comment: - Controlled. (5) Hypertension Comment: - Better controlled. - Continue Amlodipine and Clonidine. (6) Heroin abuse Comment: - Probably going through mild withdrawal as she has mild tachycardia, HTN, diarrhea. She's getting Oxycodone for pain and this is likely preventing a full blown episode of withdrawal. - She [facility] (7) Muscle spasm Comment: - Continue Diazepam for spasms, but will also help with anxiety. (8) DVT prophylaxis Comment: - Lovenox. (9) Full code status Status and Disposition: Inpatient for IV abx treatment. Anticipate d/c home in AM.
[2016-04-18] MEDS: Enoxaparin(*) 40 MG/0.4 ML SYR SUBCUT SCH (13:33)
--- NOTE | 2016-04-18 13:43 | PN ---
Progress Note - Progress Note SOAP: Subjective: Pt states she is doing well. Her pain is well controlled. She has been out of bed walking the halls. She denies CP or SOB. Objective: PE- General-35 y/o F in NAD, A&O, lying comfortably in bed LLE- wound with minimal purulent discharge, mild edema of the foot, full ROM of ankle, calf soft nontender, NVI Vital Signs Temp Pulse Resp BP Pulse Ox 97.8 F 71 18 135/82 100 04/18/16 07:28 04/18/16 07:28 04/18/16 13:32 04/18/16 07:28 04/18/16 07:28 Assessment: POD #5 I&D left foot Plan: Dressing changed today with betadine packing Abx for ID Hospitalists co-managing partial weight bearing Cont dressing change with betadine packing 3 times a week. F/U in office next week. May discharge when hospitalists and ID find appropriate
--- NOTE | 2016-04-18 15:33 | PN ---
Progress Note - Progress Note SOAP: Subjective: DOS: 04/18/16 CC: foot infection HPI: 35 year old woman with hx club feet now with left foot abscess and wound infection at previous injection site. Had I&D 04/13, tolerated it well. Pain in foot, distal foot, able to bear weight on heel, worse with betadine. No drainage, swelling is decreased. Can wiggle toes. No fever, rash, or diarrhea. Objective: [] Vital Signs Temp 36.7 C 04/18/16 15:22 Pulse 78 04/18/16 15:22 Resp 20 04/18/16 15:22 BP 112/61 04/18/16 15:22 Pulse Ox 99 04/18/16 15:28 Intake & Output 04/17/16 04/18/16 04/18/16 18:59 06:59 18:59 Intake Total 1120 890 590 Balance 1120 890 590 Intake: IV Fluids 610 NS (0.9%) 610 IVPB 110 150 ABX - CEFAZOLIN 50 ABX - FLAGYL 110 100 Oral 400 890 440 Other: Estimated Void Medium Date of Last Bowel 04/17/16 Movement # Bowel Movements 2 1 Estimated Stool Amount Medium # Voids 3 1 2 Gen:Awake, NAD Neuro: alert, Ox3, sensation intact to light touch BL LE HEENT:PERRL, MMM Neck:supple Heart:RRR no murmur Lungs:CTA BL Abd:+BS NTND soft Skin: no rash MSK: Left foot wrapped Sodium 135 mmol/L (133-145) 04/16/16 06:58 Potassium 4.2 mmol/L (3.5-5.0) 04/16/16 06:58 BUN 16 mg/dL (6-24) 04/16/16 06:58 Creatinine 0.70 mg/dL (0.51-0.95) 04/16/16 06:58 Hemoglobin A1c 5.3 % (Less than 6.0) 04/11/16 16:05 Calcium 9.9 mg/dL (8.6-10.3) 04/16/16 06:58 AST 10 U/L (13-39) L 04/11/16 16:05 ALT 13 U/L (7-52) 04/11/16 16:05 Assessment: 1. left foot cellulitis, infective myositis, abscess due to MSSA, s/p I&D 2. 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 elevated CRP Plan: 1. Continue ancef 2 gm IV Q8hrs and flagyl 500 mg IV Q12hrs. Can use keflex 500 mg po tid x14 days for discharge to start 04/19. Follow up with me 1 week. Boot per orthopedics.
[2016-04-18] MEDS: PROCHLORPERAZINE INJ 5 MG/ML 2 ML VIAL IV PRN (17:33)
[2016-04-18] MEDS: Zolpidem TAB* 5 MG PO SCH (20:52)
[2016-04-19] MEDS: oxyCODONE TAB* 5 MG TAB PO PRN ×3 (02:35→12:08)
[2016-04-19] MEDS: Diazepam TAB(*) 10 MG PO PRN (07:25)
[2016-04-19] MEDS: Albuterol HFA INHALER* 8 gm MDI INH PRN (07:26)
[2016-04-19 08:54] VITALS: BP 144/89
[2016-04-19] MEDS: cloNIDine TAB* 0.1 MG PO SCH (09:02)
[2016-04-19] MEDS: ceFAZolin 2 GM PREMIX (*) 2 GM/50 ML BAG IVPB SCH (09:02)
[2016-04-19] MEDS: amLODIPine TAB* 5 MG PO SCH (09:02)
[2016-04-19] MEDS: Lactobacillus Acidophilu (GG)* 1 CAP CAP PO SCH (09:02)
[2016-04-19] MEDS: Citalopram TAB* 10 MG PO SCH (09:02)
[2016-04-19] MEDS: metroNIDAZOLE IV 500 MG/100ML* 500 MG/100 ML BAG IVPB SCH (10:40)
--- NOTE | 2016-04-20 01:55 | DS ---
DISCHARGE SUMMARY: DATE OF ADMISSION: 04/11/16 DATE OF DISCHARGE: 04/19/16 PRIMARY CARE PROVIDER: MIGUELANGEL Chaparro INFECTIOUS DISEASE SPECIALIST: Avery Stanley MD ORTHOPEDIST: Rocael Foss MD DISCHARGE DIAGNOSES: 1. Left foot cellulitis with infective myositis and abscess due to methicillin- susceptible Staphylococcus aureus, status post I and D. 2. History of IV drug use, in brief remission. 3. Diarrhea, associated with antibiotics. 4. Severe anxiety. SECONDARY DIAGNOSES: 1. Opioid abuse. 2. Anxiety. 3. Asthma. 4. Hypertension. MEDICATION LIST: 1. Alveolar HFA 2 puffs inhaled q.4 hours p.r.n. shortness of breath. 2. Amlodipine 10 mg p.o. daily. 3. Cephalexin 500 mg p.o. t.i.d. for 14 days. 4. Citalopram 10 mg p.o. daily. 5. Clonidine 0.1 mg p.o. t.i.d. 6. Diazepam 10 mg p.o. q.8 hours p.r.n. muscle spasms, MDD 30, the patient received prescription for 45 tablets. 7. Advair 1 puff inhaled b.i.d. 8. Culturelle 1 capsule p.o. b.i.d. 9. Montelukast 10 mg p.o. daily. 10. Naproxen 250 mg p.o. q.2 hours p.r.n. [id number] pain. 11. Oxycodone 15 mg p.o. q.4 hours as needed for [id number] pain. MDD 90 mg, dispensed 90 tablets. 12. Zolpidem 5 mg p.o. at bedtime as needed for insomnia. MDD 5 mg, dispensed 30 tablets. The [facility] Prescription Monitoring Program was consulted and the patient last received prescription for alprazolam in November 2015. Reference number [id number]. HOSPITAL COURSE: Ms. Lehman is a 35-year-old lady with past medical history as stated above that presented to the emergency room on April 11 with complaints of left foot swelling and pain. She described injecting heroin into her foot approximately a month ago and she also had an injury to this foot when she removed some glass out of the top of her foot. She tried to treat her lesions at home, but her foot continued to be red, swollen, and painful, so she came to the emergency room for further evaluation. For more details about her presentation, I refer you to her history and physical. The patient was admitted under the impression of cellulitis of the lower extremities and started on IV antibiotics. Foot x-ray showed extensive soft tissue swelling with a probable 0.6 cm radiopaque foreign body between the first and second metatarsal. Lower extremity ultrasound showed no signs of DVT and soft tissue swelling, but no drainable abscess. A lower extremity CT showed soft tissue swelling without identification of foreign body or drainable fluid collection and a lower extremity MRI without contrast showed that the findings were consistent with cellulitis and myositis, no loculated abscess collection was evident, no conspicuous foreign body evident, and negative for suspicious bone marrow signal abnormality to raise concern for osteomyelitis. The patient was seen in consultation by Infectious Disease (Dr. Stanley) and initially, he thought the patient had left foot cellulitis, infective myositis, and a question of acute osteomyelitis of the second and third distal metatarsals. His recommendation was for Ancef and Flagyl IV and for the patient should be seen by orthopedist. She was seen by Dr. Avery and taken to the operating room on April 13 for left foot I and D of the dorsum of the foot in between first and second metatarsals. She described that there was gross purulence apparent and gentle debridement was then done. The patient had progressive improvement of the signs of the infection, but she had significant issues with pain control specially considering her significant history of tolerance with opioids due to her heroin abuse history. We tried to avoid IV opioid as much as possible and we agreed to give her IV morphine prior to dressing changes and to try to control her pain with oral medications. The patient does have history of heroin abuse, but she did have significant pain with this episode and I believe she requires opioids at this point for pain control. She received prescription for 2 weeks of medication and I believe she will need tapering. She [facility] and she was encouraged to keep that appointment. She states that before this episode, she was already cutting down her heroin use and is motivated to quit. She did experience significant muscle spasms to her lower extremity and back and those were controlled with diazepam. She also received a 2- week supply prescription and I believe after that this medication should be tapered. She has significant anxiety and I believe her Celexa dose could be increased as an outpatient so she can be weaned off benzodiazepines to avoid long-term use of these medications. The patient had dressing changes with orthopedist and the recommendation was for Betadine packing with dressing changes 3 times a week. She will follow up with Dr. Foss and Dr. Stanley as outpatient. Her wound cultures grew MSSA and she responded well to IV cephazolin and we now switched to oral cephalexin to complete 2 more weeks of therapy. While in the hospital, the patient had uncontrolled hypertension and we obtained good control with amlodipine and clonidine was added to help with signs of withdrawal and it also helped with blood pressure control. As you start to taper her oxycodone, I believe clonidine is going to be helpful too. The patient experienced mild diarrhea with IV cephazolin and this is much improved with probiotic use. The patient was felt to be medically stable to be discharged home today to follow up with MIGUELANGEL Chaparro, on April 24 and to follow up next week with Dr. Foss and Dr. Stanley. She can bear weight on her left heel as tolerated and visiting nurse services were arranged to assist with dressing changes at home. PHYSICAL EXAMINATION: General: The patient is a young lady, sitting up in the bed, in no acute distress. Vital Signs: Temperature 98.4, heart rate 74, respiratory rate 16, oxygen saturation 98% on room air, and blood pressure is 144/89. Chest: Breath sounds present bilaterally with no added sounds. CVS: Normal S1, S2. Regular rate and rhythm. Abdomen: Soft. Bowel sounds present. Extremities: There is significant improvement of the edema and erythema present in her left lower extremity. There is a clean dressing intact to her left foot. Toes are exposed with good capillary refill. Normal sensation and she can move them. Neuro: She is alert, awake, and oriented x3. She is able to move all 4 extremities. DIET: Regular diet. ACTIVITY: As tolerated. DISPOSITION: To home. STATUS WHILE IN THE HOSPITAL: Inpatient. If you need more information, please feel free to call me at or please obtain the full medical records. TIME SPENT: Approximately 50 minutes was spent to complete this discharge. CC: MIGUELANGEL Chaparro; Dr. Stanley; Rocael Foss MD* [id number]/[facility] #: [id number] GEORGE
== END 2016-04-19 12:30 | disposition home or self-care (01) | DRG 383 ==
LOC: ED 15:14 → MED 19:31 → OBSVTOIN 04-12 12:15
PROVIDERS: ADMIT Hospitalist; ATTEND Internal Medicine
PROC: 0JBR0ZZ Excision of Left Foot Subcutaneous Tissue and Fascia, Open Approach (ICD-10-PCS; principal; 2016-04-13 13:00)
DX: L03.116 Cellulitis of left lower limb (principal); M60.074 Infective myositis, left foot; K52.1 Toxic gastroenteritis and colitis; I10 Essential (primary) hypertension; B95.61 Methicillin susceptible Staphylococcus aureus infection as the cause of diseases classified elsewhere; F41.9 Anxiety disorder, unspecified; J45.909 Unspecified asthma, uncomplicated; F11.10 Opioid abuse, uncomplicated; T36.95XA Adverse effect of unspecified systemic antibiotic, initial encounter; Y92.239 Unspecified place in hospital as the place of occurrence of the external cause; Z91.128 Patient's intentional underdosing of medication regimen for other reason; Z88.6 Allergy status to analgesic agent; Z80.8 Family history of malignant neoplasm of other organs or systems; X58.XXXA Exposure to other specified factors, initial encounter
CPT/HCPCS: 36415; 80048; 80053; 81003; 81015; 83036; 83605; 85025; 86140; 87040; 87070; 87073; 87077; 87186; 87205; 87640; 87641; 90686; 94640; 94760; A9270-GY; G0378; J0360; J0690; J0692; J0780; J1644; J1650; J2270; J2400; J2405; J2543; J3010; J3360; J3370; J3490

== ENCOUNTER 2016-08-14 16:07 | Emergency (ER) | payer OTHER ==
[2016-08-14 19:44] LABS: Manual Entry Verification CAR0052; UR Preg Internal Control QC Line Present; UR Preg Kit Lot# 6030156
[2016-08-14 19:48] LABS: Urine Bacteria Absent (Absent); Urine Bilirubin Negative (Negative); Urine Glucose Negative (Negative); Urine Nitrite Negative (Negative)
--- NOTE | 2016-08-14 19:58 | ED ---
Nicole Mathis Salem, scribed for Alexx Medina MD on 08/14/16 at 1945 . Abdominal Pain/Female - HPI Summary HPI Summary: Patient is a 35 y/o female who presents to the ED with abd pain since yesterday. She reports abdominal cramps, comparable to menstrual cramps. She denies nausea, vomiting, or fever, but reports that she has the urge to urinate , but feels like she cant get it all out. She states that she has had similar sx a few years ago. Pt also states she had a foot infection in April 2016 and was hospitalized for 8 days. She also had a tooth infection 2 weeks ago and was on abx. LMP was 3 years ago. 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 - History of Current Complaint Chief Complaint: EDAbdPain Stated Complaint: ABD PAIN Time Seen by Provider: 08/14/16 19:21 Hx Obtained From: Patient Hx Last Menstrual Period: 1 WEEK AGO ?: No Onset/Duration: Gradual Onset, Lasting Days, Still Present Timing: Constant Severity Initially: Moderate Severity Currently: Moderate Pain Intensity: 6 Pain Scale Used: 0-10 Numeric Location: Diffuse Radiates: No Character: Cramping Aggravating Factor(s): Nothing Alleviating Factor(s): Nothing Associated Signs and Symptoms: Positive: Urinary Symptoms Allergies/Adverse Reactions: Allergies Allergy/AdvReac Type Severity Reaction Status Date / Time Ketorolac Tromethamine Allergy Mild Rash, SOB Verified 08/24/15 12:27 [From Toradol] Tramadol Allergy See Comment Verified 04/12/16 14:49 PMH/Surg Hx/FS Hx/Imm Hx Endocrine/Hematology History: Denies: Hx Diabetes - JUST GESTATIONAL DIABETES Cardiovascular History: Reports: Hx Hypertension Denies: Hx Pacemaker/ICD Respiratory History: Reports: Hx Asthma History: Denies: Hx Renal Disease Sensory History: Denies: Hx Hearing Aid Neurological History: Reports: Other Neuro Impairments/Disorders - 2014 BLUNT HEAD TRAUMA Psychiatric History: Reports: Hx Anxiety, Hx Depression Denies: Hx Panic Disorder - Surgical History Surgery Procedure, Year, and Place: TUBAL LIGATION-CLUB FEET A CHILD REPAIRED -THROAT ABSCESS SURGIALLY DRAINED. 2 Infectious Disease History: Denies: Traveled Outside the [place] in Last 30 Days - Family History Known Family History: Positive: Diabetes Negative: Hypertension - Social History Alcohol Use: None Hx Substance Use: Yes Substance Use Type: Reports: Heroin Substance Use Comment - Amount & Last Used: OXYCODONE, OXYCONTIN Hx Tobacco Use: No Smoking Status (MU): Never Smoked Tobacco Review of Systems Negative: Fever Positive: Abdominal Pain. Negative: Vomiting, Nausea Positive: other - Urge to urinate with feeling like she cant get it all out. All Other Systems Reviewed And Are Negative: Yes Physical Exam Triage Information Reviewed: Yes Vital Signs On Initial Exam: Initial Vitals Temp Pulse Resp BP Pulse Ox 99.1 F 125 16 177/104 100 08/14/16 16:09 08/14/16 16:09 08/14/16 16:09 08/14/16 16:09 08/14/16 16:09 Vital Signs Reviewed: Yes Appearance: Positive: Well-Appearing, No Pain Distress Skin: Positive: Warm Head/Face: Positive: Normal Head/Face Inspection Eyes: Positive: FLORI ENT: Positive: Hearing grossly normal Neck: Positive: Supple Respiratory/Lung Sounds: Positive: Clear to Auscultation, Breath Sounds Present Cardiovascular: Positive: RRR Abdomen Description: Positive: Nontender, No Organomegaly, Soft. Negative: CVA Tenderness (R), CVA Tenderness (L) Bowel Sounds: Positive: Present Musculoskeletal: Positive: Strength/ROM Intact Neurological: Positive: Sensory/Motor Intact, Alert, Oriented to Person Place, Time, Normal Gait Psychiatric: Positive: Affect/Mood Appropriate - Jazmyn Coma Scale Coma Scale Total: 15 Diagnostics - Vital Signs Vital Signs Temp Pulse Resp BP Pulse Ox 08/14/16 19:01 99.5 F 120 16 170/109 99 08/14/16 16:09 99.1 F 125 16 177/104 100 - Laboratory Lab Results: Lab Results 08/14/16 Range/Units 19:30 Urine Color Pending Urine Appearance Pending Urine pH Pending Ur Specific [place] Pending Urine Protein Pending Urine Ketones Pending Urine Blood Pending Urine Nitrate Pending Urine Bilirubin Pending Urine Urobilinogen Pending Ur Leukocyte Esterase Pending Urine Glucose Pending Urine Ascorbic Acid Pending Urine Test Negative (Negative) Lab Statement: Any lab studies that have been ordered have been reviewed, and results considered in the medical decision making process. Re-Evaluation - Re-Evaluation First Eval Re-Evaluation Time: 20:04 Change: Improved Abdominal Pain Fem Course/Dx - Diagnoses Provider Diagnoses: Abdominal pain Discharge - Discharge Plan Condition: Stable Disposition: HOME Patient Education Materials: Abdominal Pain (ED) Referrals: [facility] [Outside] Stephany Norman NP [Primary Care Provider] - Additional Instructions: Follow up with PCP. The documentation as recorded by the Nicole zhong Salem accurately reflects the service I personally performed and the decisions made by me, Alexx Medina MD.
[2016-08-14 20:03] VITALS: BP 159/115
== END 2016-08-14 20:01 | disposition home or self-care (01) ==
LOC: ED 16:07
DX: R10.9 Unspecified abdominal pain (principal)
CPT/HCPCS: 81003; 81015; 81025; 87086; 99282

== ENCOUNTER 2016-08-24 04:28 | Inpatient (IN) | payer OTHER ==
[2016-08-24] MEDS ORDERED: NS 0.9% 1000 ML* 1,000 ML IV ONE ×2 (04:30→07:56)
[2016-08-24] MEDS ORDERED: Ondansetron INJ* 2 MG/ML VIAL IV ONE ×2 (04:32→08:25)
[2016-08-24 04:52] LABS: Hematocrit 41 % (35-47); Hemoglobin 13.7 g/dl (12.0-16.0); Mean Corpuscular HGB Conc 34 g/dl (31-36); Mean Corpuscular Hemoglobin 27 pg (27-31); Mean Corpuscular Volume 79 fL (80-97); Mean Platelet Volume 7 um3 (7.4-10.4); Red Blood Count 5.17 10^6/ul (4.0-5.4); Red Cell Distribution Width 14 % (10.5-15); White Blood Count 13.5 10^3/ul (3.5-10.8)
[2016-08-24 05:07] LABS: ALT 11 U/L (7-52); Albumin 4.7 g/dL (3.2-5.2); Alkaline Phosphatase 82 U/L (34-104); Blood Urea Nitrogen 10 mg/dL (6-24); CO2 Carbon Dioxide 23 mmol/L (22-32); Chloride 97 mmol/L (101-111); EGFR African American 108.5 (>60); EGFR Non-African American 84.4 (>60); Globulin 4.8 g/dL (2-4); Glucose 118 mg/dL (70-100); Sodium 135 mmol/L (133-145); Total Protein 9.5 g/dL (6.4-8.9)
[2016-08-24 05:32] LABS: Acetaminophen < 15 mcg/mL; Alcohol < 10 mg/dL (<10); Salicylate < 2.50 mg/dL (<30)
--- NOTE | 2016-08-24 06:03 | ED ---
Glen Mathis Benjamin, scribed for Alexx Medina MD on 08/24/16 at 0449 . Substance Abuse/Use - HPI Summary HPI Summary: Female BIB EMS after shooting up heroin. Pts friend called 911. Pt reports abdominal pain and gagging and vomiting profusely. Pt is able to give full history as she is constantly gagging, spitting, and vomiting. Per EMS, pt is A& Ox3. Level 5 caveat. - History Of Current Complaint Chief Complaint: EDSubstanceAbuse Stated Complaint: OVERDOSE Time Seen by Provider: 08/24/16 04:29 Hx From Patient Unobtainable Due To: Other - LEVEL 5 caveat Hx Last Menstrual Period: 1 WEEK AGO Ingestion History: Type/Name Of Drug - heroin Overdose Characteristics: IV - Allergies/Home Medications Allergies/Adverse Reactions: Allergies Allergy/AdvReac Type Severity Reaction Status Date / Time Ketorolac Tromethamine Allergy Mild Rash, SOB Verified 08/24/16 04:37 [From Toradol] Tramadol Allergy See Comment Verified 08/24/16 04:37 PMH/Surg Hx/FS Hx/Imm Hx Endocrine/Hematology History: Denies: Hx Diabetes - JUST GESTATIONAL DIABETES Cardiovascular History: Reports: Hx Hypertension Denies: Hx Pacemaker/ICD Respiratory History: Reports: Hx Asthma History: Denies: Hx Renal Disease Sensory History: Denies: Hx Hearing Aid Neurological History: Reports: Other Neuro Impairments/Disorders - 2014 BLUNT HEAD TRAUMA Psychiatric History: Reports: Hx Anxiety, Hx Depression, Hx Substance Abuse - IV drugs (heroin) Denies: Hx Panic Disorder - Surgical History Surgery Procedure, Year, and Place: TUBAL LIGATION-CLUB FEET A CHILD REPAIRED -THROAT ABSCESS SURGIALLY DRAINED. 2 Infectious Disease History: No Infectious Disease History: Denies: Traveled Outside the [place] in Last 30 Days - Family History Known Family History: Positive: Diabetes Negative: Hypertension - Social History Occupation: Unemployed Lives: Alone Alcohol Use: None Hx Substance Use: Yes Substance Use Type: Reports: Heroin Substance Use Comment - Amount & Last Used: OXYCODONE, OXYCONTIN Hx Tobacco Use: No Smoking Status (MU): Never Smoked Tobacco Review of Systems - ROS Summary Review of Systems Summary: Unable to obtain full ROS. LEVEL 5 CAVEAT. Positive: Abdominal Pain, Vomiting All Other Systems Reviewed And Are Negative: No Physical Exam Triage Information Reviewed: Yes Vital Signs On Initial Exam: Initial Vitals Temp Pulse Resp Pulse Ox 97.6 F 110 22 97 08/24/16 04:36 08/24/16 04:36 08/24/16 04:36 08/24/16 04:36 Vital Signs Reviewed: Yes Appearance: Positive: No Pain Distress - retching and spitting on self Skin: Positive: Warm Head/Face: Positive: Normal Head/Face Inspection ENT: Positive: Hearing grossly normal Respiratory/Lung Sounds: Positive: Breath Sounds Present Cardiovascular: Positive: RRR Abdomen Description: Positive: Soft Musculoskeletal: Positive: Strength/ROM Intact Neurological: Positive: Alert, Oriented to Person Place, Time Diagnostics - Vital Signs Vital Signs Temp Pulse Resp BP Pulse Ox 08/24/16 04:44 97.6 F 113 22 145/93 97 08/24/16 04:36 97.6 F 110 22 97 - Laboratory Lab Results: Lab Results 08/24/16 08/24/16 08/24/16 Range/Units 04:40 04:40 04:40 WBC 13.5 H (3.5-10.8) 10^3/ul RBC 5.17 (4.0-5.4) 10^6/ul Hgb 13.7 (12.0-16.0) g/dl Hct 41 (35-47) % MCV 79 L (80-97) fL MCH 27 (27-31) pg MCHC 34 (31-36) g/dl RDW 14 (10.5-15) % Plt Count 408 (150-450) 10^3/ul MPV 7 L (7.4-10.4) um3 Neut % (Auto) 64.8 (38-83) % Lymph % (Auto) 23.2 L (25-47) % [place] % (Auto) 10.2 H (1-9) % Eos % (Auto) 1.0 (0-6) % Baso % (Auto) 0.8 (0-2) % Absolute Neuts (auto) 8.8 H (1.5-7.7) 10^3/ul Absolute Lymphs (auto) 3.1 (1.0-4.8) 10^3/ul Absolute Monos (auto) 1.4 H (0-0.8) 10^3/ul Absolute Eos (auto) 0.1 (0-0.6) 10^3/ul Absolute Basos (auto) 0.1 (0-0.2) 10^3/ul Absolute Nucleated RBC 0.01 10^3/ul Nucleated RBC % 0 Sodium 135 (133-145) mmol/L Potassium TNP Chloride 97 L (101-111) mmol/L Carbon Dioxide 23 (22-32) mmol/L Anion Gap TNP BUN 10 (6-24) mg/dL Creatinine 0.77 (0.51-0.95) mg/dL Est GFR ( Amer) 108.5 (>60) Est GFR (Non-Af Amer) 84.4 (>60) BUN/Creatinine Ratio 13.0 (8-20) Glucose 118 H (70-100) mg/dL Lactic Acid 2.5 H* (0.5-2.0) mmol/L Calcium 11.0 H (8.6-10.3) mg/dL Total Bilirubin 0.40 (0.2-1.0) mg/dL AST TNP ALT 11 (7-52) U/L Alkaline Phosphatase 82 (34-104) U/L Total Protein 9.5 H (6.4-8.9) g/dL Albumin 4.7 (3.2-5.2) g/dL Globulin 4.8 H (2-4) g/dL Albumin/Globulin Ratio 1.0 (1-3) Beta HCG, Quant 0.83 mIU/mL Salicylates < 2.50 (<30) mg/dL Acetaminophen < 15 mcg/mL Serum Alcohol < 10 (<10) mg/dL Result Diagrams: 08/24/16 04:40 08/24/16 11:46 Lab Statement: Any lab studies that have been ordered have been reviewed, and results considered in the medical decision making process. Course/Dx - Diagnoses Provider Diagnoses: Intractable nausea and vomiting, Diarrhea, Polysubstance abuse Discharge - Discharge Plan Condition: Fair Disposition: ADMITTED TO [facility] documentation as recorded by the Glen zhong Benjamin accurately reflects the service I personally performed and the decisions made by Adam hassan David, MD.
[2016-08-24] MEDS ORDERED: Metoclopramide IV* 5 MG/ML 2 ML VIAL ONE (06:13)
[2016-08-24] MEDS ORDERED: Metoclopramide IV* 5 MG/ML 2 ML VIAL IV ONE (06:18)
[2016-08-24] MEDS ORDERED: Ondansetron INJ* 2 MG/ML VIAL ONE (08:27)
[2016-08-24] MEDS ORDERED: Promethazine INJ(RESTRICTED)* 25 MG/ML 1 ML VIAL IV ONE (08:46)
[2016-08-24 09:11] LABS: Urine Bacteria Absent (Absent); Urine Bilirubin Negative (Negative); Urine Glucose Negative (Negative); Urine Nitrite Negative (Negative)
[2016-08-24] MEDS ORDERED: LORazepam INJ* 2 MG/ML 1 ML VIAL IV PUSH ONE (09:25)
[2016-08-24 09:26] LABS: Benzodiazepine Urine Screen Presumptive Positive (None Detect)
[2016-08-24] MEDS ORDERED: NS 0.9% 1000 ML* 1,000 ML IV SCH (09:30)
--- NOTE | 2016-08-24 09:49 | ED ---
yana Mathis Timothy, scribed for Darin Guzman MD on 08/24/16 at 0840 . Progress - Progress Note Progress Note: Zaynab Lehman is a 35 yo female presenting to [facility] with 4/10 abd pain, N/V after injecting an unk substance 08/23/16. Her MHx includes HTN, asthma, chronic back pain. Pt was signed out by Dr. Medina, and continues to have N/V despite administration of zofran, and reglan. Her quick physical exam was grossly normal. VITAL SIGNS: Reviewed. GENERAL: Patient is a well-developed and nourished FEMALE who is lying comfortable in the stretcher. Patient is not in any acute respiratory distress. HEAD AND FACE: No signs of trauma. No ecchymosis, hematomas or skull depressions. No sinus tenderness. EYES: PERRLA, EOMI x 2, No injected conjunctiva, no nystagmus. EARS: Hearing grossly intact. Ear canals and tympanic membranes are within normal limits. MOUTH: Oropharynx within normal limits. NECK: Supple, trachea is midline, no adenopathy, no JVD, no carotid bruit, no c- spine tenderness, neck with full ROM. CHEST: Symmetric, no tenderness at palpation LUNGS: Clear to auscultation bilaterally. No wheezing or crackles. CVS: Regular rate and rhythm, S1 and S2 present, no murmurs or gallops appreciated. ABDOMEN: Soft, non-tender. No signs of distention. No rebound no guarding, and no masses palpated. Bowel sounds are normal. EXTREMITIES: FROM in all major joints, no edema, no cyanosis or clubbing. NEURO: Alert and oriented x 3. No acute neurological deficits. Speech is normal and follows commands. SKIN: Dry and warm Course/Dx - Course Course Of Treatment: Zaynab Lehman is a 35 yo female presenting to [facility] with 4/10 abd pain, N/V after injecting an unk substance 08/23/16. Her MHx includes HTN, astma, chronic back pain. After clinical examination and review of her lab studies as well as discussion with Dr. Steven, she will be admitted to [facility] with intractable N/V/D. - Diagnoses Provider Diagnoses: Intractable nausea and vomiting, Diarrhea, Polysubstance abuse - Provider Notifications Discussed Care Of Patient With: 0837 - Dr. Steven (hospitalist) - discussed Pt condition, accepts Pt for admission. The documentation as recorded by the katlynibeyana Timothy accurately reflects the service I personally performed and the decisions made by me, Darin Guzman MD.
[2016-08-24] MEDS ORDERED: PROCHLORPERAZINE INJ 5 MG/ML 2 ML VIAL IV ONE (10:00)
[2016-08-24] MEDS: Metoclopramide IV* 5 MG/ML 2 ML VIAL IV SLOW PU PRN ×2 (11:20→20:00)
[2016-08-24] MEDS: LORazepam INJ* 2 MG/ML 1 ML VIAL IV PUSH PRN ×3 (12:08→22:50)
[2016-08-24 12:10] LABS: BUN/Creatinine Ratio 14.6 (8-20); Calcium 10.2 mg/dL (8.6-10.3); EGFR African American 100.9 (>60); EGFR Non-African American 78.4 (>60); Potassium 3.5 mmol/L (3.5-5.0)
[2016-08-24] MEDS: NS 0.9% 1000 ML* 1,000 ML IV SCH ×2 (12:14→22:04)
[2016-08-24] MEDS: cloNIDine TAB* 0.1 MG PO SCH ×2 (13:35→19:49)
[2016-08-24] MEDS: Morphine INJ* 2 MG/ML 1 ML SYRINGE IV PRN ×3 (14:28→22:50)
[2016-08-24] MEDS: Ondansetron INJ* 2 MG/ML VIAL IV PRN (15:12)
[2016-08-24] MEDS: Acetaminophen TAB* 325 MG PO PRN (16:42)
[2016-08-24] MEDS: Albuterol HFA INHALER* 8 gm MDI INH PRN (18:34)
--- NOTE | 2016-08-24 18:55 | HP ---
ADMISSION HISTORY AND PHYSICAL: DATE OF ADMISSION: 08/24/2016. PRIMARY CARE PROVIDER: None. HEALTHCARE PROXY: Her mother. CODE STATUS: Full. SOURCE OF INFORMATION: History obtained from interview with the patient, review of past medical records, and review of EMS records. RELIABILITY: Reliability of patient is poor. EMS records are excellent and our records are excellent. CHIEF COMPLAINT: Overdose. HISTORY OF PRESENT ILLNESS: A 35-year-old female, active IV heroin abuse, brought in by EMS status post injection of what was thought to be heroin. Per EMS records, they were overdose. They arrived on the scene to find the patient is alert and oriented and lying on the floor in the right side dry heaving, talking to a friend. The patient at the time was in no apparent distress and had shot of approximately 10 minutes prior to EMS arrival of what was thought to be heroin and dry heaving since that time. Per EMS records, the friend on seeing the patient, no Narcan was administered. The patient was able to walk to the stretcher. Full evaluation in the field was difficult, reportedly secondary to patient's agitation, nausea, and vomiting. When seen by this author, the patient reported abdominal pain as well as continued sensation of nausea and vomiting. In the emergency room, she had previously received Reglan for a total of 20 mg, Zofran for a total of 12 mg and Phenergan 12.5 mg. The patient reports that she uses regularly approximately twice per day. Her last injection was approximately yesterday afternoon. Around 3 a.m., the patient obtained new drugs and injected after which she immediately felt short of breath "weird", tasted perfume and started gagging. Her friend and nobody else used the same batch of drugs. She immediately developed abdominal pain and diarrhea and started dry heaving as indicated above. She had no headache, vision changes, but endorse achy back similar to when she has withdrawn in the past, which has always been a hallmark of her withdrawal. She notes that last time she withdrew was several months prior. The patient was recently treated for teeth infection approximately 3 weeks prior and presented to the emergency room on 08/14 with abdominal cramping similar to this presentation. PAST MEDICAL HISTORY: Gestational diabetes, hypertension, head trauma in 2013, anxiety, depression, active IV drug use, left foot infection in April 2016 noted to be cellulitis with myositis and abscess secondary to MSSA concern for underlying osteomyelitis. Asthma. MEDICATIONS: Patient takes medications sporadically. Does not have a PCP at this time, never had been prescribed and is currently takin. Xanax. 2. Citalopram. 3. Albuterol. 4. Clonidine 0.1 mg 3 times a day. 5. Norvasc 10 mg from refills that she received on last visit here. ALLERGIES: KETOROLAC and TRAMADOL. FAMILY HISTORY: No history of diabetes or heart disease. Mother had skin cancer that was removed. Does not know the rest of her family history. SOCIAL HISTORY: Uses heroin one to two times per day, oxycodone and OxyContin, has 2 children. Previously had shared custody with mother, unclear custody at this time. Denies alcohol. Denies tobacco. Denies all other illicit substances. REVIEW OF SYSTEMS: As per HPI including abdominal pain, nausea, vomiting, diarrhea, sensation of feeling weird, sensation of smelling perfume; otherwise all other systems negative. PHYSICAL EXAMINATION GENERAL: Sitting on edge of bed, talks in full sentences, had episode of dry heaving, otherwise no apparent distress. VITAL SIGNS: In the emergency room, currently the patient is removed of active vital sign monitoring. Last checked this a.m., 150/101, heart rate 107, respiratory rate when seen by this author 18, T-max in the emergency room is 97.6, she is 98% on room air. HEENT: Her oropharynx is clear. She has moist mucous membranes. No evidence of active infection. NECK: She has no palpable cervical lymphadenopathy. LUNGS: Clear to auscultation. HEART: Regular rate and rhythm. No murmurs, rubs, or gallops. ABDOMEN: Soft, nontender, nondistended, and has positive bowel sounds. Pressure induces gagging. EXTREMITIES: Warm and well perfused, no clubbing, cyanosis, or edema. There is no evidence of infection in the left foot. She has apparent agitation. No apparent anxiety or depression. DATA REVIEWED: White blood cell count of 13,500, neutrophil counts 24,800, hemoglobin 13.7, platelets 408. Sodium 135, chloride 97, bicarb 23, BUN 10, creatinine 0.77, glucose 118, lactic acid 2.5, calcium is 11. Beta-HCG is 0.83. Urine is positive for protein, ketones, blood, negative for nitrites. There is no bacteria. Toxicology, absence of aspirin, alcohol, acetaminophen, all other drug tests is still pending. No other data to review at this time. EKG is ordered and pending. ASSESSMENT AND PLAN: This is a 35-year-old female, active IV drug use with heroin, developed abdominal pain, dry heaving, and diarrhea after injecting unknown substance thought to be heroin. 1. Intractable nausea, vomiting, and abdominal pain. Suspect in the setting of unknown ingestion. I will not pursue head imaging as no head strike and symptoms started immediately or after injection. We will not pursue CT imaging of her abdomen for similar reasons as above. Suspect symptoms are related to ingestion of unknown substance. Urine toxicology is still pending. Patient received straight catheterization to obtain sample. We will continue ondansetron and Reglan in addition to Ativan used for intractable nausea. I made observation to hospital. 2. Abdominal pain. Again believe in the setting of withdrawal in addition to injection of unknown substance. I have provided morphine IV. She could not take anything oral for continued abdominal pain. 3. Hypercalcemia. Again in the setting of nausea and vomiting, continue normal saline as indicated above. 4. Lactic acidosis. Minimally elevated. Continue normal saline. Monitor for resolution. 5. Diarrhea in the setting of unknown ingestion. Continue to monitor. We will need to check for Clostridium difficile colitis at this time if diarrhea did not proceed injection of unknown substance. 6. Deep venous thrombosis prophylaxis, low risk, SCDs and ambulate as desired. [id number]/[facility] #: [id number] MTDD
[2016-08-24] MEDS ORDERED: Zolpidem TAB* 5 MG PO SCH (21:00)
[2016-08-25] MEDS: Albuterol HFA INHALER* 8 gm MDI INH PRN ×3 (01:10→10:11)
[2016-08-25] MEDS: Metoclopramide IV* 5 MG/ML 2 ML VIAL IV SLOW PU PRN ×3 (01:59→21:33)
[2016-08-25] MEDS: Morphine INJ* 2 MG/ML 1 ML SYRINGE IV PRN ×6 (02:50→22:52)
[2016-08-25] MEDS: LORazepam INJ* 2 MG/ML 1 ML VIAL IV PUSH PRN ×5 (02:51→18:44)
[2016-08-25] MEDS: Acetaminophen TAB* 325 MG PO PRN ×2 (04:46→17:40)
[2016-08-25] MEDS ORDERED: Loperamide CAP* 2 MG PO ONE (04:54)
[2016-08-25] MEDS ORDERED: Loperamide CAP* 2 MG ONE (05:00)
[2016-08-25] MEDS: Ondansetron INJ* 2 MG/ML VIAL IV PRN ×2 (05:04→17:03)
[2016-08-25] MEDS: cloNIDine TAB* 0.1 MG PO SCH ×3 (07:30→21:32)
[2016-08-25] MEDS: amLODIPine TAB* 5 MG PO SCH (07:30)
[2016-08-25] MEDS ORDERED: Iohexol 300* (CONTRAST) 10 ML SDV IV ONE (13:46)
--- NOTE | 2016-08-25 14:58 | RAD ---
CLINICAL HISTORY: Abdominal pain, right upper quadrant pain COMPARISON: None TECHNIQUE: Multiple contiguous axial CT scans were obtained of the abdomen and pelvis after the administration of intravenous contrast. Coronal and sagittal multiplanar reformations are submitted for review. Oral contrast was not administered. Delayed images were obtained through the abdomen and pelvis. FINDINGS: Evaluation is somewhat limited by patient motion artifact. LUNG BASES: The lung bases are clear. LIVER: The liver is normal in shape, size, contour, and attenuation. BILE DUCTS: There is no intrahepatic or extrahepatic biliary dilatation. GALLBLADDER: The gallbladder is normal, without pericholecystic inflammatory change. PANCREAS: The pancreas is normal, without mass or ductal dilatation. SPLEEN: Normal in size and appearance. UPPER GI TRACT: Evaluation of the gastrointestinal tract is limited by incomplete gastric distention. The upper GI tract is unremarkable. SMALL BOWEL AND MESENTERY: The small bowel is normal in contour, course, and caliber. There is no obstruction or dilatation. COLON: The colon is normal in contour, course, caliber. There is no pericolonic inflammatory change. ADRENALS: Normal bilaterally. KIDNEYS: The kidneys are normal in shape, size, contour, and axis. There is no hydronephrosis or nephrolithiasis. BLADDER: The bladder is incompletely distended but is grossly normal. PELVIC ORGANS: The uterus and adnexa are grossly normal for technique. AORTA: The aorta is normal. IVC: Unremarkable LYMPH NODES: There is no lymphadenopathy by size criteria. ABDOMINAL WALL: There is no evidence for abdominal wall hernia. BONES AND SOFT TISSUES: Unremarkable OTHER: None IMPRESSION: NO ACUTE CT PATHOLOGY OF THE ABDOMEN OR PELVIS
--- NOTE | 2016-08-25 15:23 | PN ---
Subjective Date of Service: 08/25/16 Interval History: Still with nausea. Was unable to drink any of PO contrast. Diarrhea improved. Still reporting severe abdominal pain. Now requesting detox program and SW in agreement. Referrals sent for direct to rehab transition. Objective Active Medications: Acetaminophen (Tylenol Tab*) 650 mg PO Q4H PRN PRN Reason: FEVER/PAIN Last Admin: 08/25/16 04:46 Dose: 650 mg Albuterol (Ventolin Hfa Inhaler*) 2 puff INH Q4H PRN PRN Reason: SOB/WHEEZING Last Admin: 08/25/16 10:11 Dose: 2 puff Amlodipine Besylate (Norvasc Tab*) 10 mg PO DAILY [facility] Last Admin: 08/25/16 07:30 Dose: 10 mg Clonidine HCl (Catapres Tab*) 0.1 mg PO TID [facility] Last Admin: 08/25/16 13:43 Dose: 0.1 mg Sodium Chloride (Ns 0.9% 1000 Ml*) 1,000 mls @ 150 mls/hr IV PER RATE [facility] Stop: 08/25/16 16:12 Last Admin: 08/24/16 22:04 Dose: 150 mls/hr Lorazepam (Ativan Inj*) 1 mg IV PUSH Q4H PRN PRN Reason: NAUSEA Last Admin: 08/25/16 14:51 Dose: 1 mg Metoclopramide HCl (Reglan Iv*) 10 mg IV SLOW PU Q6H PRN PRN Reason: NAUSEA Last Admin: 08/25/16 13:43 Dose: 10 mg Morphine Sulfate (Morphine Inj (Syringe)*) 1 mg IV Q4H PRN PRN Reason: PAIN Ondansetron HCl (Zofran Inj*) 4 mg IV Q4H PRN PRN Reason: NAUSEA/VOMITING Last Admin: 08/25/16 05:04 Dose: 4 mg Zolpidem Tartrate (Ambien Tab*) 5 mg PO BEDTIME [facility] Last Admin: 08/24/16 21:12 Dose: 5 mg Vital Signs 08/24/16 08/24/16 08/24/16 15:28 16:09 16:44 Temperature 97.7 F Pulse Rate 108 Respiratory 20 18 18 Rate Blood Pressure 159/86 (mmHg) O2 Sat by Pulse 100 Oximetry 08/24/16 08/24/16 08/24/16 17:44 18:39 19:08 Temperature Pulse Rate Respiratory 18 18 18 Rate Blood Pressure (mmHg) O2 Sat by Pulse Oximetry 08/24/16 08/24/16 08/24/16 19:30 22:50 22:58 Temperature 98.4 F 98.0 F Pulse Rate 107 91 Respiratory 16 16 16 Rate Blood Pressure 166/87 140/87 (mmHg) O2 Sat by Pulse 100 100 Oximetry 08/24/16 08/25/16 08/25/16 23:50 02:50 02:51 Temperature Pulse Rate Respiratory 16 19 19 Rate Blood Pressure (mmHg) O2 Sat by Pulse Oximetry 08/25/16 08/25/16 08/25/16 03:50 03:51 04:36 Temperature 98.1 F Pulse Rate 95 Respiratory 18 18 Rate Blood Pressure 150/86 (mmHg) O2 Sat by Pulse 100 Oximetry 08/25/16 08/25/16 08/25/16 05:06 06:58 06:59 Temperature Pulse Rate Respiratory 16 18 18 Rate Blood Pressure (mmHg) O2 Sat by Pulse Oximetry 08/25/16 08/25/16 08/25/16 07:21 10:48 11:48 Temperature 98.0 F Pulse Rate 95 Respiratory 18 18 18 Rate Blood Pressure 151/86 (mmHg) O2 Sat by Pulse 100 Oximetry 08/25/16 14:51 Temperature Pulse Rate Respiratory 18 Rate Blood Pressure (mmHg) O2 Sat by Pulse Oximetry Oxygen Devices in Use Now: None Appearance: NAD Eyes: No Scleral Icterus, PERRLA Ears/Nose/Mouth/Throat: Clear Oropharnyx, Mucous Membranes Moist Neck: NL Appearance and Movements; NL JVP, Trachea Midline Respiratory: Symmetrical Chest Expansion and Respiratory Effort, Clear to Auscultation Cardiovascular: RRR Abdominal: - - soft, TTP throughout greatest RUQ, ND, +bs, no rebound/guarding Lymphatic: No Cervical Adenopathy Extremities: No Edema Skin: - - multiple bruises, small areas of thrombophlebitis on arms and hands and feet without associated erythema or tenderness Neurological: Alert and Oriented x 3 Result Diagrams: 08/24/16 04:40 08/24/16 11:46 Additional Lab and Data: Lab Results 08/24/16 08/24/16 08/24/16 Range/Units 04:40 04:40 04:40 WBC 13.5 H (3.5-10.8) 10^3/ul RBC 5.17 (4.0-5.4) 10^6/ul Hgb 13.7 (12.0-16.0) g/dl Hct 41 (35-47) % MCV 79 L (80-97) fL MCH 27 (27-31) pg MCHC 34 (31-36) g/dl RDW 14 (10.5-15) % Plt Count 408 (150-450) 10^3/ul MPV 7 L (7.4-10.4) um3 Neut % (Auto) 64.8 (38-83) % Lymph % (Auto) 23.2 L (25-47) % [place] % (Auto) 10.2 H (1-9) % Eos % (Auto) 1.0 (0-6) % Baso % (Auto) 0.8 (0-2) % Absolute Neuts (auto) 8.8 H (1.5-7.7) 10^3/ul Absolute Lymphs (auto) 3.1 (1.0-4.8) 10^3/ul Absolute Monos (auto) 1.4 H (0-0.8) 10^3/ul Absolute Eos (auto) 0.1 (0-0.6) 10^3/ul Absolute Basos (auto) 0.1 (0-0.2) 10^3/ul Absolute Nucleated RBC 0.01 10^3/ul Nucleated RBC % 0 Sodium 135 (133-145) mmol/L Potassium TNP Chloride 97 L (101-111) mmol/L Carbon Dioxide 23 (22-32) mmol/L Anion Gap TNP BUN 10 (6-24) mg/dL Creatinine 0.77 (0.51-0.95) mg/dL Est GFR ( Amer) 108.5 (>60) Est GFR (Non-Af Amer) 84.4 (>60) BUN/Creatinine Ratio 13.0 (8-20) Glucose 118 H (70-100) mg/dL Lactic Acid 2.5 H* (0.5-2.0) mmol/L Calcium 11.0 H (8.6-10.3) mg/dL Total Bilirubin 0.40 (0.2-1.0) mg/dL AST TNP ALT 11 (7-52) U/L Alkaline Phosphatase 82 (34-104) U/L Total Protein 9.5 H (6.4-8.9) g/dL Albumin 4.7 (3.2-5.2) g/dL Globulin 4.8 H (2-4) g/dL Albumin/Globulin Ratio 1.0 (1-3) Beta HCG, Quant 0.83 mIU/mL Salicylates < 2.50 (<30) mg/dL Acetaminophen < 15 mcg/mL Serum Alcohol < 10 (<10) mg/dL Assess/Plan/Problems-Billing Assessment: 35 yo F active IVDU p/w intractable N/V after injection of substance thought to be heroin - Patient Problems (1) Nausea & vomiting Comment: continues with minimal improvement c/w antiemetics including ativan advance diet as able. Was tolerating icecream today (2) Abdominal pain Comment: CT abdomen/pelvis negative suspect related to unknown IV ingestion (3) Heroin abuse Comment: Plan on direct to rehab transfer (4) DVT prophylaxis Comment: HSQ
[2016-08-25] MEDS: Simethicone CHEW TAB* 80 MG PO PRN ×2 (17:54→22:54)
[2016-08-25] MEDS ORDERED: diPHENhydraMINE IV* 50 MG in NS 0.9% 50 ML* 50 ML IVPB ONE (19:30)
[2016-08-25] MEDS ORDERED: diPHENhydraMINE IV* 50 MG/ML 1 ml VIAL (BENADRYL) ONE (19:41)
[2016-08-25] MEDS: Zolpidem TAB* 10 MG PO PRN (22:52)
[2016-08-26] MEDS: Morphine INJ* 2 MG/ML 1 ML SYRINGE IV PRN ×5 (03:08→20:08)
[2016-08-26] MEDS: LORazepam INJ* 2 MG/ML 1 ML VIAL IV PUSH PRN ×4 (03:10→15:59)
[2016-08-26] MEDS: Ondansetron INJ* 2 MG/ML VIAL IV PRN ×2 (03:11→18:34)
[2016-08-26] MEDS: Simethicone CHEW TAB* 80 MG PO PRN ×3 (07:37→23:34)
[2016-08-26] MEDS: amLODIPine TAB* 5 MG PO SCH (07:37)
[2016-08-26] MEDS: cloNIDine TAB* 0.1 MG PO SCH ×3 (07:37→20:07)
[2016-08-26] MEDS: Metoclopramide IV* 5 MG/ML 2 ML VIAL IV SLOW PU PRN ×2 (15:32→23:34)
--- NOTE | 2016-08-26 16:47 | PN ---
Subjective Date of Service: 08/26/16 Interval History: Patient continues to report abdominal pain. Had diarrhea X2 today, better than yesterday. No vomiting, mild nausea. Reports she is going to [place] for detox Sunday. She reports taking Xanax 1 mg qid prn and marijuana, as well as 2-3 bags heroin/ day prior to admission. Family History: Unchanged from Admission Social History: Unchanged from Admission Past Medical History: Unchanged from Admission Objective Active Medications: Acetaminophen (Tylenol Tab*) 650 mg PO Q4H PRN PRN Reason: FEVER/PAIN Last Admin: 08/25/16 17:40 Dose: 650 mg Albuterol (Ventolin Hfa Inhaler*) 2 puff INH Q4H PRN PRN Reason: SOB/WHEEZING Last Admin: 08/25/16 10:11 Dose: 2 puff Amlodipine Besylate (Norvasc Tab*) 10 mg PO DAILY [facility] Last Admin: 08/26/16 07:37 Dose: 10 mg Clonidine HCl (Catapres Tab*) 0.1 mg PO TID COUNT INCLUDES [facility] Last Admin: 08/26/16 13:45 Dose: 0.1 mg Metoclopramide HCl (Reglan Iv*) 10 mg IV SLOW PU Q6H PRN PRN Reason: NAUSEA Last Admin: 08/26/16 15:32 Dose: 10 mg Morphine Sulfate (Morphine Inj (Syringe)*) 1 mg IV Q4H PRN PRN Reason: PAIN Last Admin: 08/26/16 15:59 Dose: 1 mg Ondansetron HCl (Zofran Inj*) 4 mg IV Q4H PRN PRN Reason: NAUSEA/VOMITING Last Admin: 08/26/16 03:11 Dose: 4 mg Simethicone (Mylicon*) 80 mg PO Q6H PRN PRN Reason: gas Last Admin: 08/26/16 13:45 Dose: 80 mg Zolpidem Tartrate (Ambien Tab*) 10 mg PO BEDTIME PRN PRN Reason: INSOMNIA Last Admin: 08/25/16 22:52 Dose: 10 mg Vital Signs 08/26/16 08/26/16 08/26/16 08:00 08:16 11:25 Temperature 36.2 C Pulse Rate 84 Respiratory 16 16 20 Rate Blood Pressure 128/77 (mmHg) O2 Sat by Pulse 100 Oximetry 08/26/16 08/26/16 15:28 15:59 Temperature 36.8 C Pulse Rate 85 Respiratory 16 Rate Blood Pressure 121/70 (mmHg) O2 Sat by Pulse 100 Oximetry Oxygen Devices in Use Now: None Appearance: alert, ambulating in hallway Eyes: No Scleral Icterus Ears/Nose/Mouth/Throat: Clear Oropharnyx Neck: No Thyroid Enlargement, Masses Respiratory: Clear to Auscultation Cardiovascular: NL Sounds; No Murmurs; No JVD Abdominal: No Hepatosplenomegaly, - - distended, soft, +BS, tender throughout subjectively. Extremities: No Edema Neurological: Alert and Oriented x 3 Lines/Tubes/Other Access: Clean, Dry and Intact Peripheral IV Nutrition: Taking PO's Result Diagrams: 08/24/16 04:40 08/24/16 11:46 Additional Lab and Data: Lab Results Assess/Plan/Problems-Billing Assessment: 35 yo F active IVDU p/w intractable N/V after injection of substance thought to be heroin, but more likely suboxone or other opiate agonist. - Patient Problems (1) Heroin abuse Current Visit: Yes Status: Chronic Priority: High Code(s): F11.10 - OPIOID ABUSE, UNCOMPLICATED SNOMED Code(s): 249412977 Comment: 1) Patient tolerant of both benzos and opiates. 2) Pain treatment complicated by tolerance 3) Patient motivated to have detox and rehab due to CPS involvement. 4) Plan on direct to rehab transfer (2) Abdominal pain Current Visit: Yes Status: Acute Priority: High Code(s): R10.9 - UNSPECIFIED ABDOMINAL PAIN SNOMED Code(s): 12289567 Comment: 1) discussed CT abdomen/pelvis results with patient, no findings 2) Differential includes factitious disorder, somatization, mesenteric adenitis , withdrawal from opiates 3) suspect related to unintention ingestion of opiate antagonist like naltrexone or partial agonist/antagonist such as buprenorphine (3) Anxiety Current Visit: No Status: Chronic Priority: Medium Code(s): F41.9 - ANXIETY DISORDER, UNSPECIFIED SNOMED Code(s): 66304260 Comment: - changed to PO Xanax as used outpatient. Status and Disposition: plan for discharge to rehab when bed available
[2016-08-26] MEDS: ALPRAZolam TAB* 0.5 MG PO PRN (20:08)
[2016-08-26] MEDS: Zolpidem TAB* 10 MG PO PRN (20:39)
[2016-08-27] MEDS: oxyCODONE TAB* 5 MG TAB PO PRN ×4 (00:04→21:15)
[2016-08-27] MEDS: ALPRAZolam TAB* 0.5 MG PO PRN ×5 (00:05→18:11)
[2016-08-27] MEDS: Morphine INJ* 2 MG/ML 1 ML SYRINGE IV PRN ×2 (04:13→12:10)
[2016-08-27] MEDS: cloNIDine TAB* 0.1 MG PO SCH ×3 (08:00→22:34)
[2016-08-27] MEDS: amLODIPine TAB* 5 MG PO SCH (08:00)
[2016-08-27] MEDS: Metoclopramide IV* 5 MG/ML 2 ML VIAL IV SLOW PU PRN (10:42)
--- NOTE | 2016-08-27 13:50 | PN ---
Subjective Date of Service: 08/27/16 Interval History: CC: overdose, abdominal pain Pt is still c/o severe abdominal pain but is found sitting in the garcia initially then sitting up in bed drinking a pepsi. She states she is having severe cramps. She states she has had several loose BMs today. She denies any SOB. She is concerned that an abscess may be forming on the dorsum of her L hand. She states it has become more red and painful. Family History: Unchanged from Admission Social History: Unchanged from Admission Past Medical History: Unchanged from Admission Objective Active Medications: Acetaminophen (Tylenol Tab*) 650 mg PO Q4H PRN PRN Reason: FEVER/PAIN Last Admin: 08/25/16 17:40 Dose: 650 mg Albuterol (Ventolin Hfa Inhaler*) 2 puff INH Q4H PRN PRN Reason: SOB/WHEEZING Last Admin: 08/25/16 10:11 Dose: 2 puff Alprazolam (Xanax Tab*) 1 mg PO Q6H PRN PRN Reason: ANXIETY Amlodipine Besylate (Norvasc Tab*) 10 mg PO DAILY [facility] Last Admin: 08/27/16 08:00 Dose: 10 mg Clonidine HCl (Catapres Tab*) 0.1 mg PO TID [facility] Last Admin: 08/27/16 12:10 Dose: 0.1 mg Metoclopramide HCl (Reglan Iv*) 10 mg IV SLOW PU Q6H PRN PRN Reason: NAUSEA Last Admin: 08/27/16 10:42 Dose: 10 mg Ondansetron HCl (Zofran Inj*) 4 mg IV Q4H PRN PRN Reason: NAUSEA/VOMITING Last Admin: 08/26/16 18:34 Dose: 4 mg Oxycodone HCl (Roxycodone Tab*) 15 mg PO Q6H PRN PRN Reason: PAIN - MODERATE Simethicone (Mylicon*) 80 mg PO Q6H PRN PRN Reason: gas Last Admin: 08/26/16 23:34 Dose: 80 mg Zolpidem Tartrate (Ambien Tab*) 10 mg PO BEDTIME PRN PRN Reason: INSOMNIA Last Admin: 08/26/16 20:39 Dose: 10 mg Vital Signs 08/26/16 08/26/16 08/26/16 15:28 15:59 16:56 Temperature 98.2 F Pulse Rate 85 Respiratory 16 18 Rate Blood Pressure 121/70 (mmHg) O2 Sat by Pulse 100 Oximetry 08/26/16 08/26/16 08/26/16 19:51 19:54 20:08 Temperature 98.1 F Pulse Rate 84 Respiratory 16 16 Rate Blood Pressure 138/85 (mmHg) O2 Sat by Pulse 100 Oximetry 08/26/16 08/26/16 08/27/16 21:08 23:23 00:04 Temperature 98.0 F Pulse Rate 93 Respiratory 16 16 18 Rate Blood Pressure 145/84 (mmHg) O2 Sat by Pulse 100 Oximetry 08/27/16 08/27/16 08/27/16 00:05 02:04 03:18 Temperature 97.7 F Pulse Rate 78 Respiratory 18 18 16 Rate Blood Pressure 112/75 (mmHg) O2 Sat by Pulse 100 Oximetry 08/27/16 08/27/16 08/27/16 04:12 04:13 05:13 Temperature Pulse Rate Respiratory 18 18 16 Rate Blood Pressure (mmHg) O2 Sat by Pulse Oximetry 08/27/16 08/27/16 08/27/16 07:51 08:00 08:36 Temperature 97.7 F Pulse Rate 86 Respiratory 17 18 20 Rate Blood Pressure 138/82 (mmHg) O2 Sat by Pulse 100 Oximetry 08/27/16 08/27/16 08/27/16 09:50 12:10 13:10 Temperature Pulse Rate Respiratory 18 18 20 Rate Blood Pressure (mmHg) O2 Sat by Pulse Oximetry Oxygen Devices in Use Now: None Appearance: Young female who appears older than her stated age sitting in a chair in the garcia, NAD Eyes: No Scleral Icterus Ears/Nose/Mouth/Throat: Mucous Membranes Moist Respiratory: Symmetrical Chest Expansion and Respiratory Effort, Clear to Auscultation Cardiovascular: NL Sounds; No Murmurs; No JVD, RRR, No Edema Abdominal: - - BS hypoactive, soft, ND, pt cries out in pain with light palpation of the abdomen though pt does not otherwise appear to be in pain Extremities: No Clubbing, Cyanosis Skin: - - numerous scars and tract falcon, dorsum of L hand with small eraser sized area of possible fluctuance, slightly erythematous Neurological: Alert and Oriented x 3 Result Diagrams: 08/24/16 04:40 08/24/16 11:46 Additional Lab and Data: Lab Results Assess/Plan/Problems-Billing Ms Lehman is a 35 yo F active IVDU p/w intractable N/V and abdominal pain after injection of a substance thought to be heroin. - Patient Problems (1) Abscess of left hand Current Visit: Yes Status: Acute Code(s): L02.512 - CUTANEOUS ABSCESS OF LEFT HAND SNOMED Code(s): 8870301 Comment: The patient appears to be developing an abscess on the dorsum of the L hand. Will get CBC now, check US to see is there is a drainable collection. Start cefazolin. (2) Abdominal pain Current Visit: Yes Status: Acute Code(s): R10.9 - UNSPECIFIED ABDOMINAL PAIN SNOMED Code(s): 82486690 Comment: Pt states abdominal pain is no better. Change oxycodone to 15mg q6hr prn and begin taper tomorrow-I discussed this with the patient today. Stop IV morphine. I agree that the pain is likely related to whatever she injected and led to the N/V-likely opiate antagonist. (3) Nausea & vomiting Current Visit: Yes Status: Acute Code(s): R11.2 - NAUSEA WITH VOMITING, UNSPECIFIED SNOMED Code(s): 52626815 Comment: Pt is eating ice cream and drinking pepsi without any difficulty. Continue antiemetics. (4) Heroin abuse Current Visit: Yes Status: Chronic Code(s): F11.10 - OPIOID ABUSE, UNCOMPLICATED SNOMED Code(s): 604920600 Comment: Will try to wean down amount/frequency of benzos/opiates. Unclear if she will need to be off all prior to going to rehab. Plan si for pt to go directly to rehab from [facility]. (5) Hypertension Current Visit: Yes Status: Chronic Code(s): I10 - ESSENTIAL (PRIMARY) HYPERTENSION SNOMED Code(s): 24781773 Comment: BP is under fair control. Continue amlodipine and clonidine. (6) Anxiety Current Visit: Yes Status: Chronic Code(s): F41.9 - ANXIETY DISORDER, UNSPECIFIED SNOMED Code(s): 53264044 Comment: Continue prn xanax but decrease frequency to q6hr. (7) DVT prophylaxis Current Visit: Yes Status: Acute Code(s): UDM7616 - SNOMED Code(s): 664775116 Comment: ambulation (8) Full code status Current Visit: Yes Status: Acute Code(s): Z78.9 - OTHER SPECIFIED HEALTH STATUS SNOMED Code(s): 931753259 Status and Disposition: .
--- NOTE | 2016-08-27 14:23 | RAD ---
HISTORY: Left hand, evaluate for abscess, pain and redness of left hand COMPARISONS: None TECHNIQUE: Multiple transverse and longitudinal ultrasound images were obtained of the area of palpable abnormality of the left hand using grayscale and color Doppler imaging FINDINGS: There is a subcutaneous loculated fluid collection measuring 1.3 x 1 x 0.4 cm in size with mild hyperemia and edema of the adjacent soft tissues IMPRESSION: LOCULATED FLUID COLLECTION CONSISTENT WITH AN ABSCESS IN THE AREA OF CLINICAL ABNORMALITY IN THE LEFT HAND MEASURING UP TO 1.3 CM.
[2016-08-27] MEDS: Albuterol HFA INHALER* 8 gm MDI INH PRN ×2 (14:55→18:34)
[2016-08-27] MEDS: Simethicone CHEW TAB* 80 MG PO PRN (14:55)
[2016-08-27] MEDS: ceFAZolin VIAL(*) 1 GM in NS 0.9% 50 ML* 50 ML IVPB SCH ×2 (14:55→22:31)
[2016-08-27 15:18] LABS: Hematocrit 37 % (35-47); Hemoglobin 12.1 g/dl (12.0-16.0); Mean Corpuscular HGB Conc 33 g/dl (31-36); Mean Corpuscular Hemoglobin 27 pg (27-31); Mean Corpuscular Volume 81 fL (80-97); Mean Platelet Volume 7 um3 (7.4-10.4); Red Blood Count 4.56 10^6/ul (4.0-5.4); Red Cell Distribution Width 14 % (10.5-15); White Blood Count 10.2 10^3/ul (3.5-10.8)
[2016-08-27] MEDS ORDERED: Vancomycin per Pharmacy* NOTE FOLLOW UP PRN (19:54)
[2016-08-27] MEDS ORDERED: Vancomycin(*) 1,000 MG in NS 0.9% 250 ML* 250 ML IVPB SCH (20:00)
[2016-08-27] MEDS: Vancomycin(*) 1,000 MG in NS 0.9% 250 ML* 250 ML IVPB SCH (20:38)
[2016-08-27] MEDS ORDERED: diPHENhydraMINE PO* 50 MG PO PRN (22:04)
[2016-08-27] MEDS ORDERED: diPHENhydraMINE IV* 50 MG/ML 1 ml VIAL (BENADRYL) IV PRN (22:04)
[2016-08-28] MEDS: oxyCODONE TAB* 5 MG TAB PO PRN ×4 (03:10→21:51)
[2016-08-28] MEDS: ceFAZolin VIAL(*) 1 GM in NS 0.9% 50 ML* 50 ML IVPB SCH ×4 (03:10→20:26)
[2016-08-28] MEDS: Zolpidem TAB* 10 MG PO PRN ×2 (03:11→22:19)
[2016-08-28] MEDS: Vancomycin(*) 1,000 MG in NS 0.9% 250 ML* 250 ML IVPB SCH (06:21)
[2016-08-28] MEDS: ALPRAZolam TAB* 0.5 MG PO PRN ×3 (07:46→20:28)
[2016-08-28] MEDS: amLODIPine TAB* 5 MG PO SCH (07:46)
[2016-08-28] MEDS: cloNIDine TAB* 0.1 MG PO SCH ×3 (07:46→20:28)
--- NOTE | 2016-08-28 11:32 | PN ---
Subjective Date of Service: 08/28/16 Interval History: Pt is feeling poorly. She states she is still having severe pain in her abdomen and having diarrhea. She states she has not been able to eat/drink anything in several days though nursing reports she has ordered cheeseburger and onion rings for lunch and dinner. I witnessed her drinking a can of pepsi yesterday. She requests that I change the frequency of her oxycodone administration. Family History: Unchanged from Admission Social History: Unchanged from Admission Past Medical History: Unchanged from Admission Objective Active Medications: Acetaminophen (Tylenol Tab*) 650 mg PO Q4H PRN PRN Reason: FEVER/PAIN Last Admin: 08/25/16 17:40 Dose: 650 mg Albuterol (Ventolin Hfa Inhaler*) 2 puff INH Q4H PRN PRN Reason: SOB/WHEEZING Last Admin: 08/27/16 18:34 Dose: 2 puff Alprazolam (Xanax Tab*) 1 mg PO Q6H PRN PRN Reason: ANXIETY Last Admin: 08/28/16 07:46 Dose: 1 mg Amlodipine Besylate (Norvasc Tab*) 10 mg PO DAILY [facility] Last Admin: 08/28/16 07:46 Dose: 10 mg Clonidine HCl (Catapres Tab*) 0.1 mg PO TID [facility] Last Admin: 08/28/16 07:46 Dose: 0.1 mg Cefazolin Sodium 1 gm/ Sodium (Chloride) 50 mls @ 200 mls/hr IVPB Q6H [facility] Last Admin: 08/28/16 07:46 Dose: 200 mls/hr Metoclopramide HCl (Reglan Iv*) 10 mg IV SLOW PU Q6H PRN PRN Reason: NAUSEA Last Admin: 08/27/16 10:42 Dose: 10 mg Ondansetron HCl (Zofran Inj*) 4 mg IV Q4H PRN PRN Reason: NAUSEA/VOMITING Last Admin: 08/26/16 18:34 Dose: 4 mg Oxycodone HCl (Roxycodone Tab*) 15 mg PO Q6H PRN PRN Reason: PAIN - MODERATE Last Admin: 08/28/16 09:36 Dose: 15 mg Pharmacy Profile Note (Vancomycin Trough Check) 1 note FOLLOW UP 0600 ONE Stop: 08/29/16 06:01 Simethicone (Mylicon*) 80 mg PO Q6H PRN PRN Reason: gas Last Admin: 08/27/16 14:55 Dose: 80 mg Zolpidem Tartrate (Ambien Tab*) 10 mg PO BEDTIME PRN PRN Reason: INSOMNIA Last Admin: 08/28/16 03:11 Dose: 10 mg Vital Signs 08/27/16 08/27/16 08/27/16 12:10 13:10 14:55 Temperature Pulse Rate Respiratory 18 20 18 Rate Blood Pressure (mmHg) O2 Sat by Pulse Oximetry 08/27/16 08/27/16 08/27/16 15:16 18:11 19:36 Temperature 97.9 F 98.5 F Pulse Rate 80 89 Respiratory 20 Rate Blood Pressure 129/79 123/67 (mmHg) O2 Sat by Pulse 100 100 Oximetry 08/27/16 08/27/16 08/27/16 20:00 21:15 21:27 Temperature 98.2 F Pulse Rate 79 Respiratory 21 20 Rate Blood Pressure 123/71 (mmHg) O2 Sat by Pulse 100 Oximetry 08/27/16 08/27/16 08/27/16 22:26 23:15 23:17 Temperature 97.6 F Pulse Rate 75 Respiratory 20 20 17 Rate Blood Pressure 107/52 (mmHg) O2 Sat by Pulse 100 Oximetry 08/27/16 08/28/16 08/28/16 23:26 03:06 03:10 Temperature 97.4 F Pulse Rate 76 Respiratory 20 16 20 Rate Blood Pressure 109/60 (mmHg) O2 Sat by Pulse 100 Oximetry 08/28/16 08/28/16 08/28/16 05:10 07:36 07:46 Temperature 98.2 F Pulse Rate 76 Respiratory 16 16 18 Rate Blood Pressure 118/66 (mmHg) O2 Sat by Pulse 100 Oximetry 08/28/16 08/28/16 08:30 09:36 Temperature Pulse Rate Respiratory 20 20 Rate Blood Pressure (mmHg) O2 Sat by Pulse Oximetry Oxygen Devices in Use Now: None Appearance: Young female lying in bed, NAD Eyes: No Scleral Icterus Ears/Nose/Mouth/Throat: Mucous Membranes Moist Respiratory: Symmetrical Chest Expansion and Respiratory Effort, Clear to Auscultation Cardiovascular: NL Sounds; No Murmurs; No JVD, RRR, No Edema Abdominal: - - BS+ soft, ND, pt c/o pain diffusely with light palpation Extremities: No Clubbing, Cyanosis Skin: - - no further erythema of the dorsum of the L hand, small ~1cm fluctuant abscess noted. Neurological: Alert and Oriented x 3 Result Diagrams: 08/27/16 14:46 08/24/16 11:46 Additional Lab and Data: Lab Results Assess/Plan/Problems-Billing Ms Lehman is a 35 yo F active IVDU p/w intractable N/V and abdominal pain after injection of a substance thought to be heroin. - Patient Problems (1) Abscess of left hand Current Visit: Yes Status: Acute Code(s): L02.512 - CUTANEOUS ABSCESS OF LEFT HAND SNOMED Code(s): 8428891 Comment: US yesterday shows a 1.3cm abscess. WBC count has normalized and the erythema has gone. Will continue cefazolin. Will ask for ortho to see her for I&D. Will need to send culture if I&D possible. (2) Abdominal pain Current Visit: Yes Status: Acute Code(s): R10.9 - UNSPECIFIED ABDOMINAL PAIN SNOMED Code(s): 92648269 Comment: Pt states abdominal pain is no better-she has been eating ice cream (had 2 containers today). Change oxycodone to 15mg q6hr prn. The patient is going to be going to a detox program not rehab so she can leave here on narcotics. I explained to the patient I will not go up on the dose or change the frequency of the oxycodone. The patient's report of pain seems very out of proportion to her clinical indicators of pain. (3) Nausea & vomiting Current Visit: Yes Status: Acute Code(s): R11.2 - NAUSEA WITH VOMITING, UNSPECIFIED SNOMED Code(s): 92992853 Comment: Pt is eating ice cream and drinking pepsi without any difficulty. Will see how she does with lunch/dinner which are foods that she requested. Continue antiemetics. (4) Heroin abuse Current Visit: Yes Status: Chronic Code(s): F11.10 - OPIOID ABUSE, UNCOMPLICATED SNOMED Code(s): 957107266 Comment: The patient has a phone interview with Steffanie today. This is a detox program not rehab. She can leave here on narcotics but will be detoxed at the program. (5) Hypertension Current Visit: Yes Status: Chronic Code(s): I10 - ESSENTIAL (PRIMARY) HYPERTENSION SNOMED Code(s): 21267524 Comment: BP is under fair control. Continue amlodipine and clonidine. (6) Anxiety Current Visit: Yes Status: Chronic Code(s): F41.9 - ANXIETY DISORDER, UNSPECIFIED SNOMED Code(s): 18623241 Comment: Continue prn xanax. (7) DVT prophylaxis Current Visit: Yes Status: Acute Code(s): PHP2054 - SNOMED Code(s): 252312744 Comment: ambulation (8) Full code status Current Visit: Yes Status: Acute Code(s): Z78.9 - OTHER SPECIFIED HEALTH STATUS SNOMED Code(s): 353894206 Status and Disposition: .
[2016-08-28] MEDS: Acetaminophen TAB* 325 MG PO PRN (13:18)
--- NOTE | 2016-08-28 13:32 | RAD ---
INDICATION: Left hand injury COMPARISON: None TECHNIQUE: AP, lateral, and oblique views were obtained. FINDINGS: There are no acute bony findings. There is diffuse soft tissue swelling over the dorsum of the hand. There is no radiopaque foreign body. IMPRESSION: DIFFUSE SOFT TISSUE SWELLING OVER THE DORSUM OF THE HAND.
--- NOTE | 2016-08-28 13:32 | PN ---
Progress Note - Progress Note Note: Full note dictated. She has dorsal left hand abscesses secondary to IV drug use. I performed a bedside I&D. Wounds are packed. Please start warm soapy water soaks twice daily (order has been placed). If packing does not come out during tonight's soak then please remove in the morning. Continue cefazolin ( had reaction to vancomycin last night). Follow up culture that was sent. Follow up with me in one week in my office if discharged.
--- NOTE | 2016-08-28 15:27 | CONS ---
CONSULTATION NOTE: DATE OF CONSULT: 08/28/16 CHIEF COMPLAINT: Left hand infection. HISTORY OF PRESENT ILLNESS: Zaynab is a 35-year-old right-hand dominant female who is an active IV drug user. She came to the hospital on August 24 with symptoms related to her IV drug use including nausea, vomiting, and agitation. She has been appropriately treated here in the hospital. She states she has actively been injecting in the left hand. She has been treated earlier this year for a foot infection related to the IV drug use. Over the last couple of days, she has noticed an enlarging lump on the dorsum of the left hand. Over the last day, there has been a second lump developed just a bit after the site of the first lump. She denies any fevers or chills or systemic symptoms but the area on the dorsum of the dorsum of the left hand is definitely becoming more painful and sensitive. She states it is moderate in severity. It is worse when she touches the area or when she moves the hand and wrist, it is relieved by rest. She denies any numbness or tingling in the fingers. She denies noticing any lumps or bumps anywhere else on her body. PAST MEDICAL HISTORY: Active IV drug use, resolved left foot infection in April 2016 secondary to MSSA, asthma, hypertension, history of gestational diabetes, history of head trauma in 2013, anxiety, depression. PAST SURGICAL HISTORY: She had an I and D on the left foot by Dr. Foss. She has had no surgeries on the left hand. MEDICATIONS: Her home medications include: 1. Xanax. 2. Citalopram. 3. Albuterol. 4. Clonidine. 5. Norvasc. Here in the hospital, she has received some vancomycin. ALLERGIES: KETOROLAC and TRAMADOL. FAMILY HISTORY: Noncontributory. SOCIAL HISTORY: As above. The history of IV drug use. She denies alcohol or tobacco use. She denies other drug use other than the heroin. She is currently living independently. REVIEW OF SYSTEMS: As above. Negative for fevers, chills or systemic symptoms. Left hand pain. No further pain in the left foot related to the infection in April 2016. PHYSICAL EXAM: Vitals: She has been afebrile throughout this admission. Vital signs have been stable throughout the admission. General: Awake, alert and oriented, in no apparent distress. She is slightly anxious today. Left upper extremity: She has multiple skin falcon and scars related to her injections. The motion in the shoulder, elbow, and also the fingers and wrist is all full and essentially painless. She has over the dorsum of the left hand near the proximal aspect in the midline, a 1 to 2 cm abscess. It is tender to the touch. There is slight warmth overlying the abscess. There is no streaking proximally. Just about a 1 cm radial to that, there is another developing abscess, it is about 1 cm in length and about a 0.5 cm wide. It is just adjacent to another injection site. There is no significant erythema over the dorsum of the hand. Again, she has full active and passive motion in all the joints with minimal discomfort. Right upper extremity: This again shows multiple skin lesions in injection sites. There is full range of motion in all the joints without any pain. There is good strength. No atrophy. No laxity. Bilateral lower extremities: Again, there is good alignment. There is full motion in all of the joints without any discomfort. I do not see any other abscesses. IMAGING: Ultrasound of the left dorsal hand performed yesterday shows a loculated fluid collection consistent with abscess measuring up to 1.3 cm. X-rays are pending and were ordered by me. IMPRESSION: Left dorsal hand abscesses secondary to IV drug use. On full musculoskeletal exam of all 4 extremities, I do not see any evidence of any septic joints or any other areas of involvement other than the dorsum of the hand. PLAN: I will follow up her x-rays just to make sure there is nothing going on with the bone more deeply, but this is quite unlikely, and I am sure that will be negative. I went ahead and performed an I and D at the bedside of the 2 involved areas. Cultures were sent. I will communicate with Dr. Curran, her admitting physician and report to her the findings of my I and D and she can treat with appropriate antibiotics. I would like to see Zaynab back in my office in a week to see how this is progressing. I understand she is being discharged soon to the detox facility. Again, I would like to see her in my office in about a week, the number is [phone]. DESCRIPTION OF PROCEDURE: Informed consent was obtained and then the area over the left dorsal hand was cleansed with Betadine. I then injected 1% lidocaine without epinephrine in the area surrounding the abscesses. After about 5 minutes, the area was nicely anesthetized. Using sterile technique, I used the #15 blade to make a 1 cm longitudinal incision directly overlying the larger subcutaneous abscess. Ta purulence was encountered. Again, I took culture and handed this off to the nurse using sterile technique. I then expressed remainder of the purulence. The scissors were used to bluntly make sure there were not any septations and to break all of the septations apart. After I had drained that first abscess, I then made an another 1 cm incision over the second area of abscess. This was again opened up until purulence was encountered and fully expressed. I broke up all the septations. There was actually a little communicating tract underneath the skin connecting the 2 areas. Once I felt like I had adequately opened the area, I went ahead and had her soak the hand in a warm soapy watery soak for 15 minutes. I then took some 0.25 inch iodoform packing and packed the wound. The wound was then dressed with Xeroform, sterile 4x4s and an Marlon bandage. She tolerated this very well. [id number]/[facility] #: [id number] [facility]
[2016-08-29] MEDS: ceFAZolin VIAL(*) 1 GM in NS 0.9% 50 ML* 50 ML IVPB SCH ×2 (02:57→09:28)
[2016-08-29] MEDS: ALPRAZolam TAB* 0.5 MG PO PRN ×4 (03:02→21:55)
[2016-08-29] MEDS: Albuterol HFA INHALER* 8 gm MDI INH PRN (03:12)
[2016-08-29] MEDS: oxyCODONE TAB* 5 MG TAB PO PRN ×4 (04:00→21:56)
[2016-08-29] MEDS ORDERED: Vancomycin Trough Check NOTE FOLLOW UP ONE (06:00)
[2016-08-29] MEDS: cloNIDine TAB* 0.1 MG PO SCH ×3 (09:31→20:27)
[2016-08-29] MEDS: amLODIPine TAB* 5 MG PO SCH (09:31)
--- NOTE | 2016-08-29 10:45 | PN ---
Subjective Date of Service: 08/29/16 Interval History: Pt c/o aching in her L hand. She is eating a breakfast sandwich with fried egg and homefries. She is interested in getting to the detox program as soon as possible. Family History: Unchanged from Admission Social History: Unchanged from Admission Past Medical History: Unchanged from Admission Objective Active Medications: Acetaminophen (Tylenol Tab*) 650 mg PO Q4H PRN PRN Reason: FEVER/PAIN Last Admin: 08/28/16 13:18 Dose: 650 mg Albuterol (Ventolin Hfa Inhaler*) 2 puff INH Q4H PRN PRN Reason: SOB/WHEEZING Last Admin: 08/29/16 03:12 Dose: 2 puff Alprazolam (Xanax Tab*) 1 mg PO Q6H PRN PRN Reason: ANXIETY Last Admin: 08/29/16 09:31 Dose: 1 mg Amlodipine Besylate (Norvasc Tab*) 10 mg PO DAILY JEREMY Last Admin: 08/29/16 09:31 Dose: Not Given Clonidine HCl (Catapres Tab*) 0.1 mg PO TID JEREMY Last Admin: 08/29/16 09:31 Dose: Not Given Cefazolin Sodium 1 gm/ Sodium (Chloride) 50 mls @ 200 mls/hr IVPB Q6H JEREMY Last Admin: 08/29/16 09:28 Dose: 200 mls/hr Metoclopramide HCl (Reglan Iv*) 10 mg IV SLOW PU Q6H PRN PRN Reason: NAUSEA Last Admin: 08/27/16 10:42 Dose: 10 mg Ondansetron HCl (Zofran Inj*) 4 mg IV Q4H PRN PRN Reason: NAUSEA/VOMITING Last Admin: 08/26/16 18:34 Dose: 4 mg Oxycodone HCl (Roxycodone Tab*) 15 mg PO Q6H PRN PRN Reason: PAIN - MODERATE Last Admin: 08/29/16 09:32 Dose: 15 mg Simethicone (Mylicon*) 80 mg PO Q6H PRN PRN Reason: gas Last Admin: 08/27/16 14:55 Dose: 80 mg Zolpidem Tartrate (Ambien Tab*) 10 mg PO BEDTIME PRN PRN Reason: INSOMNIA Last Admin: 08/28/16 22:19 Dose: 10 mg Vital Signs 08/28/16 08/28/16 08/28/16 11:36 14:11 15:34 Temperature Pulse Rate Respiratory 20 20 18 Rate Blood Pressure (mmHg) O2 Sat by Pulse Oximetry 08/28/16 08/28/16 08/28/16 15:57 19:52 19:56 Temperature 98.2 F 97.9 F Pulse Rate 81 83 Respiratory 17 16 Rate Blood Pressure 96/83 104/65 (mmHg) O2 Sat by Pulse 100 100 Oximetry 08/28/16 08/28/16 08/28/16 20:28 21:51 22:28 Temperature Pulse Rate Respiratory 17 18 18 Rate Blood Pressure (mmHg) O2 Sat by Pulse Oximetry 08/28/16 08/28/16 08/29/16 23:51 23:54 03:02 Temperature 98.0 F Pulse Rate 76 Respiratory 16 17 Rate Blood Pressure 104/56 (mmHg) O2 Sat by Pulse 100 Oximetry 08/29/16 08/29/16 08/29/16 03:36 04:00 05:02 Temperature 97.6 F Pulse Rate 72 Respiratory 16 17 15 Rate Blood Pressure 111/59 (mmHg) O2 Sat by Pulse 100 Oximetry 08/29/16 08/29/16 08/29/16 06:00 07:54 09:31 Temperature 97.5 F Pulse Rate 76 Respiratory 15 16 18 Rate Blood Pressure 94/57 (mmHg) O2 Sat by Pulse 100 Oximetry 08/29/16 09:32 Temperature Pulse Rate Respiratory 18 Rate Blood Pressure (mmHg) O2 Sat by Pulse Oximetry Oxygen Devices in Use Now: None Appearance: Young female sitting up in bed, NAD Eyes: No Scleral Icterus Ears/Nose/Mouth/Throat: Mucous Membranes Moist Respiratory: Symmetrical Chest Expansion and Respiratory Effort, Clear to Auscultation Cardiovascular: NL Sounds; No Murmurs; No JVD, RRR, No Edema Abdominal: NL Sounds; No Tenderness; No Distention Extremities: No Clubbing, Cyanosis Skin: No Rash or Ulcers, No Nodules or Sclerosis, - - L hand wrapped in gauze and KYM wrap-not removed at this time Neurological: Alert and Oriented x 3 Result Diagrams: 08/27/16 14:46 08/24/16 11:46 Additional Lab and Data: Lab Results Microbiology and Other Data: Microbiology 08/28/16 13:00 Skin and Soft Tissue MRSA/MSSA (PCR - Final Hand Left Mrsa Negative S.aureus Positive Gram Stain - Final Assess/Plan/Problems-Billing Ms Lehman is a 35 yo F active IVDU p/w intractable N/V and abdominal pain after injection of a substance thought to be heroin. - Patient Problems (1) Abscess of left hand Current Visit: Yes Status: Acute Code(s): L02.512 - CUTANEOUS ABSCESS OF LEFT HAND SNOMED Code(s): 9397128 Comment: Ortho I&Ded the small abscess yesterday. PCR shows that it is positive for MSSA. Will stop cefazolin and continue on keflex for another 5 days. Follow up with Dr. Lowery in his clinic in 1 week. (2) Abdominal pain Current Visit: Yes Status: Acute Code(s): R10.9 - UNSPECIFIED ABDOMINAL PAIN SNOMED Code(s): 79095118 Comment: Today pt has no c/o pain. She is eating a diet high in fat without any difficulty. Her abdominal pain should not hold up her d/c to detox. (3) Nausea & vomiting Current Visit: Yes Status: Acute Code(s): R11.2 - NAUSEA WITH VOMITING, UNSPECIFIED SNOMED Code(s): 50746525 Comment: Resolved. (4) Heroin abuse Current Visit: Yes Status: Chronic Code(s): F11.10 - OPIOID ABUSE, UNCOMPLICATED SNOMED Code(s): 568842683 Comment: Pt has been accepted pending insurance approval. Hopefully she can be d/felipa there today. (5) Hypertension Current Visit: Yes Status: Chronic Code(s): I10 - ESSENTIAL (PRIMARY) HYPERTENSION SNOMED Code(s): 80972277 Comment: BP has been trending down over the course of the last 4 days. Will stop the amlodipine and continue clonidine. Monitor the BP. (6) Anxiety Current Visit: Yes Status: Chronic Code(s): F41.9 - ANXIETY DISORDER, UNSPECIFIED SNOMED Code(s): 05720768 Comment: Continue prn xanax. (7) DVT prophylaxis Current Visit: Yes Status: Acute Code(s): BTW6662 - SNOMED Code(s): 972146039 Comment: ambulation (8) Full code status Current Visit: Yes Status: Acute Code(s): Z78.9 - OTHER SPECIFIED HEALTH STATUS SNOMED Code(s): 386456337 Status and Disposition: .
[2016-08-29] MEDS: Cephalexin CAP* 500 MG PO SCH ×3 (13:36→20:27)
[2016-08-29] MEDS: Metoclopramide IV* 5 MG/ML 2 ML VIAL IV SLOW PU PRN (20:28)
[2016-08-29] MEDS: Zolpidem TAB* 10 MG PO PRN (22:54)
[2016-08-30] MEDS: ALPRAZolam TAB* 0.5 MG PO PRN ×2 (04:55→11:17)
[2016-08-30] MEDS: oxyCODONE TAB* 5 MG TAB PO PRN ×2 (04:56→11:18)
--- NOTE | 2016-08-30 08:43 | PN ---
Subjective Date of Service: 08/30/16 Interval History: Patient seen and examined at bedside. Patient states that she continues to have back pain and left hand pain. Denies fever, chills, shortness of breath, chest discomfort, or vomiting. Pt states that she also continues to have nausea and diarrhea. Pt states that she is afraid to go home without medications to assist with her heroine use, she was encouraged to go to the [facility] [place] once she is discharged. Social Work is also working on getting the patient set up with an outpatient appointment with Dr. Stark. Pt is requesting prescription refills on her Clonidine, albuterol, and Ambien. Family History: Unchanged from Admission Social History: Unchanged from Admission Past Medical History: Unchanged from Admission Objective Active Medications: Acetaminophen (Tylenol Tab*) 650 mg PO Q4H PRN Reason: FEVER/PAIN Albuterol (Ventolin Hfa Inhaler*) 2 puff INH Q4H PRN Reason: SOB/WHEEZING Alprazolam (Xanax Tab*) 1 mg PO Q6H PRN Reason: ANXIETY Cephalexin HCl (Keflex Cap*) 500 mg PO QID JEREMY Clonidine HCl (Catapres Tab*) 0.1 mg PO TID JEREMY Metoclopramide HCl (Reglan Iv*) 10 mg IV SLOW PU Q6H PRN Reason: NAUSEA Ondansetron HCl (Zofran Inj*) 4 mg IV Q4H PRN Reason: NAUSEA/VOMITING Oxycodone HCl (Roxycodone Tab*) 15 mg PO Q6H PRN Reason: PAIN - MODERATE Simethicone (Mylicon*) 80 mg PO Q6H PRN Reason: gas Zolpidem Tartrate (Ambien Tab*) 10 mg PO BEDTIME PRN Reason: INSOMNIA Vital Signs 08/29/16 08/29/16 08/29/16 13:35 15:42 17:42 Temperature 98.7 F 98.2 F Pulse Rate 91 86 Respiratory 18 18 18 Rate Blood Pressure 132/74 101/73 (mmHg) O2 Sat by Pulse 100 100 Oximetry 08/29/16 08/29/16 08/29/16 19:41 20:00 21:55 Temperature 97.9 F Pulse Rate 84 Respiratory 17 16 18 Rate Blood Pressure 132/82 (mmHg) O2 Sat by Pulse 100 Oximetry 08/29/16 08/29/1608/29/17 21:56 23:53 23:55 Temperature 97.4 F Pulse Rate 81 Respiratory 18 16 16 Rate Blood Pressure 95/61 (mmHg) O2 Sat by Pulse 100 Oximetry Oxygen Devices in Use Now: None Appearance: NAD, laying in bed Eyes: No Scleral Icterus Ears/Nose/Mouth/Throat: Mucous Membranes Moist Respiratory: Symmetrical Chest Expansion and Respiratory Effort, Clear to Auscultation Cardiovascular: NL Sounds; No Murmurs; No JVD, RRR Abdominal: NL Sounds; No Tenderness; No Distention Extremities: No Edema Skin: - - Dressing to left hand clean, dry and intact Neurological: Alert and Oriented x 3, NL Muscle Strength and Tone Lines/Tubes/Other Access: Clean, Dry and Intact Peripheral IV - site benign Nutrition: Taking PO's Result Diagrams: 08/27/16 14:46 08/24/16 11:46 Additional Lab and Data: Microbiology and Other Data: Microbiology 08/28/16 13:00 Skin and Soft Tissue MRSA/MSSA (PCR - Final Hand Left Mrsa Negative S.aureus Positive Gram Stain - Final Assess/Plan/Problems-Billing Ms Lehman is a 35 yo F active IVDU p/w intractable N/V and abdominal pain after injection of a substance thought to be heroin. - Patient Problems (1) Abscess of left hand Code(s): L02.512 - CUTANEOUS ABSCESS OF LEFT HAND SNOMED Code(s): 4468784 Comment: - S/P I&D of small abscess by Ortho on 08/28. - PCR shows that it is positive for MSSA. - Continue on keflex for another 4 days. - Follow up with Dr. Lowery in his clinic in 1 week. (2) Abdominal pain Code(s): R10.9 - UNSPECIFIED ABDOMINAL PAIN SNOMED Code(s): 33257998 Comment: - Today pt has no c/o pain. - She is eating a diet high in fat without any difficulty. (3) Nausea & vomiting Code(s): R11.2 - NAUSEA WITH VOMITING, UNSPECIFIED SNOMED Code(s): 97340102 Comment: - Vomiting Resolved. - Continues to c/o nausea, but is able to eat and drink without difficulty (4) Heroin abuse Code(s): F11.10 - OPIOID ABUSE, UNCOMPLICATED SNOMED Code(s): 238320659 Comment: - Plan for Pt to go to [facility] [place] at discharge. - Social Work following. (5) Hypertension Code(s): I10 - ESSENTIAL (PRIMARY) HYPERTENSION SNOMED Code(s): 22774772 Comment: - BP has been trending down over the course of the last 4 days - Amlodipine discontinued - Continue clonidine (6) Anxiety Code(s): F41.9 - ANXIETY DISORDER, UNSPECIFIED SNOMED Code(s): 26345193 Comment: - Continue prn xanax. (7) DVT prophylaxis Code(s): IUP3836 - SNOMED Code(s): 439215673 Comment: - ambulation (8) Full code status Code(s): Z78.9 - OTHER SPECIFIED HEALTH STATUS SNOMED Code(s): 477972311 Status and Disposition: Inpatient. Stable for discharge to home today.
[2016-08-30 09:19] VITALS: BP 121/68
[2016-08-30] MEDS: cloNIDine TAB* 0.1 MG PO SCH (09:20)
[2016-08-30] MEDS: Cephalexin CAP* 500 MG PO SCH (09:20)
--- NOTE | 2016-08-30 14:10 | DS ---
DISCHARGE SUMMARY: DATE OF ADMISSION: 08/24/16 DATE OF DISCHARGE: 08/30/16 ATTENDING PHYSICIAN: Lety Curran DO *(dictated by Doris Pisano NP). PRIMARY CARE PROVIDER: None. PRIMARY DIAGNOSES: 1. MSSA left hand abscess. 2. Intractable vomiting and abdominal pain, resolved. 3. IV drug abuse. SECONDARY DIAGNOSES: 1. Hypertension. 2. Anxiety. 3. Depression. 4. Asthma. CONSULTATIONS WHILE IN THE HOSPITAL: Dr. Rocael Lowery with Orthopedic Surgery. PROCEDURES WHILE IN THE HOSPITAL: Status post incision and drainage of abscess on the dorsum of the left hand by Dr. Lowery on 08/28/16. STUDIES WHILE IN THE HOSPITAL: 1. Abdomen, pelvis CT on 08/25/16. Radiologist impression: No acute CT pathology of the abdomen or pelvis. 2. Left hand soft tissue ultrasound on 08/27/16. Radiologist impression: Loculated fluid collection consistent with an abscess in the area of clinical abnormality in the left hand measuring of 2.3 cm. 3. Left hand x-rays on 08/28/16. Radiologist impression: Diffuse soft tissue swelling over the dorsum of the hand. DISCHARGE MEDICATIONS: NEW HOME MEDICATIONS: 1. Keflex 500 mg oral four times daily. CHANGED HOME MEDICATIONS: 1. Xanax 1 mg oral every 6 hours as needed for anxiety. 2. Ambien 10 mg oral daily at bedtime as needed for insomnia. 3. Acetaminophen 650 mg oral every 4 hours as needed for fever or pain. CONTINUED HOME MEDICATIONS: 1. Naproxen 250 mg oral every 12 hours as needed for mild to moderate pain. 2. Clonidine 0.1 mg oral three times daily. 3. Albuterol HFA two puffs inhalation every 4 hours as needed for shortness of breath or wheeze. DISCONTINUED HOME MEDICATIONS: 1. Diazepam. 2. Advair Diskus. HISTORY OF PRESENT ILLNESS/HOSPITAL COURSE: Ms. Lehman is a 35-year-old female with medical history significant for active IV heroin abuse. The patient had reported that the last time she had injected, she had felt weird, tasted perfume , and started gagging. She also immediately developed abdominal pain with diarrhea and dry heaves. EMS was called, it was reported that when they arrived on the scene, the patient was alert and oriented and lying on the floor , on her side, dry heaving and talking to a friend. The patient had last used approximately 10 minutes prior to EMS arrival. No Narcan was administered. The patient was able to get up off the floor and walk to a stretcher. It was reported that the patient was agitated and had nausea and vomiting on the scene. The patient was brought to the emergency room for further evaluation of her symptoms. While in the emergency room, the patient received IV Reglan, Zofran and Phenergan. The patient noted had also recently presented to the emergency room approximately three weeks prior with abdominal cramping similar to this presentation. Hospitalists were asked to evaluate the patient for admission. While in the hospital, the patient had an abdomen, pelvis CT showing no significant findings. The patient also had concerns that she may be having an abscess forming on the dorsum of her left hand. She felt that the area had became more painful and red. She had a soft tissue ultrasound of the left hand on 08/27 showing a loculated fluid collection. The patient also had a left hand x-rays showing diffuse soft tissue swelling over the dorsum of the hand. The patient was seen in consultation by Dr. Lowery with Orthopedic Surgery on . He performed an incision and drainage of the left hand abscess. The patient had cultures showing MSSA. During her stay, she initially had leukocytosis with a white blood cell count of 13.5. The leukocytosis resolved during her stay. She also had a urine tox screen positive for urine opioids, amphetamines, benzodiazepines, cocaine, and cannabis. The patient was initially on vancomycin and transitioned to oral Keflex during her stay. The patient's vomiting and abdominal pain resolved during her stay. She continued to have mild nausea. The patient was seen in consultation by social work who assisted in setting up the patient to see the alcohol drug counselor of [facility]. Her blood pressures also ran slightly on the hypotensive side during her stay and her amlodipine was discontinued. She has been afebrile. Ms. Lehman is stable for discharge to home today. PHYSICAL EXAMINATION: Vital signs are as follows: Temperature 98.1, heart rate 87, respiratory rate 16, O2 sat 100% on room air, blood pressure 121/68. DISCHARGE PLAN: Ms. Lehman will be discharged to home. ACTIVITY: As tolerated. DIET: She will be on a regular diet. WOUND CARE: As far dressing changes to her dorsum of her left hand, she has been asked to do daily dry dressing changes. As far as the MSSA infection to her left hand, she will be continued on Keflex 500 mg oral 4 times daily for 4 more days. She should be seen in followup by Dr. Lowery. She has an appointment on Sunday, September 06 at 2 p.m. As far as the patient's IV drug use, the patient has been asked to call [facility] Drug counselor education professor for outpatient intake during walk-in hours. The patient currently does not have a primary care provider. She was discharged from the [facility]. She has been asked to call the physician referral center to get set up with a new primary care provider. She may benefit from a referral to a Suboxone clinic. This is a summarized report of a complex medical history and hospital stay. For further details, please see the entire medical record. TIME SPENT: Time for this discharge was 50 minutes and 25 minutes was spent face to face with the patient discussing discharge plans and instructions. CONDITION ON DISCHARGE: Stable. Reviewed by SERJIO DAVILA 09/01/16 [id number] CC: Rocael Lowery MD.* [id number]/[facility] #: [id number] MTDDillan
== END 2016-08-30 11:30 | disposition home or self-care (01) | DRG 952 ==
LOC: ED 04:28 → MED 09:23 → OBSVTOIN 08-25 15:14
PROVIDERS: ADMIT Internal Medicine; ATTEND Hospitalist
PROC: 0J9K0ZZ Drainage of Left Hand Subcutaneous Tissue and Fascia, Open Approach (ICD-10-PCS; principal; 2016-08-28)
DX: T40.1X1A Poisoning by heroin, accidental (unintentional), initial encounter (principal); E87.2 Acidosis; I95.9 Hypotension, unspecified; L02.512 Cutaneous abscess of left hand; B95.61 Methicillin susceptible Staphylococcus aureus infection as the cause of diseases classified elsewhere; R11.10 Vomiting, unspecified; I10 Essential (primary) hypertension; F41.9 Anxiety disorder, unspecified; R10.84 Generalized abdominal pain; F32.9 Major depressive disorder, single episode, unspecified; J45.909 Unspecified asthma, uncomplicated; F11.10 Opioid abuse, uncomplicated; E83.52 Hypercalcemia; X58.XXXA Exposure to other specified factors, initial encounter; Z79.899 Other long term (current) drug therapy; Z88.8 Allergy status to other drugs, medicaments and biological substances; Z80.8 Family history of malignant neoplasm of other organs or systems; Y92.9 Unspecified place or not applicable
CPT/HCPCS: 36415; 74177; 80048; 80053; 80202; 80307; 80320; 80329; 81003; 81015; 83605; 84702; 85025; 86140; 87070; 87077; 87086; 87186; 87205; 87640; 87641; 93005; A9270-GY; G0378; G0480; J0690; J0780; J1200; J2060; J2270; J2405; J2550; J3370; Q9967

== ENCOUNTER → 2016-09-18 10:24 | Emergency (ER) | payer OTHER ==
[~2016-09-18 10:24] MED LIST: Azithromycin TAB* 250 MG PO ONE; Cephalexin CAP* 500 MG PO ONE; HYDROmorphone* 1 MG/ML 1 ML SYR IV ONE; Iohexol 300* (CONTRAST) 10 ML SDV IV ONE; Lidocaine 2.5%/Prilocain 2.5%* 5 GM TUBE TOPICAL ONE; Metoclopramide IV* 5 MG/ML 2 ML VIAL IV ONE; NS 0.9% 1000 ML* 1,000 ML IV ONE; Ondansetron INJ* 2 MG/ML VIAL IV ONE; cefTRIAXone(*) 1 GM in NS 0.9% 50 ML* 50 ML IVPB ONE; metroNIDAZOLE TAB* 250 MG PO ONE; oxyCODONE/Acetamin 5/325 MG* TAB PO ONE
[2016-09-18 13:33] LABS: Hematocrit 39 % (35-47); Hemoglobin 12.7 g/dl (12.0-16.0); Mean Corpuscular HGB Conc 33 g/dl (31-36); Mean Corpuscular Hemoglobin 27 pg (27-31); Mean Corpuscular Volume 82 fL (80-97); Mean Platelet Volume 8 um3 (7.4-10.4); Red Blood Count 4.78 10^6/ul (4.0-5.4); Red Cell Distribution Width 15 % (10.5-15); White Blood Count 11.4 10^3/ul (3.5-10.8)
[2016-09-18 13:35] LABS: Urine Bilirubin Negative (Negative); Urine Glucose Negative (Negative); Urine Nitrite Negative (Negative)
[2016-09-18 13:46] LABS: ALT 9 U/L (7-52); Albumin 4.4 g/dL (3.2-5.2); Alkaline Phosphatase 78 U/L (34-104); BUN/Creatinine Ratio 19.6 (8-20); Blood Urea Nitrogen 10 mg/dL (6-24); CO2 Carbon Dioxide 25 mmol/L (22-32); Calcium 10.4 mg/dL (8.6-10.3); Chloride 104 mmol/L (101-111); EGFR African American 174.5 (>60); EGFR Non-African American 135.7 (>60); Globulin 3.6 g/dL (2-4); Glucose 86 mg/dL (70-100); Sodium 133 mmol/L (133-145)
[2016-09-18 13:47] LABS: Anion Gap 4 mmol/L (2-11)
--- NOTE | 2016-09-18 14:47 | RAD ---
INDICATION: Right lower quadrant pain COMPARISON: CT August 25, 2016 TECHNIQUE: Axial source images were obtained from the hemidiaphragms to the symphysis pubis following administration of oral and intravenous contrast. 91 mL Omnipaque 300 was utilized. Coronal and sagittal reconstructed images were acquired. Lung bases: The lung bases are clear. Liver: The liver is normal in size. There are no masses. There is no ductal dilatation. Gallbladder: There are no calcified gallstones. There is no evidence of wall thickening or pericholecystic fluid. Spleen: The spleen is normal in size. There are no masses. Pancreas: There is no focal pancreatic mass or ductal dilatation. Adrenal glands: There is no evidence of adrenal mass. Kidneys: The kidneys are normal in size and position. There are prompt nephrograms and there is prompt excretion bilaterally. There are no renal parenchymal masses. There is no evidence of nephrolithiasis. Adenopathy: There is no evidence of adenopathy by size criteria. Fluid collections: There are no free or localized fluid collections. Vessels:There are no significant atherosclerotic changes involving the aorta. There is no focal aneurysm. The iliac vessels are normal in caliber. The IVC appears normal. GI tract: There are no acute CT bowel findings. There is no obstruction. The stomach and small bowel appear normal. The lower GI tract is normal. The cecum, ileocecal valve, and terminal ileum appear normal. The appendix is visualized and appear normal. Pelvic organs: The endometrial stripe appears mildly prominent and/or there may be a small amount of endometrial fluid. There is no adnexal mass. Bladder: There are no bladder masses. Abdominal and pelvic soft tissues: Small fat-containing periumbilical hernia. Osseous structures: There are no acute osseous findings. Other: None IMPRESSION: THE ENDOMETRIAL STRIPE IS MILDLY PROMINENT AND/OR THERE MAY BE A SMALL AMOUNT OF ENDOMETRIAL FLUID. THERE IS NO MASS OR INFLAMMATORY CHANGE. THE APPENDIX APPEARS NORMAL. INCIDENTAL SMALL PERIUMBILICAL HERNIA.
--- NOTE | 2016-09-18 17:05 | RAD ---
INDICATION: Evaluate for tubo-ovarian abscess. PID. COMPARISON: CT September 18, 2016 TECHNIQUE: Longitudinal and transverse transvaginal scans of the pelvis were obtained. FINDINGS: Uterus: The uterus is normal in size. There are no focal masses. The uterus measures 9.3 x 4.0 x 4.7 cm. Endometrial thickness: The endometrium is thickened and heterogeneous. There is cystic change within the endometrial cavity. The endometrial thickness is 1.4 cm. Free fluid: There is no significant free fluid . Ovaries: The ovaries are normal in size. The right ovary measures 2.7 x 2.1 x 2.6 cm. The left ovary measures 2.3 x 1.7 x 2.1 cm. . Doppler interrogation demonstrates flow to each ovary. Other: None IMPRESSION: THICKENED AND HETEROGENEOUS ENDOMETRIUM. THIS IS CONSISTENT WITH THE CT FINDINGS. SUGGEST FOLLOW-UP IN 2-3 MENSTRUAL CYCLES.
[2016-09-18 18:40] VITALS: BP 148/82
--- NOTE | 2016-09-19 22:54 | ED ---
Rodriguez Mathis SooYoung, scribed for Jonathan Juarez MD on 09/18/16 at 1110 . Abdominal Pain/Female - HPI Summary HPI Summary: A 35 y/o F presents to ED with c/o suprapubic abd pain onset three days ago. Pain described as spasms/cramping radiates directly to back. Associated sx: diarrhea onset yesterday, decreased PO due to pain. Denies: nausea/vomiting, dysuria, hematuria, frequency. Secondary c/o bug bite to L elbow that is painful with yellow exudate. Denies joint pains and aches. PMHx: asthma, HTN. Tubal ligation. Pt has 4 y/o son. Pt is a former IV drug user, but has been clean since August 24. - History of Current Complaint Chief Complaint: EDAbdPain Stated Complaint: ABD PAIN Time Seen by Provider: 09/18/16 11:02 Hx Obtained From: Patient Hx Last Menstrual Period: 1 WEEK AGO Onset/Duration: Lasting Days, Still Present Timing: Constant Severity Currently: Severe Pain Intensity: 10 Pain Scale Used: 0-10 Numeric Location: Suprapubic Radiates: Yes Radiates to: Back Character: Other: - spasms Aggravating Factor(s): Food Associated Signs and Symptoms: Positive: Diarrhea, Other: - pos: bug bite on LUE with pain and exudate; neg: joint pain/aches. Negative: Urinary Symptoms, Nausea, Vomiting Allergies/Adverse Reactions: Allergies Allergy/AdvReac Type Severity Reaction Status Date / Time Ketorolac Tromethamine Allergy Mild Rash, SOB Verified 09/18/16 13:22 [From Toradol] Tramadol Allergy See Comment Verified 09/18/16 13:22 PMH/Surg Hx/FS Hx/Imm Hx Previously Healthy: No Endocrine/Hematology History: Denies: Hx Diabetes - ONLY GESTATIONAL DIABETES Cardiovascular History: Reports: Hx Hypertension Denies: Hx Pacemaker/ICD Respiratory History: Reports: Hx Asthma History: Denies: Hx Renal Disease Sensory History: Denies: Hx Contacts or Glasses, Hx Hearing Aid Opthamlomology History: Denies: Hx Contacts or Glasses Neurological History: Reports: Other Neuro Impairments/Disorders - 2014 BLUNT HEAD TRAUMA Psychiatric History: Reports: Hx Anxiety, Hx Depression, Hx Substance Abuse - IV drugs (heroin) Denies: Hx Panic Disorder - Surgical History Surgery Procedure, Year, and Place: TUBAL LIGATION-CLUB FEET A CHILD REPAIRED -THROAT ABSCESS SURGIALLY DRAINED. 2 Infectious Disease History: Denies: Traveled Outside the [place] in Last 30 Days - Family History Known Family History: Positive: Diabetes Negative: Hypertension - Social History Occupation: Unemployed Lives: Alone Alcohol Use: None Hx Substance Use: Yes Substance Use Type: Reports: Heroin Substance Use Comment - Amount & Last Used: OXYCODONE, OXYCONTIN Hx Tobacco Use: No Smoking Status (MU): Never Smoked Tobacco Review of Systems Negative: Fever, Chills Negative: Erythema Negative: Sore Throat Negative: Chest Pain Negative: Shortness Of Breath, Cough Positive: Abdominal Pain, Diarrhea, Other - pos: decreased PO intake due to pain. Negative: Vomiting, Nausea Negative: dysuria, frequency, hematuria Negative: Arthralgia, Myalgia, Edema Skin: Other - pos: bug bite on LUE with pain, exudate Negative: Rash Neurological: Other - neg: dizziness All Other Systems Reviewed And Are Negative: Yes Physical Exam - Summary Physical Exam Summary: Constitutional: Well-developed, Well-nourished, Alert. (-) Distressed Skin: Warm, Dry; BOIL TO L ELBOW, APPROX 4MM ACROSS, CENTRAL PUNCTURE MOMO, NO ERYTHEMA MIGRANS. HENT: Normocephalic; Atraumatic Eyes: Conjunctiva normal Neck: Musculoskeletal ROM normal neck. (-) JVD, (-) Stridor, (-) Tracheal deviation Cardio: Rhythm regular, rate normal, Heart sounds normal; Intact distal pulses; The pedal pulses are 2+ and symmetric. Radial pulses are 2+ and symmetric. (-) Murmur Pulmonary/Chest wall: Effort normal. (-) Respiratory distress, (-) Wheezes, (-) Rales Abd: Soft, (-) Distension, RLQ AND SUPRAPUBIC TENDERNESS Musculoskeletal: (-) Edema Lymph: (-) Cervical adenopathy Neuro: Alert, Oriented x3 Psych: Mood and affect Normal Triage Information Reviewed: Yes Vital Signs On Initial Exam: Initial Vitals Temp Pulse Resp BP Pulse Ox 97.9 F 104 18 152/97 100 09/18/16 10:28 09/18/16 10:28 09/18/16 10:28 09/18/16 10:28 06/19/17 10:28 Vital Signs Reviewed: Yes Procedures - Incision and Drainage Site: L elbow Anesthesia: Lidocaine - with epi; 1% approx 3ml Instrument(s): Scalpel - made incision with 11 blade; only serosanguinous drainage Diagnostics - Vital Signs Vital Signs Temp Pulse Resp BP Pulse Ox 09/18/16 10:28 97.9 F 104 18 152/97 100 - Laboratory Result Diagrams: 09/18/16 12:20 09/18/16 12:20 Lab Statement: Any lab studies that have been ordered have been reviewed, and results considered in the medical decision making process. - CT A/P CT CT Interpretation: No Acute Changes - IMPRESSION: THE ENDOMETRIAL STRIPE IS MILDLY PROMINENT AND/OR THERE MAY BE A SMALL AMOUNT OF ENDOMETRIAL FLUID. THERE IS NO MASS OR INFLAMMATORY CHANGE. THE APPENDIX APPEARS NORMAL. INCIDENTAL SMALL PERIUMBILICAL HERNIA. CT Interpretation Completed By: Radiologist Re-Evaluation - Re-Evaluation 1 Re-Evaluation Time: 15:25 Change: Unchanged Comment: PELVIC EXAM PERFORMED. NURSE QUINTIN WAS PRESENT. PELVIC EXAM REVEALED: POSITIVE CERVICAL MOTION TENDERNESS, GREEN DISCHARGE, FRIABLE APPEARING CERVIX, BILAT ADNEXAL TENDERNESS. Abdominal Pain Fem Course/Dx - Course Course Of Treatment: Pt is a 35 y/o F presenting with c/o suprapubic abd pain onset three days ago. Described as spasms/cramping radiating directly to back. Associated sx: diarrhea onset yesterday, decreased PO due to pain. Denies: nausea/vomiting, dysuria, hematuria, frequency. Secondary c/o bug bite to L elbow that is painful with yellow exudate. Denies joint pains and aches. Pt is a former IV drug user, but has been clean since August 24. Pt given fluids, Keflex in ED per her request. UA results are nml except a specific gravity of 1.004. A/P CT shows "THE ENDOMETRIAL STRIPE IS MILDLY PROMINENT AND/OR THERE MAY BE A SMALL AMOUNT OF ENDOMETRIAL FLUID. THERE IS NO MASS OR INFLAMMATORY CHANGE. THE APPENDIX APPEARS NORMAL. INCIDENTAL SMALL PERIUMBILICAL HERNIA.". After pelvic exam, pt given Zithro, Flagyl in ED. SO to Dr. Boyd pending U/S results. Dispo intructions provided if U/S is nml: F/U with OBGYN in the next few days, D/C home with Flagyl, Doxy, Keflex. - Diagnoses Provider Diagnoses: PID (pelvic inflammatory disease), skin boil Discharge - Discharge Plan Condition: Stable Disposition: OTHER Discharge Disposition Comment: SO to Dr. Boyd pending U/S results; if nml, can D/C home. Prescriptions: Cephalexin CAP* [Keflex CAP*] 500 mg PO QID #40 cap DOXYcycline CAP(*) [DOXYcycline 100MG CAP(*)] 100 mg PO BID #20 cap Metronidazole [Flagyl 500 MG TAB] 500 mg PO BID #20 tab Patient Education Materials: Cephalexin (By mouth), Pelvic Inflammatory Disease (ED), Doxycycline (By mouth), Metronidazole (By mouth), Abscess (ED) Referrals: No Primary Care Phys,NOPCP [Primary Care Provider] - Eliza Valenzuela MD [Medical Doctor] - 3 Days (Follow up with OBGYN in the next few days.) Additional Instructions: Follow up with OBGYN in the next few days. Return to the emergency department for changing or worsening or persistent symptoms. The documentation as recorded by the Rodriguez zhong SooYoung accurately reflects the service I personally performed and the decisions made by me, Jonathan Juarez MD.
--- NOTE | 2016-09-20 18:30 | ED ---
Progress - Progress Note Progress Note: Pt's vaginal cx reveals neg gardnerella and positive for maritza. She was d/c'd w/ keflex, flagyl, and doxycycline. Needs tx of yeast infection. Attempted to call pt - no option to leave message. Spoke w/ pt's mother, Steffany Lehman, who reports she will relay message to call here to her daughter. Mom confirms current address in chart is correct. Will mail letter to pt. laura Gallagher clerk, aware. Re-Evaluation - Re-Evaluation 1 Re-Evaluation Time: 15:25 Change: Unchanged Comment: PELVIC EXAM PERFORMED. NURSE QUINTIN WAS PRESENT. PELVIC EXAM REVEALED: POSITIVE CERVICAL MOTION TENDERNESS, GREEN DISCHARGE, FRIABLE APPEARING CERVIX, BILAT ADNEXAL TENDERNESS. Course/Dx - Course Course Of Treatment: Pt is a 35 y/o F presenting with c/o suprapubic abd pain onset three days ago. Described as spasms/cramping radiating directly to back. Associated sx: diarrhea onset yesterday, decreased PO due to pain. Denies: nausea/vomiting, dysuria, hematuria, frequency. Secondary c/o bug bite to L elbow that is painful with yellow exudate. Denies joint pains and aches. Pt is a former IV drug user, but has been clean since August 24. Pt given fluids, Keflex in ED per her request. UA results are nml except a specific gravity of 1.004. A/P CT shows "THE ENDOMETRIAL STRIPE IS MILDLY PROMINENT AND/OR THERE MAY BE A SMALL AMOUNT OF ENDOMETRIAL FLUID. THERE IS NO MASS OR INFLAMMATORY CHANGE. THE APPENDIX APPEARS NORMAL. INCIDENTAL SMALL PERIUMBILICAL HERNIA.". After pelvic exam, pt given Zithro, Flagyl in ED. SO to Dr. Boyd pending U/S results. Dispo intructions provided if U/S is nml: F/U with OBGYN in the next few days, D/C home with Flagyl, Doxy, Keflex. - Diagnoses Provider Diagnoses: PID (pelvic inflammatory disease), skin boil
== END ==
LOC: ED 10:24
DX: N73.9 Female pelvic inflammatory disease, unspecified (principal); L02.424 Furuncle of left upper limb; R19.7 Diarrhea, unspecified; R10.9 Unspecified abdominal pain
CPT/HCPCS: 10060; 36415; 74177; 76830; 80053; 81003; 84702; 85025; 87480; 87491; 87510; 87591; 87661; 96374; 96375; 99282; A9270-GY; J0696; Q9967

== ENCOUNTER → 2016-09-20 12:53 | Emergency (ER) | payer OTHER ==
[~2016-09-20 12:53] MED LIST changes: -Azithromycin TAB* 250 MG PO ONE; -Cephalexin CAP* 500 MG PO ONE; -HYDROmorphone* 1 MG/ML 1 ML SYR IV ONE; -Iohexol 300* (CONTRAST) 10 ML SDV IV ONE; -Lidocaine 2.5%/Prilocain 2.5%* 5 GM TUBE TOPICAL ONE; -Metoclopramide IV* 5 MG/ML 2 ML VIAL IV ONE; -NS 0.9% 1000 ML* 1,000 ML IV ONE; -Ondansetron INJ* 2 MG/ML VIAL IV ONE; -cefTRIAXone(*) 1 GM in NS 0.9% 50 ML* 50 ML IVPB ONE; -metroNIDAZOLE TAB* 250 MG PO ONE
[2016-09-20 15:53] LABS: Hematocrit 41 % (35-47); Hemoglobin 13.5 g/dl (12.0-16.0); Mean Corpuscular HGB Conc 33 g/dl (31-36); Mean Corpuscular Hemoglobin 27 pg (27-31); Mean Corpuscular Volume 80 fL (80-97); Mean Platelet Volume 7 um3 (7.4-10.4); Red Blood Count 5.04 10^6/ul (4.0-5.4); Red Cell Distribution Width 16 % (10.5-15); White Blood Count 14.7 10^3/ul (3.5-10.8)
[2016-09-20 16:36] VITALS: BP 138/80
--- NOTE | 2016-09-20 23:48 | ED ---
Eric Mathis Alfonso, scribed for Abiel Boyd MD on 09/20/16 at 1509 . Abdominal Pain/Female - HPI Summary HPI Summary: This patient is a 35 year old female presenting to [facility] c/o sharp abdominal pain since approximately one week ago. She reports the pain is suprapubic and radiates to her back. The patient reports not sleeping secondary to discomfort. She rates the severity 10/10 in severity. Symptoms aggravated and alleviated by nothing. She presented to the ED for these symptoms 2 days ago and reports they have since worsened. - History of Current Complaint Chief Complaint: EDAbdPain Stated Complaint: PELVIC/ABD/BACK PAIN Time Seen by Provider: 09/20/16 14:43 Hx Obtained From: Patient Onset/Duration: Sudden Onset, Lasting Weeks - 1 week, Still Present Timing: Constant Severity Initially: Severe Severity Currently: Severe Pain Intensity: 10 Pain Scale Used: 0-10 Numeric Location: Suprapubic Radiates: Yes Radiates to: Back Character: Sharp Aggravating Factor(s): Nothing Alleviating Factor(s): Nothing Associated Signs and Symptoms: Positive: Other: - Positive insomnia Allergies/Adverse Reactions: Allergies Allergy/AdvReac Type Severity Reaction Status Date / Time Ketorolac Tromethamine Allergy Mild Rash, SOB Verified 09/20/16 13:08 [From Toradol] Tramadol Allergy See Comment Verified 09/20/16 13:08 PMH/Surg Hx/FS Hx/Imm Hx Endocrine/Hematology History: Denies: Hx Diabetes - ONLY GESTATIONAL DIABETES Cardiovascular History: Reports: Hx Hypertension Denies: Hx Pacemaker/ICD Respiratory History: Reports: Hx Asthma History: Denies: Hx Renal Disease Sensory History: Denies: Hx Contacts or Glasses, Hx Hearing Aid Opthamlomology History: Denies: Hx Contacts or Glasses Neurological History: Reports: Other Neuro Impairments/Disorders - 2014 BLUNT HEAD TRAUMA Psychiatric History: Reports: Hx Anxiety, Hx Depression, Hx Substance Abuse - IV drugs (heroin) Denies: Hx Panic Disorder - Surgical History Surgery Procedure, Year, and Place: TUBAL LIGATION-CLUB FEET A CHILD REPAIRED -THROAT ABSCESS SURGIALLY DRAINED. 2 Infectious Disease History: No Infectious Disease History: Denies: Traveled Outside the [place] in Last 30 Days - Family History Known Family History: Positive: Diabetes Negative: Hypertension - Social History Alcohol Use: None Hx Substance Use: Yes Substance Use Type: Reports: Other Substance Use Comment - Amount & Last Used: OXYCODONE, OXYCONTIN Hx Tobacco Use: No Smoking Status (MU): Never Smoked Tobacco Review of Systems Positive: Abdominal Pain - sharp suprapubic pain that radiates to her back Neurological: Other - Positive insomnia All Other Systems Reviewed And Are Negative: Yes Physical Exam Triage Information Reviewed: Yes Vital Signs On Initial Exam: Initial Vitals Temp Pulse Resp BP Pulse Ox 98.5 F 98 16 162/96 100 09/20/16 13:02 09/20/16 13:02 09/20/16 13:02 09/20/16 13:02 09/20/16 13:02 Vital Signs Reviewed: Yes Appearance: Positive: Well-Appearing, No Pain Distress, Obese Skin: Positive: Warm, Skin Color Reflects Adequate Perfusion, Dry Head/Face: Positive: Normal Head/Face Inspection Eyes: Positive: Normal ENT: Positive: Normal ENT inspection Neck: Positive: Supple, Nontender Respiratory/Lung Sounds: Positive: Clear to Auscultation, Breath Sounds Present Cardiovascular: Positive: RRR Abdomen Description: Positive: Other: - Positive tenderness in lower abdomen; Negative rebound Bowel Sounds: Positive: Present Musculoskeletal: Positive: Normal Neurological: Positive: Normal, Sensory/Motor Intact, Alert, Oriented to Person Place, Time, CN Intact II-III Psychiatric: Positive: Affect/Mood Appropriate - [place] Coma Scale Coma Scale Total: 15 Diagnostics - Vital Signs Vital Signs Temp Pulse Resp BP Pulse Ox 09/20/16 13:05 98.5 F 99 16 162/96 100 09/20/16 13:02 98.5 F 98 16 162/96 100 - Laboratory Lab Results: Lab Results 09/20/16 09/20/16 Range/Units 15:40 15:40 WBC 14.7 H (3.5-10.8) 10^3/ul RBC 5.04 (4.0-5.4) 10^6/ul Hgb 13.5 (12.0-16.0) g/dl Hct 41 (35-47) % MCV 80 (80-97) fL MCH 27 (27-31) pg MCHC 33 (31-36) g/dl RDW 16 H (10.5-15) % Plt Count 444 (150-450) 10^3/ul MPV 7 L (7.4-10.4) um3 Neut % (Auto) 71.2 (38-83) % Lymph % (Auto) 22.4 L (25-47) % [place] % (Auto) 5.0 (1-9) % Eos % (Auto) 0.5 (0-6) % Baso % (Auto) 0.9 (0-2) % Absolute Neuts (auto) 10.5 H (1.5-7.7) 10^3/ul Absolute Lymphs (auto) 3.3 (1.0-4.8) 10^3/ul Absolute Monos (auto) 0.7 (0-0.8) 10^3/ul Absolute Eos (auto) 0.1 (0-0.6) 10^3/ul Absolute Basos (auto) 0.1 (0-0.2) 10^3/ul Absolute Nucleated RBC 0 10^3/ul Nucleated RBC % 0 C-Reactive Protein 1.41 (< 5.00) mg/L Result Diagrams: 09/20/16 15:40 Lab Statement: Any lab studies that have been ordered have been reviewed, and results considered in the medical decision making process. Abdominal Pain Fem Course/Dx - Course Course Of Treatment: Ms. Lehman was unable to take her antibiotics until today and her pain got worse. Her WBC's are up a bit but I don't think I need to repeat the U/S. I will treat her pain. - Diagnoses Provider Diagnoses: PID (acute pelvic inflammatory disease) Discharge - Discharge Plan Condition: Stable Disposition: HOME Prescriptions: oxyCODONE/Acetamin 5/325 MG* [Percocet 5/325 TAB*] 1 tab PO Q6H PRN #20 tab MDD 4 PRN Reason: Pain Patient Education Materials: Pelvic Inflammatory Disease (ED) Referrals: [facility] [Provider Group] - 3 Days Additional Instructions: Follow up with your primary care provider. The documentation as recorded by the Eric zhong Alfonso accurately reflects the service I personally performed and the decisions made by me, Abiel Boyd MD.
== END | disposition home or self-care (01) ==
LOC: ED 12:53
DX: N73.9 Female pelvic inflammatory disease, unspecified (principal); R10.9 Unspecified abdominal pain
CPT/HCPCS: 36415; 85025; 86140; 99282; A9270-GY

== ENCOUNTER 2016-09-28 12:11 | Inpatient (IN) | payer OTHER ==
[2016-09-28] MEDS ORDERED: NS 0.9% 1000 ML* 1,000 ML IV ONE (12:51)
[2016-09-28 13:08] LABS: Hematocrit 45 % (35-47); Hemoglobin 15.1 g/dl (12.0-16.0); Mean Corpuscular HGB Conc 34 g/dl (31-36); Mean Corpuscular Hemoglobin 28 pg (27-31); Mean Corpuscular Volume 83 fL (80-97); Mean Platelet Volume 7 um3 (7.4-10.4); Red Blood Count 5.46 10^6/ul (4.0-5.4); Red Cell Distribution Width 16 % (10.5-15); White Blood Count 16.4 10^3/ul (3.5-10.8)
[2016-09-28 13:26] LABS: ALT 12 U/L (7-52); Albumin 4.6 g/dL (3.2-5.2); Alkaline Phosphatase 70 U/L (34-104); BUN/Creatinine Ratio 17.6 (8-20); Blood Urea Nitrogen 12 mg/dL (6-24); CO2 Carbon Dioxide 24 mmol/L (22-32); Calcium 10.4 mg/dL (8.6-10.3); Chloride 102 mmol/L (101-111); EGFR African American 125.2 (>60); EGFR Non-African American 97.4 (>60); Globulin 4.1 g/dL (2-4); Glucose 83 mg/dL (70-100); Sodium 135 mmol/L (133-145); Total Protein 8.7 g/dL (6.4-8.9)
[2016-09-28] MEDS ORDERED: HYDROmorphone* 1 MG/ML 1 ML SYR IV ONE (13:39)
[2016-09-28] MEDS ORDERED: Ondansetron INJ* 2 MG/ML VIAL IV ONE (13:39)
[2016-09-28] MEDS ORDERED: ceFOXitin 2 GM IVPREMIX* 2 GM/50 ML BAG IVPB ONE (13:42)
[2016-09-28] MEDS ORDERED: DOXYcycline IV* 100 MG in NS 0.9% 250 ML* 250 ML IVPB ONE (13:42)
[2016-09-28 14:15] LABS: Urine Bacteria Absent (Absent); Urine Bilirubin Negative (Negative); Urine Glucose Negative (Negative); Urine Nitrite Negative (Negative)
[2016-09-28 14:24] LABS: Anion Gap 9 mmol/L (2-11)
--- NOTE | 2016-09-28 15:27 | RAD ---
INDICATION: Pelvic inflammatory disease. COMPARISON: Comparison is made with a prior pelvic ultrasound from May 21, 2016. TECHNIQUE: Multiple real-time transvaginal images of the pelvis were obtained. FINDINGS: The uterus is normal in size, shape and echogenicity. The uterus measured 8.8 x 4.4 x 5.5 cm. The endometrium is abnormally thick measuring 2.1 cm in thickness which has increased in size from the prior study. The endometrium is hypervascular and there is some cystic change. The right ovary measured 2.8 x 2.0 x 2.0 cm. The left ovary measured 2.5 x 1.3 x 1.7 cm. There is vascular flow within both ovaries. There is a new small complex cyst present within the right ovary measured 1.6 x 1.4 x 1.6 cm. No abscess or hydrosalpinx is seen. There is a trace amount of free intraperitoneal fluid in the cul-de-sac. IMPRESSION: 1. THICKENED HETEROGENEOUS HYPERVASCULAR ENDOMETRIUM WHICH HAS PROGRESSED FROM THE PRIOR STUDY. THIS IS A NONSPECIFIC FINDING AND MAY BE RELATED TO AN INFECTIOUS PROCESS ALTHOUGH ENDOMETRIAL HYPERPLASIA OR CARCINOMA CANNOT BE EXCLUDED. RECOMMEND FURTHER CLINICAL EVALUATION OR A FOLLOW-UP PELVIC ULTRASOUND IN ONE MONTHS TIME. 2. SMALL SLIGHTLY COMPLEX CYST WITHIN THE RIGHT OVARY.
[2016-09-28] MEDS ORDERED: oxyCODONE/Acetamin 5/325 MG* TAB PO PRN (18:32)
[2016-09-28] MEDS ORDERED: Zolpidem TAB* 10 MG PO PRN (18:35)
[2016-09-28] MEDS: oxyCODONE/Acetamin 5/325 MG* TAB PO PRN (20:20)
[2016-09-28] MEDS: ceFOXitin 2 GM IVPREMIX* 2 GM/50 ML BAG IVPB SCH (20:25)
[2016-09-28] MEDS: cloNIDine TAB* 0.1 MG PO SCH (20:25)
--- NOTE | 2016-09-28 20:39 | ED ---
Dejah Mathis Edward, scribed for Abiel Boyd MD on 09/28/16 at 1317 . Abdominal Pain/Female - HPI Summary HPI Summary: 35 y/o female presents to ED c/o lower abdominal pain. The pain has been intermittent for the last few days, located in the pelvic region. Last night the pain was the most severe. Associated sx: vomiting, fever, chills, tachychardia. Patient was seen in the ED last week dx with PID. Patient stated she had adverse reactions to Doxycycline. - History of Current Complaint Chief Complaint: EDAbdPain Stated Complaint: FEVER,CHILS, ABD PAIN Time Seen by Provider: 09/28/16 13:15 Hx Obtained From: Patient Hx Last Menstrual Period: 1 WEEK AGO Onset/Duration: Gradual Onset, Lasting Days, Still Present Timing: Constant Severity Initially: Severe Severity Currently: Severe Pain Intensity: 10 Pain Scale Used: 0-10 Numeric Location: Discrete At: LUQ, Discrete At: LLQ Radiates: No Associated Signs and Symptoms: Positive: Fever, Vomiting, Other: - Chills, tachycardia Allergies/Adverse Reactions: Allergies Allergy/AdvReac Type Severity Reaction Status Date / Time Tramadol Allergy Severe See Comment Verified 09/28/16 14:07 Vancomycin Allergy Severe Rash Verified 09/28/16 14:07 Ketorolac Tromethamine Allergy Mild Rash, SOB Verified 09/20/16 13:08 [From Toradol] PMH/Surg Hx/FS Hx/Imm Hx Previously Healthy: No Endocrine/Hematology History: Denies: Hx Diabetes - ONLY GESTATIONAL DIABETES Cardiovascular History: Reports: Hx Hypertension Denies: Hx Pacemaker/ICD Respiratory History: Reports: Hx Asthma History: Denies: Hx Renal Disease Sensory History: Denies: Hx Contacts or Glasses, Hx Hearing Aid Opthamlomology History: Denies: Hx Contacts or Glasses Neurological History: Reports: Other Neuro Impairments/Disorders - 2014 BLUNT HEAD TRAUMA Psychiatric History: Reports: Hx Anxiety, Hx Depression, Hx Substance Abuse - IV drugs (heroin) Denies: Hx Panic Disorder - Surgical History Surgery Procedure, Year, and Place: TUBAL LIGATION-CLUB FEET A CHILD REPAIRED -THROAT ABSCESS SURGIALLY DRAINED. 2 Infectious Disease History: No Infectious Disease History: Denies: Traveled Outside the [place] in Last 30 Days - Family History Known Family History: Positive: Diabetes Negative: Hypertension - Social History Occupation: Unemployed Lives: Alone Alcohol Use: None Hx Substance Use: Yes Substance Use Type: Reports: Other Substance Use Comment - Amount & Last Used: OXYCODONE, OXYCONTIN Hx Tobacco Use: No Smoking Status (MU): Never Smoked Tobacco Review of Systems Positive: Fever, Chills Eyes: Negative ENT: Negative Cardiovascular: Negative Respiratory: Negative Positive: Abdominal Pain, Vomiting Genitourinary: Negative Musculoskeletal: Negative Skin: Negative Neurological: Negative Psychological: Normal All Other Systems Reviewed And Are Negative: Yes Physical Exam Triage Information Reviewed: Yes Vital Signs On Initial Exam: Initial Vitals Temp Pulse Resp BP Pulse Ox 99.4 F 127 20 166/94 99 09/28/16 12:15 09/28/16 12:15 09/28/16 12:15 09/28/16 12:15 09/28/16 12:15 Vital Signs Reviewed: Yes Appearance: Positive: Well-Appearing, No Pain Distress Skin: Positive: Warm, Skin Color Reflects Adequate Perfusion, Dry Head/Face: Positive: Normal Head/Face Inspection Eyes: Positive: Normal ENT: Positive: Normal ENT inspection Neck: Positive: Supple, Nontender Respiratory/Lung Sounds: Positive: Clear to Auscultation, Breath Sounds Present Cardiovascular: Positive: Tachycardia Abdomen Description: Positive: Soft, Other: - Tender in bilateral lower quadrant to palpation, nontender in RUQ. Bowel Sounds: Positive: Present Musculoskeletal: Positive: Normal Neurological: Positive: Normal Psychiatric: Positive: Normal, Affect/Mood Appropriate Diagnostics - Vital Signs Vital Signs Temp Pulse Resp BP Pulse Ox 09/28/16 12:17 97.7 F 130 20 166/94 99 09/28/16 12:15 99.4 F 127 20 166/94 99 - Laboratory Lab Results: Lab Results 09/28/16 Range/Units 12:47 WBC 16.4 H (3.5-10.8) 10^3/ul RBC 5.46 H (4.0-5.4) 10^6/ul Hgb 15.1 (12.0-16.0) g/dl Hct 45 (35-47) % MCV 83 (80-97) fL MCH 28 (27-31) pg MCHC 34 (31-36) g/dl RDW 16 H (10.5-15) % Plt Count 452 H (150-450) 10^3/ul MPV 7 L (7.4-10.4) um3 Neut % (Auto) 73.1 (38-83) % Lymph % (Auto) 21.0 L (25-47) % [place] % (Auto) 4.4 (1-9) % Eos % (Auto) 0.8 (0-6) % Baso % (Auto) 0.7 (0-2) % Absolute Neuts (auto) 12.0 H (1.5-7.7) 10^3/ul Absolute Lymphs (auto) 3.5 (1.0-4.8) 10^3/ul Absolute Monos (auto) 0.7 (0-0.8) 10^3/ul Absolute Eos (auto) 0.1 (0-0.6) 10^3/ul Absolute Basos (auto) 0.1 (0-0.2) 10^3/ul Absolute Nucleated RBC 0 10^3/ul Nucleated RBC % 0 Result Diagrams: 09/28/16 12:47 09/28/16 12:47 Lab Statement: Any lab studies that have been ordered have been reviewed, and results considered in the medical decision making process. - Ultrasound No standard instances Ultrasound Interpretation: Positive (See Comments) - TRANSVAGINAL US - 1. THICKENED HETEROGENEOUS HYPERVASCULAR ENDOMETRIUM WHICH HAS PROGRESSED FROM THE PRIOR STUDY. THIS IS A NONSPECIFIC FINDING AND MAY BE RELATED TO AN INFECTIOUS PROCESS ALTHOUGH ENDOMETRIAL HYPERPLASIA OR CARCINOMA CANNOT BE EXCLUDED. RECOMMEND FURTHER CLINICAL EVALUATION OR A FOLLOW-UP PELVIC ULTRASOUND IN ONE MONTHS TIME. 2. SMALL SLIGHTLY COMPLEX CYST WITHIN THE RIGHT OVARY. Ultrasound Interpretation Completed By: Radiologist Abdominal Pain Fem Course/Dx - Course Course Of Treatment: Ms. Lehman has gotten worse in spite of PO antibiotics although she was not compliant with doxycycline. She presented tachycardic and had a leukocytosis. She was given fluids and antibiotics and an U/S R/O'd TOA. She will be admitted for PID. - Diagnoses Provider Diagnoses: Acute pelvic inflammatory disease (PID) Discharge - Discharge Plan Condition: Stable Disposition: ADMITTED TO [facility] documentation as recorded by the Dejah zhong Edward accurately reflects the service I personally performed and the decisions made by , Abiel Boyd MD.
[2016-09-29] MEDS: oxyCODONE/Acetamin 5/325 MG* TAB PO PRN ×6 (00:20→21:11)
[2016-09-29] MEDS: ceFOXitin 2 GM IVPREMIX* 2 GM/50 ML BAG IVPB SCH ×4 (02:14→19:42)
[2016-09-29] MEDS: DOXYcycline IV* 100 MG in NS 0.9% 250 ML* 250 ML IVPB SCH ×2 (04:18→17:21)
[2016-09-29] MEDS: Albuterol HFA INHALER* 8 gm MDI INH PRN ×3 (04:23→21:12)
[2016-09-29 06:19] LABS: Hematocrit 39 % (35-47); Hemoglobin 12.9 g/dl (12.0-16.0); Mean Corpuscular HGB Conc 34 g/dl (31-36); Mean Corpuscular Hemoglobin 28 pg (27-31); Mean Corpuscular Volume 83 fL (80-97); Mean Platelet Volume 7 um3 (7.4-10.4); Red Blood Count 4.62 10^6/ul (4.0-5.4); Red Cell Distribution Width 16 % (10.5-15); White Blood Count 10.9 10^3/ul (3.5-10.8)
--- NOTE | 2016-09-29 06:44 | HP ---
HISTORY AND PHYSICAL: DATE OF ADMISSION: HISTORY OF PRESENT ILLNESS: The patient is a 35-year-old para 2-0-0-2 and she states her last menstrual period was approximately 4 years ago after the of her second child. The patient is sexually active, bilateral tubal ligation for control. The patient presented to the emergency room last week and was diagnosed with pelvic inflammatory disease. She was afebrile at that time. The CAT scan showed a normal appendix, no tuboovarian abscess, and the patient was discharged with outpatient PID therapy. The patient did not take the doxycycline as prescribed because she was concerned that she would have a reaction to it. The patient returned to the emergency room today complaining of worsening pain in the mid lower pelvis and left lower quadrant. The patient is afebrile today. Her white blood cell count is elevated and on ultrasound the endometrium appears consistent with inflammatory change. There are no tuboovarian abscesses and there is normal blood flow to both ovaries. PAST MEDICAL HISTORY: The patient has a history of asthma for which she uses albuterol inhaler as needed. Chronic hypertension for which she takes clonidine 3 times a day. She states she has not taken the clonidine in 2 or 3 days. 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 The patient recently had a drainage of abscess in her hand and foot, one in April 2006, one in July 2006; at that time, she was using heroin. She states she has not used heroin since the end of July. SOCIAL HISTORY: The patient is a nonsmoker. PHYSICAL EXAMINATION GENERAL: The patient appears comfortable. She had already been medicated for pain with Dilaudid when I did my exam. She had mild tenderness in the mid pubic region. No rebound, no guarding, no CVA tenderness. The patient declined a pelvic exam as she was concerned that that would cause her too much pain. She said that she was having vaginal discharge a week ago, but was no longer having that today. She has not had any vaginal bleeding. VITAL SIGNS: She is afebrile. Her pulse is in the 120s, respirations 20, blood pressure 160/90, pulse ox 99% on room air. DIAGNOSTIC STUDIES/LAB DATA: Lab results: Her white blood cell count was 16.4 , hemoglobin 15, hematocrit 45, platelets 452. IMPRESSION: Pelvic inflammatory disease, worsened since last week. PLAN: Admit for IV antibiotic therapy. We are going to use cefoxitin 2 g q.6 hours and doxycycline 100 mg IV q.12 hours. She has already received the dose of doxycycline in the emergency room and did not have any adverse reaction to it and she is willing to continue it now in the hospital. She was taking metronidazole 500 mg twice a day at home since last week. We are not going to continue that at this point. She is requesting pain medication. She is written for Percocet 1 or 2 tablets every 4 hours as needed for pain. We are going to continue the clonidine as she was taking it at home 3 times a day for her chronic hypertension. The albuterol inhaler will be available p.r.n. for her history of asthma. She takes Ambien 10 mg p.r.n. insomnia, that was also ordered. [id number]/CPS #: [id number] MTDD
[2016-09-29] MEDS: Ondansetron INJ* 2 MG/ML VIAL IV PRN ×2 (07:12→14:12)
[2016-09-29] MEDS: cloNIDine TAB* 0.1 MG PO SCH ×3 (08:19→21:13)
--- NOTE | 2016-09-29 08:25 | PN ---
Progress Note - Progress Note Date of Service: 09/29/16 SOAP: Subjective:pt with still some abdomninal soreness. eating drinking ok. pain meds by mouth [] Objective:vitals stable. afebrile abdomen soft nontender, no rebound , no guarding. ext. nontender, no c/c/ e []wbc decreased in to normal range GC/ Chlamydia negative Assessment:hospital day # 2 with PID unresponsive to outpatient management Plan:continue IV abx may consider home after 24- 48 hr of iv antibiotic []
[2016-09-30] MEDS: oxyCODONE/Acetamin 5/325 MG* TAB PO PRN ×4 (01:25→13:41)
[2016-09-30] MEDS: ceFOXitin 2 GM IVPREMIX* 2 GM/50 ML BAG IVPB SCH ×2 (01:27→08:16)
[2016-09-30] MEDS: DOXYcycline IV* 100 MG in NS 0.9% 250 ML* 250 ML IVPB SCH (04:25)
[2016-09-30] MEDS ORDERED: NS 0.9% 250 ML* 250 ML IV ONE (05:00)
[2016-09-30] MEDS: Ondansetron INJ* 2 MG/ML VIAL IV PRN (09:11)
[2016-09-30] MEDS: cloNIDine TAB* 0.1 MG PO SCH (09:16)
[2016-09-30 11:57] VITALS: BP 131/75
== END 2016-09-30 13:45 | disposition home or self-care (01) | DRG 531 ==
LOC: ED 12:11 → SSU 18:29
PROVIDERS: ADMIT Obstetrics & Gynecology; ATTEND Obstetrics & Gynecology
DX: N73.9 Female pelvic inflammatory disease, unspecified (principal); I10 Essential (primary) hypertension; F11.90 Opioid use, unspecified, uncomplicated; R00.0 Tachycardia, unspecified; D72.829 Elevated white blood cell count, unspecified; J45.909 Unspecified asthma, uncomplicated; F41.9 Anxiety disorder, unspecified; F32.9 Major depressive disorder, single episode, unspecified; Z98.51 Tubal ligation status; Z88.6 Allergy status to analgesic agent; Z88.1 Allergy status to other antibiotic agents; Z56.0 Unemployment, unspecified; Z83.3 Family history of diabetes mellitus
CPT/HCPCS: 36415; 76830; 80053; 81003; 81015; 83605; 84702; 85025; 85610; 85730; 86140; 87077; 87086; 87186; A9270-GY; J0694; J1170; J2405

== ENCOUNTER 2016-10-03 12:54 | Emergency (ER) | payer OTHER ==
[2016-10-03] MEDS ORDERED: HYDROcodone/ACETAMIN 5-325 MG* 1 TAB PO ONE (14:24)
[2016-10-03 15:34] VITALS: BP 135/83
== END 2016-10-03 15:15 | disposition left against medical advice (07) ==
LOC: UCEAST 12:54
DX: R10.9 Unspecified abdominal pain (principal); Z53.21 Procedure and treatment not carried out due to patient leaving prior to being seen by health care provider
CPT/HCPCS: 99212; G0463

== ENCOUNTER 2016-10-05 09:47 | Emergency (ER) | payer OTHER ==
[2016-10-05 13:23] LABS: Urine Bacteria Absent (Absent); Urine Bilirubin Negative (Negative); Urine Glucose Negative (Negative); Urine Nitrite Negative (Negative)
[2016-10-05 14:12] LABS: Hematocrit 44 % (35-47); Hemoglobin 14.9 g/dl (12.0-16.0); Mean Corpuscular HGB Conc 34 g/dl (31-36); Mean Corpuscular Hemoglobin 28 pg (27-31); Mean Corpuscular Volume 84 fL (80-97); Mean Platelet Volume 7 um3 (7.4-10.4); Red Blood Count 5.28 10^6/ul (4.0-5.4); Red Cell Distribution Width 16 % (10.5-15); White Blood Count 9.1 10^3/ul (3.5-10.8)
[2016-10-05 14:34] LABS: Albumin 4.6 g/dL (3.2-5.2); BUN/Creatinine Ratio 18.6 (8-20); C Reactive Protein 2.35 mg/L (< 5.00); Calcium 10.3 mg/dL (8.6-10.3); EGFR African American 147.5 (>60); EGFR Non-African American 114.7 (>60); Globulin 4.2 g/dL (2-4); Potassium 4.1 mmol/L (3.5-5.0); Total Bilirubin 0.3 mg/dL (0.2-1.0); Total Protein 8.8 g/dL (6.4-8.9)
[2016-10-05] MEDS ORDERED: oxyCODONE/Acetamin 5/325 MG* TAB PO ONE (14:47)
--- NOTE | 2016-10-05 17:07 | RAD ---
Indication: Evaluate for tubo-ovarian abscess. Real-time sonography of the pelvis was performed. The uterus measures 8.0 cm in length x 4.0 cm AP x 4.8 cm in width. Endometrial echo measures 8 mm. There is fluid in the endometrial cavity. The degree of echogenicity in the endometrium is decreased since September 28, 2016 with increased fluid. The possibility of endometritis should BE considered as there is hypervascular flow. The right ovary measures 2.6 x 1.7 x 1.4 cm a complex cyst in the right ovary measuring up to 12 x 0.5 x 0.7 mm. Left ovary measures 2.6 x 1.4 x 1.2 cm. IMPRESSION: Fluid in the endometrium. The possibility of endometritis should BE considered.
[2016-10-05 18:05] VITALS: BP 138/74
--- NOTE | 2016-10-08 22:54 | ED ---
Nicole Mathis Salem, scribed for Jonathan Juarez MD on 10/05/16 at 1446 . Abdominal Pain/Female - HPI Summary HPI Summary: Patient is a 35 F who presents to the ED with lower abd pain and vomiting, worse since last week. Pt was in the ED with the same pain last week and then admitted for 2 days. Pt was diagnosed with endometriosis and was positive for yeast per EMR. She was DCd with Doxycycline twice a day, but experienced nausea with it. She states that she took Naproxen at 0630 this morning. She was instructed to return to the ED for worsening of symptoms by CUSTOMER SERVICE REP. She has an appointment to see CUSTOMER SERVICE REP next week. Pt is on her menstrual period currently for the first time in 3 years, per patient. - History of Current Complaint Chief Complaint: EDAbdPain Stated Complaint: STOMACH/BACK PAIN Time Seen by Provider: 10/05/16 12:17 Hx Obtained From: Patient Hx Last Menstrual Period: currently Onset/Duration: Gradual Onset, Lasting Weeks, Still Present Timing: Constant Severity Initially: Moderate Severity Currently: Moderate Pain Intensity: 10 Pain Scale Used: 0-10 Numeric Location: Discrete At: LUQ, Discrete At: LLQ Radiates: No Aggravating Factor(s): Nothing Alleviating Factor(s): Nothing Associated Signs and Symptoms: Positive: Nausea, Vomiting Allergies/Adverse Reactions: Allergies Allergy/AdvReac Type Severity Reaction Status Date / Time Tramadol Allergy Severe See Comment Verified 10/03/16 13:17 Vancomycin Allergy Severe Rash Verified 10/03/16 13:17 Ketorolac Tromethamine Allergy Mild Rash, SOB Verified 10/03/16 13:17 [From Toradol] PMH/Surg Hx/FS Hx/Imm Hx Endocrine/Hematology History: Denies: Hx Diabetes - ONLY GESTATIONAL DIABETES, Hx Anemia Cardiovascular History: Reports: Hx Hypertension Denies: Hx Pacemaker/ICD Respiratory History: Reports: Hx Asthma, Hx Seasonal Allergies History: Denies: Hx Renal Disease Musculoskeletal History: Reports: Hx Back Problems Sensory History: Denies: Hx Contacts or Glasses, Hx Hearing Aid Opthamlomology History: Denies: Hx Contacts or Glasses Neurological History: Reports: Hx Seizures - allergy to Tramadol, Other Neuro Impairments/Disorders - 2013 BLUNT HEAD TRAUMA Psychiatric History: Reports: Hx Anxiety, Hx Depression, Hx Substance Abuse - IV drugs (heroin) Denies: Hx Panic Disorder - Surgical History Surgery Procedure, Year, and Place: TUBAL LIGATION-CLUB FEET A CHILD REPAIRED -THROAT ABSCESS SURGIALLY DRAINED. 2 Hx Anesthesia Reactions: No Infectious Disease History: No Infectious Disease History: Denies: Traveled Outside the [place] in Last 30 Days - Family History Known Family History: Positive: Diabetes Negative: Hypertension - Social History Alcohol Use: None Hx Substance Use: Yes Substance Use Comment - Amount & Last Used: OXYCODONE, OXYCONTIN Hx Tobacco Use: No Smoking Status (MU): Never Smoked Tobacco Review of Systems Negative: Fever, Chills Negative: Erythema Negative: Sore Throat Negative: Chest Pain Negative: Shortness Of Breath, Cough Positive: Abdominal Pain, Vomiting, Nausea Negative: dysuria, hematuria Negative: Myalgia, Edema Negative: Rash Neurological: Other - No dizziness. All Other Systems Reviewed And Are Negative: Yes Physical Exam - Summary Physical Exam Summary: Constitutional: Well-developed, Well-nourished, Alert. (-) Distressed Skin: Warm, Dry HENT: Normocephalic; Atraumatic Eyes: Conjunctiva normal Neck: Musculoskeletal ROM normal neck. (-) JVD, (-) Stridor, (-) Tracheal deviation Cardio: Rhythm regular, rate normal, Heart sounds normal; Intact distal pulses; The pedal pulses are 2+ and symmetric. Radial pulses are 2+ and symmetric. (-) Murmur Pulmonary/Chest wall: Effort normal. (-) Respiratory distress, (-) Wheezes, (-) Rales Abd: Soft, (-) Distension, (-) Guarding, (-) Rebound. Lower abd tenderness. Musculoskeletal: (-) Edema Lymph: (-) Cervical adenopathy Neuro: Alert, Oriented x3 Psych: Mood and affect Normal Triage Information Reviewed: Yes Vital Signs On Initial Exam: Initial Vitals Temp Pulse Resp BP Pulse Ox 98.8 F 108 19 148/92 100 10/05/16 10:14 10/05/16 10:14 10/05/16 10:14 10/05/16 10:14 10/05/16 10:14 Vital Signs Reviewed: Yes - [place] Coma Scale Coma Scale Total: 15 Diagnostics - Vital Signs Vital Signs Temp Pulse Resp BP Pulse Ox 10/05/16 14:33 88 100 10/05/16 14:03 83 100 10/05/16 14:01 142/78 10/05/16 13:54 92 99 10/05/16 13:43 84 99 10/05/16 13:00 132/92 10/05/16 12:30 97 120/81 100 10/05/16 12:00 97 142/84 100 10/05/16 11:54 98.7 F 105 16 159/87 99 10/05/16 10:14 98.8 F 108 19 148/92 100 - Laboratory Lab Results: Lab Results 10/05/16 10/05/16 10/05/16 Range/Units 11:35 14:00 14:00 WBC 9.1 (3.5-10.8) 10^3/ul RBC 5.28 (4.0-5.4) 10^6/ul Hgb 14.9 (12.0-16.0) g/dl Hct 44 (35-47) % MCV 84 (80-97) fL MCH 28 (27-31) pg MCHC 34 (31-36) g/dl RDW 16 H (10.5-15) % Plt Count 431 (150-450) 10^3/ul MPV 7 L (7.4-10.4) um3 Neut % (Auto) 67.3 (38-83) % Lymph % (Auto) 26.2 (25-47) % Cobb % (Auto) 4.2 (1-9) % Eos % (Auto) 1.1 (0-6) % Baso % (Auto) 1.2 (0-2) % Absolute Neuts (auto) 6.1 (1.5-7.7) 10^3/ul Absolute Lymphs (auto) 2.4 (1.0-4.8) 10^3/ul Absolute Monos (auto) 0.4 (0-0.8) 10^3/ul Absolute Eos (auto) 0.1 (0-0.6) 10^3/ul Absolute Basos (auto) 0.1 (0-0.2) 10^3/ul Absolute Nucleated RBC 0.02 10^3/ul Nucleated RBC % 0.2 Sodium 134 (133-145) mmol/L Potassium 4.1 (3.5-5.0) mmol/L Chloride 100 L (101-111) mmol/L Carbon Dioxide 28 (22-32) mmol/L Anion Gap 6 (2-11) mmol/L BUN 11 (6-24) mg/dL Creatinine 0.59 (0.51-0.95) mg/dL Est GFR ( Amer) 147.5 (>60) Est GFR (Non-Af Amer) 114.7 (>60) BUN/Creatinine Ratio 18.6 (8-20) Glucose 92 (70-100) mg/dL Lactic Acid (0.5-2.0) mmol/L Calcium 10.3 (8.6-10.3) mg/dL Total Bilirubin 0.30 (0.2-1.0) mg/dL AST 15 (13-39) U/L ALT 12 (7-52) U/L Alkaline Phosphatase 70 (34-104) U/L C-Reactive Protein 2.35 (< 5.00) mg/L Total Protein 8.8 (6.4-8.9) g/dL Albumin 4.6 (3.2-5.2) g/dL Globulin 4.2 H (2-4) g/dL Albumin/Globulin Ratio 1.1 (1-3) Lipase 29 (11.0-82.0) U/L Urine Color Straw Urine Appearance Clear Urine pH 8.0 (5-9) Ur Specific [place] 1.009 L (1.010-1.030) Urine Protein Negative (Negative) Urine Ketones Negative (Negative) Urine Blood 3+ H (Negative) Urine Nitrate Negative (Negative) Urine Bilirubin Negative (Negative) Urine Urobilinogen Negative (Negative) Ur Leukocyte Esterase Negative (Negative) Urine WBC (Auto) Absent (Absent) Urine RBC (Auto) 3+(>10/hpf) H (Absent) Ur Squamous Epith Cells Present H (Absent) Urine Bacteria Absent (Absent) Urine Glucose Negative (Negative) 10/05/16 Range/Units 14:00 WBC (3.5-10.8) 10^3/ul RBC (4.0-5.4) 10^6/ul Hgb (12.0-16.0) g/dl Hct (35-47) % MCV (80-97) fL MCH (27-31) pg MCHC (31-36) g/dl RDW (10.5-15) % Plt Count (150-450) 10^3/ul MPV (7.4-10.4) um3 Neut % (Auto) (38-83) % Lymph % (Auto) (25-47) % Cobb % (Auto) (1-9) % Eos % (Auto) (0-6) % Baso % (Auto) (0-2) % Absolute Neuts (auto) (1.5-7.7) 10^3/ul Absolute Lymphs (auto) (1.0-4.8) 10^3/ul Absolute Monos (auto) (0-0.8) 10^3/ul Absolute Eos (auto) (0-0.6) 10^3/ul Absolute Basos (auto) (0-0.2) 10^3/ul Absolute Nucleated RBC 10^3/ul Nucleated RBC % Sodium (133-145) mmol/L Potassium (3.5-5.0) mmol/L Chloride (101-111) mmol/L Carbon Dioxide (22-32) mmol/L Anion Gap (2-11) mmol/L BUN (6-24) mg/dL Creatinine (0.51-0.95) mg/dL Est GFR ( Amer) (>60) Est GFR (Non-Af Amer) (>60) BUN/Creatinine Ratio (8-20) Glucose (70-100) mg/dL Lactic Acid 1.2 (0.5-2.0) mmol/L Calcium (8.6-10.3) mg/dL Total Bilirubin (0.2-1.0) mg/dL AST (13-39) U/L ALT (7-52) U/L Alkaline Phosphatase (34-104) U/L C-Reactive Protein (< 5.00) mg/L Total Protein (6.4-8.9) g/dL Albumin (3.2-5.2) g/dL Globulin (2-4) g/dL Albumin/Globulin Ratio (1-3) Lipase (11.0-82.0) U/L Urine Color Urine Appearance Urine pH (5-9) Ur Specific [place] (1.010-1.030) Urine Protein (Negative) Urine Ketones (Negative) Urine Blood (Negative) Urine Nitrate (Negative) Urine Bilirubin (Negative) Urine Urobilinogen (Negative) Ur Leukocyte Esterase (Negative) Urine WBC (Auto) (Absent) Urine RBC (Auto) (Absent) Ur Squamous Epith Cells (Absent) Urine Bacteria (Absent) Urine Glucose (Negative) Result Diagrams: 10/05/16 14:00 10/05/16 14:00 Lab Statement: Any lab studies that have been ordered have been reviewed, and results considered in the medical decision making process. - Ultrasound No standard instances Ultrasound Interpretation Completed By: Radiologist - TRANSVAGINAL US IMPRESSION : Fluid in the endometrium. The possibility of endometritis should BE considered. Re-Evaluation - Re-Evaluation First Eval Re-Evaluation Time: 17:36 Comment: Discussed plan. Abdominal Pain Fem Course/Dx - Course Course Of Treatment: 35 y/o F presents with lower abd pain and vomiting, worse since last week. She has a hx of similar pain. Pt received Percocet in the ED course. US shows, per radiology, IMPRESSION: Fluid in the endometrium. The possibility of endometritis should BE. considered. Reviewed all her cultures and they are negative. Pt will be DC'd. - Diagnoses Provider Diagnoses: Endometriosis Discharge - Discharge Plan Condition: Stable Disposition: HOME Prescriptions: HYDROcodone/ACETAMIN 5-325 MG* [[place] 5-325 TAB*] 1 tab PO Q6H PRN #10 tab MDD 4 PRN Reason: Pain - Moderate To Severe Patient Education Materials: Endometriosis (ED), Ovarian Cyst (ED) Referrals: Cathryn Kam MD [Medical Doctor] - Additional Instructions: Please follow up with your CUSTOMER SERVICE REP in 2 days. RETURN TO THE EMERGENCY DEPARTMENT FOR CHANGING OR WORSENING SYMPTOMS. The documentation as recorded by the Nicole zhong Salem accurately reflects the service I personally performed and the decisions made by , Jonathan Juarez MD.
== END 2016-10-05 18:03 | disposition home or self-care (01) ==
LOC: ED 09:47
DX: N80.9 Endometriosis, unspecified (principal); R10.30 Lower abdominal pain, unspecified; R11.2 Nausea with vomiting, unspecified
CPT/HCPCS: 36415; 76830; 80053; 81003; 81015; 83605; 83690; 85025; 86140; 99283; A9270-GY

== ENCOUNTER 2016-12-12 10:23 | Emergency (ER) | payer OTHER ==
[2016-12-12] MEDS ORDERED: oxyCODONE/Acetamin 5/325 MG* TAB PO ONE (11:24)
--- NOTE | 2016-12-12 11:59 | UC ---
General HPI - HPI Summary HPI Summary: 36 y/o female sent from orthopedic office after elevated BP at office, per patient 180/110. Patient states has a 13 year history of high blood pressure, no PCP currently, was recently admitted to [facility] [place] with PID, changed from clonidine and amilodipine to only clonididine. - History of Current Complaint Chief Complaint: UCGeneralIllness Stated Complaint: HIGH BLOOD PRESSURE Time Seen by Provider: 12/12/16 11:08 Hx Last Menstrual Period: tubal - Allergy/Home Medications Allergies/Adverse Reactions: Allergies Allergy/AdvReac Type Severity Reaction Status Date / Time Tramadol Allergy Severe See Comment Verified 12/12/16 10:39 Vancomycin Allergy Severe Rash Verified 12/12/16 10:39 Ketorolac Tromethamine Allergy Mild Rash, SOB Verified 12/12/16 10:39 [From Toradol] Home Medications: Home Medications Naproxen Sodium [Naproxen Sodium 220 mg] 220 mg PO 12/12/16 [History] PMH/Surg Hx/FS Hx/Imm Hx - Surgical History Surgical History: Yes Surgery Procedure, Year, and Place: TUBAL LIGATION-CLUB FEET A CHILD REPAIRED -THROAT ABSCESS SURGIALLY DRAINED. 2 - Family History Known Family History: Positive: Diabetes Negative: Hypertension - Social History Alcohol Use: None Substance Use Type: None, Prescribed Substance Use Comment - Amount & Last Used: OXYCODONE, OXYCONTIN Smoking Status (MU): Light Every Day Tobacco Smoker Type: Cigarettes - Immunization History Most Recent Influenza Vaccination: never Most Recent Tetanus Shot: unknown Most Recent Pneumonia Vaccination: never Review of Systems Musculoskeletal: Arthralgia, Myalgia Neurological: Headache Psychological: Negative All Other Systems Reviewed And Are Negative: Yes Physical Exam Triage Information Reviewed: Yes Appearance: Well-Appearing, No Pain Distress, Well-Nourished Vital Signs: Initial Vital Signs Temp 99.1 F 12/12/16 10:34 Pulse 127 12/12/16 10:34 Resp 18 12/12/16 10:34 BP 156/104 12/12/16 10:34 Pulse Ox 99 12/12/16 10:34 Vital Signs Reviewed: Yes Eyes: Positive: Conjunctiva Clear, Other: - no papilledema Respiratory: Positive: Chest non-tender, Lungs clear, Normal breath sounds Cardiovascular: Positive: No Murmur, Pulses Normal, Brisk Capillary Refill, Tachycardia - 100-120 Abdomen Description: Positive: Nontender, No Organomegaly, Soft Musculoskeletal: Positive: Other: - R foot in CAM walker boot, recently seen b Dr. Flores Neurological Exam: Normal Psychological Exam: Normal Skin Exam: Normal Course/Dx - Course Course Of Treatment: patient given pain medication, decrease in pain however BP still 160/100 R arm, 150/100 L arm sitting with tachy and MCCANN. patient referred to ER, agreed to go by car, refused ambulance. - Differential Dx - Multi-Symptom Provider Diagnoses: hypertensive urgency, follow up in ER. Discharge - Discharge Plan Condition: Good Disposition: OTHER Discharge Disposition Comment: To ER Prescriptions: oxyCODONE/Acetamin 5/325 MG* [Percocet 5/325 TAB*] 1 tab PO Q4H PRN #10 tab MDD 6 PRN Reason: Pain Patient Education Materials: Hypertension (ED) Referrals: No Primary Care Phys,NOPCP [Primary Care Provider] - Osiel Estes MD [Medical Doctor] - ( ) Additional Instructions: - Patient educated to be seen at ER today due to elevated blood pressure with headache - Percocet for pain control
[2016-12-12] MEDS ORDERED: HYDROcodone/ACETAMIN 5-325 MG* 1 TAB PO ONE (12:00)
[2016-12-12 12:38] VITALS: BP 160/100
== END 2016-12-12 12:50 ==
LOC: UCEAST 10:23
DX: I16.0 Hypertensive urgency (principal); F17.210 Nicotine dependence, cigarettes, uncomplicated
CPT/HCPCS: 93005; 99212; A9270-GY; G0463

== ENCOUNTER 2017-01-17 14:54 | Emergency (ER) | payer OTHER ==
[2017-01-17 15:32] VITALS: BP 172/105
--- NOTE | 2017-01-17 15:35 | UC ---
Respiratory Complaint HPI - HPI Summary HPI Summary: 36 YEAR OLD FEMALE PRESENTS WITH COMPLAINS OF COUGH , CHEST CONGESTION AND SORE THROAT. - History of Current Complaint Chief Complaint: UCRespiratory Stated Complaint: COUGH Time Seen by Provider: 01/17/17 15:34 Hx Obtained From: Patient Hx Last Menstrual Period: one week ago Onset/Duration: Sudden Onset Severity Initially: Moderate Severity Currently: Moderate Pain Scale Used: 0-10 Numeric - 5 - Allergies/Home Medications Allergies/Adverse Reactions: Allergies Allergy/AdvReac Type Severity Reaction Status Date / Time Tramadol Allergy Severe See Comment Verified 01/17/17 15:32 Vancomycin Allergy Severe Rash Verified 01/17/17 15:32 Ketorolac Tromethamine Allergy Mild Rash, SOB Verified 01/17/17 15:32 [From Toradol] PMH/Surg Hx/FS Hx/Imm Hx Previously Healthy: Yes - Surgical History Surgical History: Yes Surgery Procedure, Year, and Place: TUBAL LIGATION-CLUB FEET A CHILD REPAIRED -THROAT ABSCESS SURGIALLY DRAINED. 2 - Family History Known Family History: Positive: Diabetes Negative: Hypertension - Social History Alcohol Use: None Substance Use Type: None Substance Use Comment - Amount & Last Used: OXYCODONE, OXYCONTIN Smoking Status (MU): Light Every Day Tobacco Smoker Type: Cigarettes - Immunization History Most Recent Influenza Vaccination: never Most Recent Tetanus Shot: unknown Most Recent Pneumonia Vaccination: never Review of Systems Constitutional: Fever, Chills Skin: Negative Eyes: Negative ENT: Sore Throat, Nasal Discharge, Sinus Congestion, Sinus Pain/Tenderness Respiratory: Cough Cardiovascular: Negative Gastrointestinal: Negative Genitourinary: Negative Motor: Negative Neurovascular: Negative Musculoskeletal: Negative Neurological: Negative Psychological: Negative Is Patient Immunocompromised?: Yes All Other Systems Reviewed And Are Negative: Yes Physical Exam Triage Information Reviewed: Yes Vital Signs: Initial Vital Signs Temp 36.8 C 01/17/17 15:29 Pulse 77 01/17/17 15:29 Resp 18 01/17/17 15:29 BP 172/105 01/17/17 15:29 Pulse Ox 100 01/17/17 15:29 Vital Signs Reviewed: Yes Eye Exam: Normal ENT: Positive: Pharyngeal erythema, Nasal congestion Dental Exam: Normal Neck exam: Normal Neck: Positive: 1 Respiratory: Positive: Rhonchi, Wheezing Cardiovascular Exam: Normal Abdominal Exam: Normal Musculoskeletal Exam: Normal Neurological Exam: Normal Psychological Exam: Normal Skin Exam: Normal UC Diagnostic Evaluation - Laboratory O2 Sat by Pulse Oximetry: 100 Respiratory Course/Dx - Differential Dx/Diagnosis Provider Diagnoses: COUGH. PHARYNGITIS. FEVER CHILLS Discharge - Discharge Plan Condition: Stable Disposition: HOME Prescriptions: Albuterol HFA INHALER* [Ventolin HFA Inhaler*] 1 puff INH Q6H PRN #1 mdi PRN Reason: Wheezing Azithromyxin JACKELYN (NF) [Z-Jackelyn (Zithromax) 250 mg tabs #6] 2 tab PO .TODAY, THEN 1 DAILY #6 tab LoraTADine TAB(NF) [Claritin 10 MG TAB(NF)] 10 mg PO DAILY #30 tab Promethazine-Dm [Promethazine/Dextromethor 6.25-15 mg/5Ml] 1 teasp PO BEDTIME PRN #120 ml PRN Reason: Cough Patient Education Materials: Acute Cough (ED) Forms: *Work Release Referrals: No Primary Care Phys,NOPCP [Primary Care Provider] -
== END 2017-01-17 16:27 | disposition home or self-care (01) ==
LOC: UCEAST 14:54
DX: R05 Cough (principal); J02.9 Acute pharyngitis, unspecified; R50.9 Fever, unspecified; F17.210 Nicotine dependence, cigarettes, uncomplicated
CPT/HCPCS: 87070; 87651; 99212; G0463

== ENCOUNTER → 2018-06-10 20:53 | Emergency (ER) | payer MEDICAID, OTHER ==
[2018-06-10 21:59] VITALS: BP 158/92
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
== END | disposition home or self-care (01) ==
LOC: ED 20:53
DX: F14.10 Cocaine abuse, uncomplicated (principal); F41.0 Panic disorder [episodic paroxysmal anxiety]; R00.2 Palpitations; R06.02 Shortness of breath; R42 Dizziness and giddiness; I10 Essential (primary) hypertension; R56.9 Unspecified convulsions; Z88.1 Allergy status to other antibiotic agents; Z88.5 Allergy status to narcotic agent
CPT/HCPCS: 99282

== ENCOUNTER 2018-07-12 12:38 | Emergency (ER) | payer MEDICAID ==
[2018-07-12] MEDS ORDERED: NS 0.9% 1000 ML** 1,000 ML IV ONE ×2 (13:52→17:13)
[2018-07-12] MEDS ORDERED: Acetaminophen TAB* 325 MG PO ONE (13:52)
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
[2018-07-12 14:28] LABS: ABS Basophils 0.1 10^3/ul (0-0.2); ABS Eosinophils 0 10^3/ul (0-0.6); ABS Lymphocytes 2.1 10^3/ul (1.0-4.8); ABS Monocytes 0.5 10^3/ul (0-0.8); ABS Neutrophils 10.2 10^3/ul (1.5-7.7); ABS Nucleated RBC 0 10^3/ul; Eosinophil % 0.4 %; Hematocrit 42 % (33-41); Hemoglobin 14.4 g/dL (12.0-16.0); Lymphocyte % 16.5 %; Mean Corpuscular HGB Conc 34 g/dL (31-36); Mean Corpuscular Hemoglobin 29 pg (27-31); Mean Corpuscular Volume 85 fL (80-97); Nucleated Red Blood Cells % 0; Platelet Count 400 10^3/uL (150-450); Red Blood Count 4.97 10^6 /uL (3.70-4.87); Red Cell Distribution Width 13 % (10.5-15); White Blood Count 12.9 10^3/uL (3.5-10.8)
[2018-07-12 14:46] LABS: ALT 23 U/L (7-52); AST 17 U/L (13-39); Albumin 4.7 g/dL (3.2-5.2); Albumin/Globulin Ratio 1.6 (1-3); Alkaline Phosphatase 71 U/L (34-104); Anion Gap 7 mmol/L (2-11); BUN/Creatinine Ratio 10.4 (8-20); Blood Urea Nitrogen 7 mg/dL (6-24); C Reactive Protein 3.82 mg/L (<8.01); CO2 Carbon Dioxide 30 mmol/L (22-32); Chloride 101 mmol/L (101-111); EGFR African American 118.6 (>60); Glucose 137 mg/dL (70-100); Potassium 3.9 mmol/L (3.5-5.0); Sodium 138 mmol/L (135-145); Total Protein 7.7 g/dL (6.4-8.9)
[2018-07-12 14:50] LABS: HCG Pregnancy < 0.60 mIU/mL
[2018-07-12] MEDS ORDERED: cloNIDine TAB* 0.1 MG PO ONE (15:00)
[2018-07-12 15:34] LABS: TSH (Thyroid Stimulating Horm) 0.47 mcIU/mL (0.34-5.60)
[2018-07-12] MEDS ORDERED: hydrALAZINE IV* 20 MG/ML VIAL IV SLOW PU ONE (16:41)
[2018-07-12] MEDS ORDERED: Iohexol 350* (CONTRAST) 500 ML MDV IV ONE (18:52)
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
[2018-07-12] MEDS ORDERED: Amoxicillin PO (*) 250 MG CAP PO ONE (21:18)
[2018-07-12 22:05] VITALS: BP 137/88
== END 2018-07-12 22:05 | disposition home or self-care (01) ==
LOC: ED 12:38
DX: I10 Essential (primary) hypertension (principal); K08.89 Other specified disorders of teeth and supporting structures; J45.909 Unspecified asthma, uncomplicated; R56.9 Unspecified convulsions; F17.210 Nicotine dependence, cigarettes, uncomplicated; Z88.3 Allergy status to other anti-infective agents; Z88.8 Allergy status to other drugs, medicaments and biological substances; Z79.899 Other long term (current) drug therapy
CPT/HCPCS: 36415; 70450; 71045; 71275; 80053; 84443; 84484; 84702; 85025; 86140; 93005; 96361; 96374; 99285; A9270-GY; J0360; Q9967